=== PATIENT | female | born 1960 | race Caucasian/White ===

== ENCOUNTER → 2020-03-23 15:41 | Outpatient (BNVA) | payer MEDICARE, SELFPAY | PROVIDERS: Visit Provider Internal Medicine | DX: R61 Generalized hyperhidrosis (principal); I10 Essential (primary) hypertension; E11.49 Type 2 diabetes mellitus with other diabetic neurological complication; E89.40 Asymptomatic postprocedural ovarian failure; R63.5 Abnormal weight gain; E55.9 Vitamin D deficiency, unspecified; E78.5 Hyperlipidemia, unspecified | CPT/HCPCS: 99204 ==

== ENCOUNTER 2020-05-14 10:51 | Outpatient (CLI) | payer MEDICARE, SELFPAY ==
[2020-05-14 11:56] LABS: Creatinine Urine, Random 58 mg/dL (28-217); Microalbum Creatinine Ratio Ur 34 mg/dL (0-20); Microalbumin Random Urine 2 ug/dL (0-20)
[2020-05-14 12:06] LABS: Estmated Average Glucose 166; Hemoglobin A1C 7.4 % (4.0-6.0)
[2020-05-14 12:11] LABS: 25 Hydroxy Vitamin D 18 ng/mL (30-100); Alanine Aminotransferase 27 U/L (0-33); Albumin Level 4.6 g/dL (3.5-5.2); Alkaline Phosphatase 109 IU/L (35-105); Anion Gap 14.9 (5-19); Aspartate Amino Transferase 20 U/L (0-32); Blood Urea Nitrogen 12 mg/dL (8-23); Calcium 9.9 mg/dL (8.5-10.5); Carbon Dioxide 28 mmol/L (22-29); Chloride 101 mmol/L (98-107); Chol HDL Ratio 7.42 mg/dL (0.0-4.40); Cholesterol 230 mg/dL (0-200); Globulin 3.4 g/dL (1.3-4.6); Glomerular Filtration Rate 101.3 mL/min (90-130); Glucose 143 mg/dL (65-115); HDL Cholesterol 31 mg/dL (60-100); LDL Cholesterol Calculated 153 mg/dL (50-129); LDL HDL Ratio 4.94 RATIO (0.00-3.22); Osmolality Calculated 292 mOsm/kg (285-295); Potassium 3.9 mmol/L (3.5-5.1); Sodium 140 mmol/L (136-145); Thyroid Stimulating Hormone 0.86 uIU/mL (0.27-4.20); Total Bilirubin 0.3 mg/dL (0.15-1.2); Triglycerides 229 mg/dL (0-150)
[2020-05-14 12:38] LABS: Free T4 Free Thyroxine 1.13 ng/dL (0.82-1.77)
== END 2020-05-14 10:52 | disposition home or self-care (01) ==
LOC: RADWPI 10:52
PROVIDERS: PCP Family Medicine; Visit Provider Internal Medicine
DX: R61 Generalized hyperhidrosis (principal); I10 Essential (primary) hypertension; E11.49 Type 2 diabetes mellitus with other diabetic neurological complication; E89.40 Asymptomatic postprocedural ovarian failure; R63.5 Abnormal weight gain; E55.9 Vitamin D deficiency, unspecified; E78.5 Hyperlipidemia, unspecified
CPT/HCPCS: 80053; 80061; 82044; 82306; 83036; 84439; 84443

== ENCOUNTER 2020-05-24 14:33 | Outpatient (CLI) | payer MEDICARE, SELFPAY ==
--- NOTE | 2020-05-24 13:45 | XR_ITS ---
WS: [id number] KNEE RIGHT TECHNIQUE: 3 views of the right knee CLINICAL INFORMATION: right medial knee pain COMPARISON: None. FINDINGS: Mild degenerative arthritis with medial and lateral joint space narrowing worse the medial joint comp artment. Hypertrophic changes along the joint line. Vascular calcification. Hypertrophic patella. Mod erate narrowing at the patellofemoral articulation. XR/XR knee RT 3V* [id number] IMPRESSION: Mild tricompartmental arthritis
== END 2020-05-24 14:34 | disposition home or self-care (01) ==
PROVIDERS: PCP Family Medicine; Visit Provider Family Medicine
DX: M17.11 Unilateral primary osteoarthritis, right knee (principal)
CPT/HCPCS: 73562

== ENCOUNTER 2020-05-24 14:51 | Outpatient (CLI) | payer MEDICARE, SELFPAY ==
--- NOTE | 2020-05-24 15:01 | XR_ITS ---
WS: [id number] SCREENING DEXA SCAN [place] CLINICAL INFORMATION: POST MENOPAUSAL COMPARISON: None. FINDINGS: The L1-L4 bone mineral density measures 0.948 g/cm2. This corresponds to a T score score of -1.9 and Z score of -1.2. Left femoral neck bone mineral density measures 0.885 g/cm2. This corresponds to a T score of -1.0 an d Z score of -0.4. Right femoral neck bone mineral density measures 0.924 g/cm2. This corresponds to a T score -0.7of an d Z score of -0.1. Mean femoral neck bone mineral density measures 0.904 g/cm2. This corresponds to a T score of -0.8 an d Z score of -0.3. XR/XR DEXA axial skeleton* [id number] IMPRESSION: Osteopenia Patient's FRAX calculated 10 year probability for major osteoporotic fracture i s 28.7 % and osteoporotic hip fracture is 3.7%.
== END 2020-05-24 14:52 | disposition home or self-care (01) ==
LOC: RADWPI 14:56
PROVIDERS: Family Provider Family Medicine; PCP Family Medicine; Visit Provider Internal Medicine
DX: Z78.0 Asymptomatic menopausal state (principal); M85.89 Other specified disorders of bone density and structure, multiple sites
CPT/HCPCS: 77080

== ENCOUNTER 2020-05-27 16:17 | Emergency (ER) | payer MEDICARE, SELFPAY ==
[2020-05-27] VITALS (8 sets, daily range): BP systolic 107–153; BP diastolic 71–97; PULSE 89–112; RESP 18–20; TEMP 37; O2SAT 92–96; BMI 35.1
--- NOTE | 2020-05-27 17:41 | CTR_ITS ---
PROCEDURE INFORMATION: Exam: CT Head Without Contrast Exam date and time: 05/27/2020 6:26 PM Age: 60 years old Clinical indication: Pain; Headache not specified; Patient HX: C/O SCHERER w vision changes nausea and HTN; Additional info: SCHERER, vision changes, nausea TECHNIQUE: Imaging protocol: Computed tomography of the head without contrast. Radiation optimization: All CT scans at this facility use at least one of these dose optimization techniques: automated exposure control; mA and/or kV adjustment per patient size (includes targeted exams where dose is matched to clinical indication); or iterative reconstruction. COMPARISON: No relevant prior studies available. RADIATION DOSE METRICS: Total DLP (mGy-cm): 735.19 FINDINGS: Brain: No evidence of active or acute intracranial pathologic process, hemorrhage, or trauma. Antecedent appearing lacunar infarction anterior limb left internal capsule. No visible cerebral edema. No mass effect. No midline shift. Cerebral ventricles: No ventriculomegaly. Bones/joints: Unremarkable. No acute fracture. Paranasal sinuses: Visualized sinuses are unremarkable. No fluid levels. Mastoid air cells: Visualized mastoid air cells are well aerated. Soft tissues: Unremarkable. CT/CT head wo con* [id number] IMPRESSION: 1. No evidence of active or acute intracranial pathologic process, hemorrhage, or trauma. 2. Antecedent appearing lacunar infarction anterior limb left internal capsule. Radiation Dose CTDIVOL = (mGy): DLP = 735.19 (mGy-cm)
--- NOTE | 2020-05-27 17:42 | ECG_ITS ---
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
--- NOTE | 2020-05-27 17:42 | XRR_ITS ---
PROCEDURE INFORMATION: Exam: XR Chest, 1 View Exam date and time: 05/27/2020 6:00 PM Age: 60 years old Clinical indication: Pain; Other: Head; Additional info: Hypertension TECHNIQUE: Imaging protocol: XR of the chest Views: 1 view. COMPARISON: No relevant prior studies available. FINDINGS: Lungs: Unremarkable. No consolidation. Pleural space: Unremarkable. No pleural effusion. No pneumothorax. Heart/Mediastinum: Cardiac structures and configuration with arteriosclerosis. Bones/joints: Unremarkable. Other findings: Heavy body habitus. XR/XR chest 1V portable [id number] IMPRESSION: Nonacute.
--- NOTE | 2020-05-27 17:51 | W.ED.GENADLT ---
HPI - General Adult General: Chief complaint: General Medical Stated complaint: high bp/pruitt/blurry vision Time Seen by Provider: 05/27/20 17:43 History of Present Illness: HPI narrative: This patient is a 60-year-old female who comes in with complaints of headache, vomiting, body aches. She denies fever or cough. She has had some shortness of breath. She has not been feeling well for 4 days. The headache seems to be her main complaint. She is does not normally get headaches. She saw Dr. Walter today and Dr. Walter sent her to the ER because of high blood pressure the patient says. Patient denies any exposure to Covid that she is aware of. She has not been tested for Covid. She complains of some blurry vision and has a hoarse voice which she says is from crying. She has had a similar hoarse voice when she has had bronchitis in the past. She has not taken her blood pressure medicine today because she normally takes it at night. Onset (ago): day(s) (4) Location: head and lower extremity Severity: severe Quality: constant Pain Consistency: constant Relieving factors: none Exacerbating factors: none Associated symptoms: Reports headache(s), malaise, nausea, short of breath, vomiting and weakness; Deny chest pain, dyspnea or rash Review of Systems General: Reports: 10 or more systems reviewed and unremarkable except in HPI and below Const: Reports: malaise Eyes: Denies: change in vision ENMT: Denies: odynophagia Card: Denies: chest pain or swelling of feet/ankles Resp: Denies: dyspnea, productive cough or non-productive cough GI: Reports: nausea and vomiting : Denies: flank pain or difficulty voiding Musc: Denies: neck pain or back pain Skin/Breast: Denies: rash Neuro: Reports: headache(s) Keith/Lymph: Denies: easy bruising or easy bleeding PFSH ED PFSH: Medical History Depression Surgical History H/O: hysterectomy History of appendectomy History of bladder surgery Hx of cholecystectomy Family History Mother CAD (coronary artery disease) Stroke Grandfather Cancer mouth Sister Cancer skin Brother CAD (coronary artery disease) Sister COPD (chronic obstructive pulmonary disease) Social History Smoking and tobacco status: current every day smoker cigarettes Packs smoked per day: 1.5 Quit status (tobacco): considering quitting Alcohol intake: current Alcohol intake frequency: holidays/special occasions only Physical Exam Const: COMMON NORMALS: no acute distress, patient oriented x3, no limitations and alert GENERAL APPEARANCE: cooperative and comfortable HENMT: HEAD & SCALP: normal to inspection FACE & SINUS: normal facial exam Eye: GENERAL EYE: appearance normal, both eyes and all related structures Neck/C-Spine: COMMON NORMALS: supple, no meningeal signs and no JVD Chest: COMMONS NORMALS: normal inspection of the chest Resp: COMMON NORMALS: normal respiratory effort, No use of accessory muscles and clear to auscultation bilaterally AUSCULTATION: clear to auscultation bilaterally Cardio: COMMON NORMALS: no JVD, regular rate, regular rhythm and No murmurs present (Cardio) RATE: regular rate RHYTHM: regular rhythm GI: COMMON NORMALS: Normal to inspection, nondistended, normoactive bowel sounds present, Soft to palpation and non-tender INSPECTION: Yes normal to inspection AUSCULTATION: Yes normoactive bowel sounds PALPATION: Yes Soft to palpation Back/Pelvis: COMMON NORMALS: thoracic and lumbar spine normal to inspection Extremity: COMMON NORMALS: normal to inspection Neuro: COMMON NORMALS: patient oriented x3, moves all extremities, no focal motor deficits and no sensory deficits noted SENSORIUM/ORIENTATION: Yes alert MENINGEAL SIGNS: Yes no meningeal signs Psych: COMMON NORMALS: mental status grossly normal, cooperative and normal affect Skin: COMMON NORMALS: no rashes or lesions noted and turgor normal GENERAL SKIN EXAM: no rashes or lesions noted and turgor normal Course ED course: Patient with 4 days of not feeling well. She has had a headache, vomiting, sore throat, malaise. She also has some shortness of breath but denies cough. She needs to be ruled out for Covid. She also needs evaluation for her severe and unusual headache. CT of her head, EKG and troponins, chest x-ray, CBC and CMP are ordered. Sed rate is also ordered. Covid test has been ordered. I have ordered morphine and Zofran as well as a liter of fluid. As it is shift change I am going to sign her out to Dr. Dunaway for further care. Vital Signs: Vital signs: Vital Signs Temperature 98.6 F 05/27/20 16:22 Pulse Rate 112 H 05/27/20 16:22 Respiratory Rate 20 H 05/27/20 16:22 Blood Pressure 153/75 05/27/20 16:22 Pulse Oximetry 94 05/27/20 16:22 Discharge Plan Discharge Prescriptions: No Action atorvastatin 20 mg tablet 20 mg PO DAILY RF: 0 Januvia 25 mg tablet 25 mg PO DAILY RF: 0 multivitamin Capsule 1 cap PO DAILY RF: 0 cholecalciferol (vitamin D3) 25 mcg (1,000 unit) capsule 25 mcg PO DAILY RF: 0 cyanocobalamin (vitamin B-12) [Vitamin B-12] 5,000 mcg tablet, sublingual 5,000 mcg SUBLINGUAL DAILY RF: 0 carvedilol 3.125 mg tablet 3.125 mg PO BID RF: 0 Chantix Starting Month Box 0.5 mg (11)- 1 mg (42) tablets,dose pack See Rx Instructions PO PER PKG DIR Qty: 53 RF: 0 losartan 25 mg tablet 25 mg PO DAILY Qty: 30 RF: 0 meloxicam [Mobic] 15 mg tablet 15 mg PO DAILY Qty: 30 RF: 0 duloxetine 60 mg capsule,delayed release(DR/EC) 60 mg PO BID Qty: 4 RF: 0 pregabalin [Lyrica] 200 mg capsule 200 mg PO TID Qty: 6 RF: 0 Coding Level of Care Code ED Neuropsychology Division Chief for [facility]
[2020-05-27] MEDS: sodium chloride 0.9% 1,000 ML 999 ML IV (18:16)
[2020-05-27] MEDS: ondansetron 2 mg/ML SDV 2 mL 4 MG IVP (18:16)
[2020-05-27 18:24] LABS: Basophils # 0.1 10^3/uL (0.0-0.1); Eosinophils # 0.2 10^3/uL (0.0-0.8); Eosinophils % 1.2 %; Hematocrit 52.7 % (37.0-47.0); Hemoglobin 17.2 g/dL (11.5-15.3); Lymphocytes # 3.3 10^3/uL (0.8-4.8); Lymphocytes % 24.7 %; Mean Corpuscular HGB Conc 32.6 g/dL (30.0-36.0); Mean Corpuscular Hemoglobin 30.7 pg (28.0-34.0); Mean Corpuscular Volume 94.1 fL (81-99); Mean Platelet Volume 11.8 fL (7.4-10.4); Monocytes # 0.7 10^3/uL (0.2-0.9); Monocytes % 5.2 %; Neutrophils # 8.87 10^3/uL (1.8-7.7); Neutrophils % 67.4 %; Nucleated Red Blood Cells % 0 %; Platelet Count 232 10^3/cmm (130-400); Red Cell Distribution Width 12.5 % (12.1-15.1); White Blood Count 13.2 10^3/uL (4.0-10.0)
[2020-05-27 18:55] LABS: Alanine Aminotransferase 41 U/L (0-33); Albumin Level 4.3 g/dL (3.5-5.2); Alkaline Phosphatase 107 IU/L (35-105); Aspartate Amino Transferase 29 U/L (0-32); Blood Urea Nitrogen 16 mg/dL (8-23); Calcium 9.8 mg/dL (8.5-10.5); Carbon Dioxide 25 mmol/L (22-29); Chloride 98 mmol/L (98-107); Globulin 3.5 g/dL (1.3-4.6); Glomerular Filtration Rate 84.8 mL/min (90-130); Glucose 307 mg/dL (65-115); Osmolality Calculated 293 mOsm/kg (285-295); Sodium 135 mmol/L (136-145); Total Bilirubin 0.4 mg/dL (0.15-1.2); Total Protein 7.8 g/dL (6.6-8.7)
[2020-05-27 18:57] LABS: Troponin(5th) Baseline 7 ng/L (0-10)
[2020-05-27 18:58] LABS: SARS Covid-2 Antigen Negative (Negative)
--- NOTE | 2020-05-27 19:36 | W.ED.GENADLT ---
HPI - General Adult General: Chief complaint: General Medical Stated complaint: high bp/scherer/blurry vision Time Seen by Provider: 05/27/20 17:43 Source: patient and other (Dr. Akins) Limitations: no limitations History of Present Illness: HPI narrative: Ann-Marie is a 60-year-old female signed over to me at change of shift from Dr. Akins. Please see her note for her history, physical exam and medical decision-making notes. Patient endorsed to me as viral type syndrome with headache being the greatest complaint. Patient had not been exposed to Covid that she knew of but she had viral syndrome/flulike syndrome symptoms and was being tested for Covid here. Upon my questioning to the patient she says her symptoms have been present for the past 3 to 4 days. She said that her headaches came on gradually and got progressively worse. She did not have a sudden onset thunderclap type headache. She does state that her neck hurts but she states all of her muscles ache and hurt. She is able to freely move her neck in all directions. She has not had a fever. She does have a sore throat and occasionally she has a cough and occasionally gets shortness of breath. She has had some nausea and vomiting and loose stools. She states her voice is hoarse but she also has had bronchitis in the past and believes this could be bronchitis. Patient otherwise states she feels okay and improved at this time with the medicines given to her by Dr. Akins. Location: head and lower extremity Quality: constant Relieving factors: none Exacerbating factors: none Associated symptoms: Reports headache(s), malaise, nausea and vomiting; Deny chest pain, confusion, dyspnea, rash, palpitations or syncope Review of Systems Const: Reports: body aches, fatigue and malaise; Denies: fever(s) or chills Eyes: Reports: blurry vision; Denies: change in vision, photophobia, eye discomfort, eye discharge, eye redness or yellow eyes ENMT: Reports: throat pain and hoarseness; Denies: odynophagia, swelling of lips/tongue, ear or mastoid pain, ear discharge, change in hearing or nasal discharge Card: Denies: chest pain, palpitations, irregular heart rhythm, edema, lightheadedness, syncope, pre-syncope, dyspnea on exertion or orthopnea Resp: Reports: non-productive cough; Denies: dyspnea, productive cough, hemoptysis or chest congestion GI: Reports: nausea, vomiting and diarrhea; Denies: abdominal pain, hematemesis, coffee ground emesis, heartburn, constipation, GI cramping, hematochezia or melena : Denies: flank pain, dysuria, urinary frequency, urinary urgency or hematuria Musc: Reports: neck pain, back pain and joint pain; Denies: extremity pain, extremity swelling, joint swelling, joint redness, joint warmth or joint stiffness Skin/Breast: Denies: rash, pruritus, erythema, skin pain or skin tenderness Neuro: Reports: headache(s); Denies: numbness in extremities, weakness in extremities, sensory changes, lack of coordination, difficulty walking, dizziness, vertigo, confusion, Slurred speech present or seizure-like activity Keith/Lymph: Denies: easy bruising, easy bleeding, petechiae, purpura or enlarged lymph nodes All/Imm: Denies: urticaria, throat swelling, tongue swelling, facial swelling or acute wheezing PFSH ED PFSH: Medical History Depression Surgical History H/O: hysterectomy History of appendectomy History of bladder surgery Hx of cholecystectomy Family History Mother CAD (coronary artery disease) Stroke Grandfather Cancer mouth Sister Cancer skin Brother CAD (coronary artery disease) Sister COPD (chronic obstructive pulmonary disease) Social History Smoking and tobacco status: current every day smoker cigarettes Packs smoked per day: 1.5 Quit status (tobacco): considering quitting Alcohol intake: current Alcohol intake frequency: holidays/special occasions only Physical Exam Const: COMMON NORMALS: no acute distress, patient oriented x3, no limitations and alert GENERAL APPEARANCE: cooperative HENMT: COMMON NORMALS: normocephalic, atraumatic, external ears normal, EAC's normal and Normal external nose present HEAD & SCALP: normal to inspection, normocephalic and atraumatic FACE & SINUS: normal facial exam and face symmetric NOSE: Normal external nose present and Normal nares present EXTERNAL EAR: Yes external ears normal EXTERNAL AUDITORY CANAL: EAC's normal MOUTH: Normal oral and palatal mucosa present, lip normal and tongue normal Eye: COMMON NORMALS: Equal, round and reactive pupils present and conjunctivae normal GENERAL EYE: appearance normal, both eyes and all related structures ALIGNMENT: Yes alignment normal PERIORBITAL: periorbital findings normal EYELID: eyelids normal CONJUNCTIVA: Yes conjunctivae normal SCLERA: sclerae normal PUPIL: Yes Equal, round and reactive pupils present Neck/C-Spine: COMMON NORMALS: full ROM, no lymphadenopathy, supple, no meningeal signs and no JVD GENERAL: Yes normal visual inspection and Yes trachea midline Chest: COMMONS NORMALS: normal inspection of the chest and normal palpation of entire chest wall Resp: COMMON NORMALS: normal respiratory effort, No retractions, No use of accessory muscles and clear to auscultation bilaterally EFFORT & INSPECTION: Yes able to speak in complete sentences and Yes symmetric chest movement AUSCULTATION: clear to auscultation bilaterally, no crackles, no rales, rhonchi and wheezes Cardio: COMMON NORMALS: no JVD, regular rate, regular rhythm, S1 normal heart sound present and S2 normal heart sound present RATE: regular rate RHYTHM: regular rhythm HEART SOUNDS: S1 normal heart sound present, S2 normal heart sound present, no click, no gallops, no murmurs and no rubs GI: COMMON NORMALS: Soft to palpation and No hepatosplenomegaly present PALPATION: Yes Soft to palpation, No Tenderness to palpation present (GI), No Guarding due to palpation present (GI), No Rigid due to palpation, Yes No hepatosplenomegaly present, No Hernia present, No Palpable mass present and No Pulsatile mass present : COMMON NORMALS: Yes no CVA tenderness BLADDER/KIDNEY EXAM: Yes no CVA tenderness EXTERNAL FEMALE EXAM: No Hernia present Back/Pelvis: COMMON NORMALS: no CVA tenderness, thoracic and lumbar spine normal to inspection, no thoracic nor lumbar tenderness and thoraco-lumbar ROM normal Extremity: COMMON NORMALS: normal to inspection, full ROM, capillary refill normal, no joint enlargement, no clubbing, cyanosis or edema and no calf tenderness Neuro: COMMON NORMALS: patient oriented x3, CN's II-XII intact bilaterally, moves all extremities, no focal motor deficits and no sensory deficits noted SENSORIUM/ORIENTATION: Yes alert MENINGEAL SIGNS: Yes no meningeal signs SPEECH: speech normal Psych: COMMON NORMALS: mental status grossly normal, Normal thought process present, cooperative, normal affect, speech normal and activity/motor behavior normal SPEECH: Yes normal speech THOUGHT PROCESS: Normal thought process present Skin: COMMON NORMALS: no rashes or lesions noted, turgor normal, no jaundice, no petechiae and no mottling GENERAL SKIN EXAM: no rashes or lesions noted and turgor normal Course Vital Signs: Vital signs: Vital Signs Temperature 98.6 F 05/27/20 16:22 Pulse Rate 98 05/27/20 20:00 Respiratory Rate 18 05/27/20 20:00 Blood Pressure 138/77 05/27/20 20:00 Pulse Oximetry 92 05/27/20 20:00 MDM - General Adult MDM Narrative: Medical decision making narrative: 2023 -patient states she is feeling markedly better at this time. She is declining any further work-up of her headache as I offered a lumbar puncture although I think meningitis is unlikely. I still think it would be best to definitively rule this out but the patient adamantly refuses. She does not want to go through that discomfort. She understands the risks of missed meningitis that could cause her or severe permanent disability but she still refuses. Patient is breathing better her pulse ox is in the mid 90s and she still has wheezing. I want to place her on an inhaler, steroids and antibiotic. She agrees to return should her symptoms change or worsen but at this time her headache is resolved and she is feeling better overall. I think she likely has a viral syndrome. She agrees to return for symptoms change or worsen she understands that her work-up is not complete but at this time she would like to go home. Lab Data: Attestation: I reviewed the patient's lab results. Labs: Lab Results 05/27/20 05/27/20 05/27/20 Range/Units 18:15 18:15 18:15 WBC 13.2 H (4.0-10.0) 10^3/ uL RBC 5.60 H (4.1-5.3) 10^6/u L Hgb 17.2 H (11.5-15.3) g/dL Hct 52.7 H (37.0-47.0) % MCV 94.1 (81-99) fL MCH 30.7 (28.0-34.0) pg MCHC 32.6 (30.0-36.0) g/dL RDW 12.5 (12.1-15.1) % Plt Count 232 (130-400) 10^3/c mm MPV 11.8 H (7.4-10.4) fL Neut % (Auto) 67.4 % Lymph % (Auto) 24.7 % Mes[place] % (Auto) 5.2 % Eos % (Auto) 1.2 % Baso % (Auto) 1.0 % Neut # (Auto) 8.87 H (1.8-7.7) 10^3/u L Lymph # (Auto) 3.3 (0.8-4.8) 10^3/u L Mes[place] # (Auto) 0.7 (0.2-0.9) 10^3/u L Eos # (Auto) 0.2 (0.0-0.8) 10^3/u L Baso # (Auto) 0.1 (0.0-0.1) 10^3/u L Nucleated RBC % (a uto) 0 % Nucleated RBCs # 0.0 /100WBC ESR 20 H (0-15) mm/hr Sodium 135 L (136-145) mmol/L Potassium 4.0 (3.5-5.1) mmol/L Chloride 98 (98-107) mmol/L Carbon Dioxide 25 (22-29) mmol/L Anion Gap 16.0 (5-19) BUN 16 (8-23) mg/dL Creatinine 0.7 (0.5-0.9) mg/dL GFR Calculation 84.8 L (90-130) mL/min Glucose 307 H (65-115) mg/dL Calculated Osmolal ity 293 (285-295) mOsm/k g Calcium 9.8 (8.5-10.5) mg/dL Total Bilirubin 0.4 (0.15-1.2) mg/dL AST 29 (0-32) U/L ALT 41 H (0-33) U/L Alkaline Phosphata se 107 H (35-105) IU/L Troponin T Baselin e (0-10) ng/L Total Protein 7.8 (6.6-8.7) g/dL Albumin 4.3 (3.5-5.2) g/dL Globulin 3.5 (1.3-4.6) g/dL Urine Color (Yellow) Urine Appearance (CLEAR) Urine pH (5-7) Ur Specific Gravit y (1.005-1.030) Urine Protein (Negative) Urine Glucose (UA) (Normal) Urine Ketones (Negative) Urine Blood (Negative) Urine Nitrate (Negative) Urine Bilirubin (Negative) Urine Urobilinogen (Negative) mg/dL Ur Leukocyte Siomara ase (Negative) SARS-CoV-2 Ag (Rap id) (Negative) 05/27/20 05/27/20 05/27/20 Range/Units 18:15 18:15 19:43 WBC (4.0-10.0) 10^3/ uL RBC (4.1-5.3) 10^6/u L Hgb (11.5-15.3) g/dL Hct (37.0-47.0) % MCV (81-99) fL MCH (28.0-34.0) pg MCHC (30.0-36.0) g/dL RDW (12.1-15.1) % Plt Count (130-400) 10^3/c mm MPV (7.4-10.4) fL Neut % (Auto) % Lymph % (Auto) % Mes[place] % (Auto) % Eos % (Auto) % Baso % (Auto) % Neut # (Auto) (1.8-7.7) 10^3/u L Lymph # (Auto) (0.8-4.8) 10^3/u L [place] # (Auto) (0.2-0.9) 10^3/u L Eos # (Auto) (0.0-0.8) 10^3/u L Baso # (Auto) (0.0-0.1) 10^3/u L Nucleated RBC % (a uto) % Nucleated RBCs # /100WBC ESR (0-15) mm/hr Sodium (136-145) mmol/L Potassium (3.5-5.1) mmol/L Chloride (98-107) mmol/L Carbon Dioxide (22-29) mmol/L Anion Gap (5-19) BUN (8-23) mg/dL Creatinine (0.5-0.9) mg/dL GFR Calculation (90-130) mL/min Glucose (65-115) mg/dL Calculated Osmolal ity (285-295) mOsm/k g Calcium (8.5-10.5) mg/dL Total Bilirubin (0.15-1.2) mg/dL AST (0-32) U/L ALT (0-33) U/L Alkaline Phosphata se (35-105) IU/L Troponin T Baselin e 7 (0-10) ng/L Total Protein (6.6-8.7) g/dL Albumin (3.5-5.2) g/dL Globulin (1.3-4.6) g/dL Urine Color Yellow (Yellow) Urine Appearance Clear (CLEAR) Urine pH 5 (5-7) Ur Specific Gravit y 1.015 (1.005-1.030) Urine Protein Neg (Negative) Urine Glucose (UA) 2+ (Normal) Urine Ketones Negative (Negative) Urine Blood Neg (Negative) Urine Nitrate Negative (Negative) Urine Bilirubin Neg (Negative) Urine Urobilinogen Norm (Negative) mg/dL Ur Leukocyte Siomara ase Negative (Negative) SARS-CoV-2 Ag (Rap id) Negative (Negative) Imaging Data^: CT Head: Radiologist's impression: [place] [address] CT Scan Report Signed Patient: Sherly Hernandez #: [id number] : [facility][id number] Age/Sex: 60 / FADM Date: 05/27/20 Loc: ERRoom/Bed: Attending Dr: Ordering Provider/Ordering MD: Yashira Akins MD Date of Service: 05/27/20 Procedure(s): CT head wo con* [id number] Accession Number(s): [id number] Report Number: [id number] PROCEDURE INFORMATION: Exam: CT Head Without Contrast Exam date and time: 05/27/2020 6:26 PM Age: 60 years old Clinical indication: Pain; Headache not specified; Patient HX: C/O SCHERER w vision changes nausea and HTN; Additional info: SCHERER, vision changes, nausea TECHNIQUE: Imaging protocol: Computed tomography of the head without contrast. Radiation optimization: All CT scans at this facility use at least one of these dose optimization techniques: automated exposure control; mA and/or kV adjustment per patient size (includes targeted exams where dose is matched to clinical indication); or iterative reconstruction. COMPARISON: No relevant prior studies available. RADIATION DOSE METRICS: Total DLP (mGy-cm): 735.19 FINDINGS: Brain: No evidence of active or acute intracranial pathologic process, hemorrhage, or trauma. Antecedent appearing lacunar infarction anterior limb left internal capsule. No visible cerebral edema. No mass effect. No midline shift. Cerebral ventricles: No ventriculomegaly. Bones/joints: Unremarkable. No acute fracture. Paranasal sinuses: Visualized sinuses are unremarkable. No fluid levels. Mastoid air cells: Visualized mastoid air cells are well aerated. Soft tissues: Unremarkable. CT/CT head wo con* [id number] IMPRESSION: 1. No evidence of active or acute intracranial pathologic process, hemorrhage, or trauma. 2. Antecedent appearing lacunar infarction anterior limb left internal capsule. Radiation Dose CTDIVOL = (mGy): DLP = 735.19 (mGy-cm) Dictated By:Jamal Latham Signed By:Jamal LathamSicaitlin Date/Time:05/27/201949 DD/ 47 CXR: Attestation: I personally reviewed and interpreted this imaging study as follows: My impression: No acute cardiopulmonary findings. EKG Data^: EKG 1: Attestation: I personally reviewed and interpreted this EKG as follows: EKG interpretation date: 05/27/20 EKG interpretation time: 18:05 Interpretation: Sinus tachycardia at 106 beats a minute, left axis deviation, left anterior fascicular block, no blocks, normal intervals, no acute ST-T wave changes. Computer generated interpretation: Head CT 05/27/20 17:41 IMPRESSION: 1. No evidence of active or acute intracranial pathologic process, hemorrhage, or trauma. 2. Antecedent appearing lacunar infarction anterior limb left internal capsule. Radiation Dose CTDIVOL = (mGy): DLP = 735.19 (mGy-cm) Chest X-Ray 05/27/20 17:42 IMPRESSION: Nonacute. EKG 2: Attestation: I personally reviewed and interpreted this EKG as follows: EKG interpretation date: 05/27/20 EKG interpretation time: 19:52 Interpretation: Normal sinus rhythm at 98 beats a minute, left axis deviation, borderline LVH, no blocks, normal intervals, PACs present, no acute ST-T wave changes. Computer generated interpretation: Head CT 05/27/20 17:41 IMPRESSION: 1. No evidence of active or acute intracranial pathologic process, hemorrhage, or trauma. 2. Antecedent appearing lacunar infarction anterior limb left internal capsule. Radiation Dose CTDIVOL = (mGy): DLP = 735.19 (mGy-cm) Chest X-Ray 05/27/20 17:42 IMPRESSION: Nonacute. Discharge Plan Discharge Patient Disposition: Home Clinical Impression: Bronchitis Condition: Stable Prescriptions: New Decadron 6 mg tablet 6 mg PO DAILY Qty: 10 RF: 0 doxycycline hyclate 100 mg capsule 100 mg PO BID 10 Days Qty: 20 RF: 0 Tessalon Perles 100 mg capsule 200 mg PO TID PRN (Reason: cough) Qty: 60 RF: 0 albuterol sulfate 90 mcg/actuation HFA aerosol inhaler 2 inh INHALATION Q4H PRN (Reason: shortness of breath or wheezing) Qty: 6.7 RF: 0 No Action atorvastatin 20 mg tablet 20 mg PO DAILY RF: 0 Januvia 25 mg tablet 25 mg PO DAILY RF: 0 multivitamin Capsule 1 cap PO DAILY RF: 0 cholecalciferol (vitamin D3) 25 mcg (1,000 unit) capsule 25 mcg PO DAILY RF: 0 cyanocobalamin (vitamin B-12) [Vitamin B-12] 5,000 mcg tablet, sublingual 5,000 mcg SUBLINGUAL DAILY RF: 0 carvedilol 3.125 mg tablet 3.125 mg PO BID RF: 0 Chantix Starting Month Box 0.5 mg (11)- 1 mg (42) tablets,dose pack See Rx Instructions PO PER PKG DIR Qty: 53 RF: 0 losartan 25 mg tablet 25 mg PO DAILY Qty: 30 RF: 0 meloxicam [Mobic] 15 mg tablet 15 mg PO DAILY Qty: 30 RF: 0 duloxetine 60 mg capsule,delayed release(DR/EC) 60 mg PO BID Qty: 4 RF: 0 pregabalin [Lyrica] 200 mg capsule 200 mg PO TID Qty: 6 RF: 0 Discharge Orders: Discharge Order (Routine); Ordered 05/27/20 Ordered By: Raquel Dunaway Referrals: Lambert,Lilliam, DO [Primary Care Provider] - 1-3 days Discharge Diet: Usual diet Discharge Activity: Increase activity as tolerated Patient Instructions: Acute Bronchitis (ED), Viral Syndrome (ED) Activity Restrictions/Additional Instructions: Please return to the ER immediately for any of the signs or symptoms listed on your discharge instruction sheets, worsening/changing of your symptoms, you are not getting better as quickly as expected, or for ANY other cause or concerns. Take the medicines as I have prescribed them. Keep yourself at home and quarantined away from others until the results of your second Covid test is made known. We will call you with the results and instruct you on what to do further at that time. If you change your mind and would like further care here please return to the ER at any time. Sign Out Sign Out Data: Patient Sign Out occurred on 05/27/20 at 18:25. Patient's care was discussed, and care was transferred from to Raquel Dunaway. Coding Level of Care Code ED Stunner Animal for Becky Fwd Exam Comprehensive
--- NOTE | 2020-05-27 19:42 | ECG_ITS ---
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1960 Requested By: Yashira Rubio Order Number: [id number] Reading MD: MASHA MALLOY Measurements Intervals [place] Rate: 98 P: 66 AR: 145 QRS: -26 QRSD: 73 T: 78 QT: 335 QTc: 428 Interpretive Statements SINUS RHYTHM WITH OCCASIONAL SUPRAVENTRICULAR PREMATURE COMPLEXES BORDERLINE LEFT AXIS DEVIATION [QRS AXIS < -20] NONSPECIFIC T-WAVE ABNORMALITY Compared to ECG 05/27/2020 18:05:52 T-wave abnormality now present Sinus tachycardia no longer present Myocardial infarct finding no longer present Electronically Signed On 05-28-2020 18:32:57 CDT by MASHA MALLOY [id number]
[2020-05-27 19:53] LABS: Erythrocyte Sedimentation Rate 20 mm/hr (0-15)
[2020-05-27 19:55] LABS: Add Urine Microscopic? NO
[2020-05-27 19:57] LABS: Bilirubin Urine Neg (Negative); Blood Urine Neg (Negative); Glucose Urine UA 2+ (Normal); Ketones Urine Negative (Negative); Nitrate Urine Negative (Negative); Protein Urine Neg (Negative); Specific Gravity, Urine 1.015 (1.005-1.030); Urine Appearance Clear (CLEAR); Urine Color Yellow (Yellow); pH Urine 5 (5-7)
[2020-05-27 19:58] LABS: Leukocyte Esterase Urine Negative (Negative); Urobilinogen Urine Norm (Negative)
[2020-05-27] MEDS: dexamethasone 10 mg/mL INJ IVP (20:49)
[2020-05-27 21:19] LABS: Troponin 5 2HR 7.06 ng/L (0-10); Troponin 5 2HR Delta 0.06 ABS# (0-10)
[2020-05-27] MEDS: albuterol 8 gm MDI 2 PUFF INHALATION (21:58)
[2020-05-28 18:31] LABS: Coronavirus Lab Test PTC Negative
== END 2020-05-27 22:00 | disposition home or self-care (01) ==
PROVIDERS: Emergency Medicine; Emergency Provider Emergency Medicine; PCP Family Medicine
DX: I10 Essential (primary) hypertension (principal); F17.210 Nicotine dependence, cigarettes, uncomplicated
CPT/HCPCS: 12345; 70450; 71045; 80053; 81003; 84484; 85025; 85651; 87426; 87635; 93005; 94640; 96361; 96374; 96375; 99284; J0131; J1100; J2405; J3535; J7030

== ENCOUNTER 2020-05-29 10:07 | Outpatient (CLI) | payer MEDICARE, SELFPAY | END 2020-05-29 10:08 | disposition home or self-care (01) | LOC: LAB 10:13 | PROVIDERS: PCP Family Medicine; Visit Provider Internal Medicine | DX: E11.49 Type 2 diabetes mellitus with other diabetic neurological complication (principal); E55.9 Vitamin D deficiency, unspecified; E78.5 Hyperlipidemia, unspecified; E89.40 Asymptomatic postprocedural ovarian failure; I10 Essential (primary) hypertension; R61 Generalized hyperhidrosis; R63.5 Abnormal weight gain | CPT/HCPCS: 82530 ==

== ENCOUNTER → 2020-06-22 14:19 | Outpatient (BNVA) | payer MEDICARE, SELFPAY | PROVIDERS: PCP Family Medicine; Visit Provider Internal Medicine | DX: E11.49 Type 2 diabetes mellitus with other diabetic neurological complication (principal); E55.9 Vitamin D deficiency, unspecified; G89.29 Other chronic pain; I10 Essential (primary) hypertension; M79.671 Pain in right foot; M79.672 Pain in left foot; M85.89 Other specified disorders of bone density and structure, multiple sites; R61 Generalized hyperhidrosis; R63.5 Abnormal weight gain | CPT/HCPCS: 99215 ==

== ENCOUNTER 2020-10-02 17:41 | Inpatient (IN) | payer MEDICARE, SELFPAY ==
[2020-10-02] VITALS (10 sets, daily range): BP systolic 111–151; BP diastolic 72–105; PULSE 80–133; RESP 18–28; TEMP 36.4; O2SAT 88–98; BMI 34.0
--- NOTE | 2020-10-02 17:45 | XRR_ITS ---
PROCEDURE INFORMATION: Exam: XR Chest Exam date and time: 10/02/2020 5:59 PM Age: 60 years old Clinical indication: Chest pain; Type not specified; Additional info: SOB TECHNIQUE: Imaging protocol: XR of the chest Views: 1 view. COMPARISON: CR XR chest 1V portable [id number] 05/27/2020 5:47 PM FINDINGS: The lungs are clear of infiltrate. There are no pleural effusions or pneumothorax. The heart size and pulmonary vascularity are normal. XR/XR chest 1V portable [id number] IMPRESSION: No active disease.
--- NOTE | 2020-10-02 17:46 | ECG_ITS ---
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: : 1960 Requested By: Dafne Wooten Order Number: [id number] Reading MD: MASHA MALLOY Measurements Intervals [place] Rate: 114 P: 61 GA: 153 QRS: -33 QRSD: 81 T: 62 QT: 337 QTc: 464 Interpretive Statements SINUS TACHYCARDIA LEFT AXIS DEVIATION [QRS AXIS < -30] LOW QRS VOLTAGE IN PRECORDIAL LEADS [QRS DEFLECTION < 1.0 mV IN CHEST LEADS] SEPTAL MYOCARDIAL INFARCTION , PROBABLY OLD [40+ ms Q WAVE IN V1/V2] Compared to ECG 05/27/2020 19:52:42 Low QRS voltage now present Myocardial infarct finding now present Sinus rhythm no longer present T-wave abnormality no longer present Electronically Signed On 10-03-2020 18:29:48 HEAVY TRUCK TECHNICIAN by MASHA MALLOY [id number]
[2020-10-02 18:09] LABS: ABG PCO2 52.8 mmHg (35-45); ABG PH Result 7.29 (7.35-7.45); Arterial Blood Gas Hematocrit 50.8 % (37-47); Base Excess ABG -2.4 mmol/L (-2.0-2.0); Blood Gas Allen Test Pos; Blood Gas Operator Identificat CAK; Blood Gas Sample Site Radial, left; Blood Gas Sample Type Arterial; Carboxyhemoglobin 5.5 %THgb (0.4-20.1); HCO3 ABG 25.2 mmol/L (22-26); HGB O2 Sat 89.9 % (95-100); Methemoglobin 0.8 % (0.4-1.5); Oxygen Device NC; Total Hemoglobin 16.6 g/dL (12-16)
[2020-10-02] MEDS: LORazepam 2 mg/mL INJ 1 mL 1 MG IVP (18:19)
[2020-10-02 18:23] LABS: Basophils # 0.1 10^3/uL (0.0-0.1); Basophils % 1.1 %; Eosinophils # 0.2 10^3/uL (0.0-0.8); Eosinophils % 1.3 %; Hematocrit 51.4 % (37.0-47.0); Hemoglobin 16.4 g/dL (11.5-15.3); Lymphocytes # 4.4 10^3/uL (0.8-4.8); Lymphocytes % 37.6 %; Mean Corpuscular HGB Conc 31.9 g/dL (30.0-36.0); Mean Corpuscular Hemoglobin 30.4 pg (28.0-34.0); Mean Corpuscular Volume 95.2 fL (81-99); Mean Platelet Volume 12.8 fL (7.4-10.4); Monocytes # 0.8 10^3/uL (0.2-0.9); Monocytes % 6.4 %; Nucleated Red Blood Cells % 0 %; Platelet Count 175 10^3/cmm (130-400); Red Cell Distribution Width 12.4 % (12.1-15.1); White Blood Count 11.7 10^3/uL (4.0-10.0)
[2020-10-02 18:44] LABS: Troponin(5th) Baseline 20 ng/L (0-10)
[2020-10-02 18:59] LABS: Alanine Aminotransferase 34 U/L (0-33); Albumin Level 4.1 g/dL (3.5-5.2); Alkaline Phosphatase 106 IU/L (35-105); Anion Gap 16.9 (5-19); Aspartate Amino Transferase 42 U/L (0-32); Blood Urea Nitrogen 13 mg/dL (8-23); Calcium 8.9 mg/dL (8.5-10.5); Carbon Dioxide 25 mmol/L (22-29); Chloride 105 mmol/L (98-107); Globulin 2.8 g/dL (1.3-4.6); Glomerular Filtration Rate 63.4 mL/min (90-130); Glucose 288 mg/dL (65-115); NT Pro B Type Natriuretic Pept 90 pg/mL (0-125); Osmolality Calculated 307 mOsm/kg (285-295); Potassium 3.9 mmol/L (3.5-5.1); Sodium 143 mmol/L (136-145); Total Bilirubin 0.2 mg/dL (0.15-1.2); Total Protein 6.9 g/dL (6.6-8.7)
[2020-10-02 19:04] LABS: INR 0.96 (0.8-1.2)
--- NOTE | 2020-10-02 20:08 | W.ED.SOB ---
HPI - SOB/Dyspnea General: Chief Complaint: Shortness of Breath/Dyspnea Stated Complaint: Resp Distress Time Seen by Provider: 10/02/20 17:44 History of Present Illness: HPI Narrative: 60-year-old female who denies history of COPD. She does not use oxygen at home. She notes that she became short of breath earlier today. She has been short of breath according to her boyfriend on and off the past few days. Today it was much more significant. His inhaler, which she gave her a dose of helped some, but she was still having significant trouble breathing. She presents here in respiratory distress. MD elicited complaint: shortness of breath, cough and anxiety Timing: constant and progressively worsening Severity: severe Exacerbating factors: exertion Relieving factors: nothing Associated symptoms: Reports chest congestion and cough; Deny chest pain, dizziness, fever(s), nausea or vomiting Treatment prior to arrival: oxygen and bronchodilator Review of Systems Const: Denies: fever(s) Eyes: Denies: change in vision ENMT: Denies: odynophagia, epistaxis or sinus pain Card: Denies: chest pain Resp: Reports: chest congestion GI: Denies: nausea or vomiting : Denies: dysuria or hematuria Musc: Denies: neck pain Skin/Breast: Denies: rash or erythema Neuro: Denies: headache(s), dizziness or vertigo Psych: Denies: anxiety PFSH ED PFSH: Medical History Depression Diabetes mellitus type 2 with neurological manifestations Diabetic neuropathy Essential hypertension Hyperhidrosis Hyperlipidemia Surgical menopause Surgical History H/O: hysterectomy History of appendectomy History of bladder surgery Hx of cholecystectomy Family History Mother CAD (coronary artery disease) Stroke Grandfather Cancer mouth Sister Cancer skin Brother CAD (coronary artery disease) Sister COPD (chronic obstructive pulmonary disease) Social History Smoking and tobacco status: current every day smoker cigarettes Packs smoked per day: 1.5 Quit status (tobacco): considering quitting Alcohol intake: current Alcohol intake frequency: holidays/special occasions only Physical Exam Const: COMMON NORMALS: patient oriented x3 GENERAL APPEARANCE: in distress, anxious and ill appearing HENMT: COMMON NORMALS: normocephalic and Normal external nose present HEAD & SCALP: normocephalic FACE & SINUS: normal facial exam NOSE: Normal external nose present Eye: COMMON NORMALS: Equal, round and reactive pupils present and EOMs intact bilaterally PUPIL: Yes Equal, round and reactive pupils present Chest: COMMONS NORMALS: normal inspection of the chest Resp: EFFORT & INSPECTION: Yes symmetric chest movement, Yes tachypneic, Yes respiratory distress, Yes labored, No stridor, No Actively coughing, Yes uses accessory muscles and Yes audible wheezes Cardio: COMMON NORMALS: regular rhythm RATE: tachycardic RHYTHM: regular rhythm GI: COMMON NORMALS: Normal to inspection, nondistended, normoactive bowel sounds present, Soft to palpation and non-tender PALPATION: Yes Soft to palpation Neuro: COMMON NORMALS: patient oriented x3, moves all extremities and no focal motor deficits Skin: COMMON NORMALS: no rashes or lesions noted GENERAL SKIN EXAM: no rashes or lesions noted Course Consultations: Consultation #1: [email or web address] Vital Signs: Vital signs: Vital Signs Temperature 97.5 F L 10/02/20 17:41 Pulse Rate 90 10/02/20 20:15 Respiratory Rate 20 H 10/02/20 20:15 Blood Pressure 111/72 10/02/20 20:15 Pulse Oximetry 97 10/02/20 20:15 MDM - SOB/Dyspnea MDM Narrative: Medical decision making narrative: 60-year-old female with hypoxic hypercapnic respiratory acidosis and failure. She was placed on BiPAP, and after Ativan, tolerated it well. pH improved from 7.28-7.34. BiPAP was removed currently and she is back on nasal cannula oxygenation white blood cell count is 11.7. Hemoglobin 16. Electrolytes and renal function are normal. Chest x-ray is negative for infiltrate. CTA is pending. Her delta troponin is 122 which raises suspicion for non-STEMI although she never really had significant chest pain. Suppose pulmonary embolism could cause an increased delta troponin as well. She will be admitted to [facility]. Lab Data: Labs: Lab Results 10/02/20 10/02/20 10/02/20 Range/Units 17:58 18:05 18:05 WBC 11.7 H (4.0-10.0) 10^3/ uL RBC 5.40 H (4.1-5.3) 10^6/u L Hgb 16.4 H (11.5-15.3) g/dL Hct 51.4 H (37.0-47.0) % MCV 95.2 (81-99) fL MCH 30.4 (28.0-34.0) pg MCHC 31.9 (30.0-36.0) g/dL RDW 12.4 (12.1-15.1) % Plt Count 175 (130-400) 10^3/c mm MPV 12.8 H (7.4-10.4) fL Neut % (Auto) 53.0 % Lymph % (Auto) 37.6 % Mccormick % (Auto) 6.4 % Eos % (Auto) 1.3 % Baso % (Auto) 1.1 % Neut # (Auto) 6.20 (1.8-7.7) 10^3/u L Lymph # (Auto) 4.4 (0.8-4.8) 10^3/u L Mccormick # (Auto) 0.8 (0.2-0.9) 10^3/u L Eos # (Auto) 0.2 (0.0-0.8) 10^3/u L Baso # (Auto) 0.1 (0.0-0.1) 10^3/u L Nucleated RBC % (a uto) 0 % Nucleated RBCs # 0.0 /100WBC PT 13.00 (12.1-14.9) SECO NDS INR 0.96 (0.8-1.2) Specimen Type Arterial Sample Site Radial, left ABG pH 7.29 L (7.35-7.45) ABG pCO2 52.8 H (35-45) mmHg ABG pO2 84.0 (80.0-100.0) mmH g ABG HCO3 25.2 (22-26) mmol/L ABG Base Excess -2.4 L (-2.0-2.0) mmol/ L Chucky Test Pos Hematocrit 50.8 H (37-47) % Hgb O2 Saturation 89.9 L (95-100) % Carboxyhemoglobin 5.5 (0.4-20.1) %THgb Methemoglobin 0.8 (0.4-1.5) % Total Hemoglobin 16.6 H (12-16) g/dL O2 Delivery Device Nc O2 Liters/Min 5.0 % FiO2 % Hired Hand ID Cak Sodium (136-145) mmol/L Potassium (3.5-5.1) mmol/L Chloride (98-107) mmol/L Carbon Dioxide (22-29) mmol/L Anion Gap (5-19) BUN (8-23) mg/dL Creatinine (0.5-0.9) mg/dL GFR Calculation (90-130) mL/min Glucose (65-115) mg/dL Calculated Osmolal ity (285-295) mOsm/k g Calcium (8.5-10.5) mg/dL Total Bilirubin (0.15-1.2) mg/dL AST (0-32) U/L ALT (0-33) U/L Alkaline Phosphata se (35-105) IU/L Troponin T Baselin e (0-10) ng/L Troponin T 120 Min [place] (0-10) ng/L Delta Troponin T (0-10) ABS# NT-Pro-B Natriuret Pep (0-125) pg/mL Total Protein (6.6-8.7) g/dL Albumin (3.5-5.2) g/dL Globulin (1.3-4.6) g/dL 10/02/20 10/02/20 10/02/20 Range/Units 18:05 18:05 20:25 WBC (4.0-10.0) 10^3/ uL RBC (4.1-5.3) 10^6/u L Hgb (11.5-15.3) g/dL Hct (37.0-47.0) % MCV (81-99) fL MCH (28.0-34.0) pg MCHC (30.0-36.0) g/dL RDW (12.1-15.1) % Plt Count (130-400) 10^3/c mm MPV (7.4-10.4) fL Neut % (Auto) % Lymph % (Auto) % Mccormick % (Auto) % Eos % (Auto) % Baso % (Auto) % Neut # (Auto) (1.8-7.7) 10^3/u L Lymph # (Auto) (0.8-4.8) 10^3/u L M[place]ormick # (Auto) (0.2-0.9) 10^3/u L Eos # (Auto) (0.0-0.8) 10^3/u L Baso # (Auto) (0.0-0.1) 10^3/u L Nucleated RBC % (a uto) % Nucleated RBCs # /100WBC PT (12.1-14.9) SECO NDS INR (0.8-1.2) Specimen Type Sample Site ABG pH (7.35-7.45) ABG pCO2 (35-45) mmHg ABG pO2 (80.0-100.0) mmH g ABG HCO3 (22-26) mmol/L ABG Base Excess (-2.0-2.0) mmol/ L Chucky Test Hematocrit (37-47) % Hgb O2 Saturation (95-100) % Carboxyhemoglobin (0.4-20.1) %THgb Methemoglobin (0.4-1.5) % Total Hemoglobin (12-16) g/dL O2 Delivery Device O2 Liters/Min % FiO2 % Hired Hand ID Sodium 143 (136-145) mmol/L Potassium 3.9 (3.5-5.1) mmol/L Chloride 105 (98-107) mmol/L Carbon Dioxide 25 (22-29) mmol/L Anion Gap 16.9 (5-19) BUN 13 (8-23) mg/dL Creatinine 0.9 (0.5-0.9) mg/dL GFR Calculation 63.4 L (90-130) mL/min Glucose 288 H (65-115) mg/dL Calculated Osmolal ity 307 H (285-295) mOsm/k g Calcium 8.9 (8.5-10.5) mg/dL Total Bilirubin 0.2 (0.15-1.2) mg/dL AST 42 H (0-32) U/L ALT 34 H (0-33) U/L Alkaline Phosphata se 106 H (35-105) IU/L Troponin T Baselin e 20 H (0-10) ng/L Troponin T 120 Min [place] 142.9 H (0-10) ng/L Delta Troponin T 122.9 H* (0-10) ABS# NT-Pro-B Natriuret Pep 90 (0-125) pg/mL Total Protein 6.9 (6.6-8.7) g/dL Albumin 4.1 (3.5-5.2) g/dL Globulin 2.8 (1.3-4.6) g/dL 10/02/20 Range/Units 21:10 WBC (4.0-10.0) 10^3/ uL RBC (4.1-5.3) 10^6/u L Hgb (11.5-15.3) g/dL Hct (37.0-47.0) % MCV (81-99) fL MCH (28.0-34.0) pg MCHC (30.0-36.0) g/dL RDW (12.1-15.1) % Plt Count (130-400) 10^3/c mm MPV (7.4-10.4) fL Neut % (Auto) % Lymph % (Auto) % [place] % (Auto) % Eos % (Auto) % Baso % (Auto) % Neut # (Auto) (1.8-7.7) 10^3/u L Lymph # (Auto) (0.8-4.8) 10^3/u L [place] # (Auto) (0.2-0.9) 10^3/u L Eos # (Auto) (0.0-0.8) 10^3/u L Baso # (Auto) (0.0-0.1) 10^3/u L Nucleated RBC % (a uto) % Nucleated RBCs # /100WBC PT (12.1-14.9) SECO NDS INR (0.8-1.2) Specimen Type Arterial Sample Site Radial, right ABG pH 7.34 L (7.35-7.45) ABG pCO2 52.0 H (35-45) mmHg ABG pO2 120.0 H (80.0-100.0) mmH g ABG HCO3 27.9 H (22-26) mmol/L ABG Base Excess 0.9 (-2.0-2.0) mmol/ L Chucky Test Pos Hematocrit 48.9 H (37-47) % Hgb O2 Saturation (95-100) % Carboxyhemoglobin (0.4-20.1) %THgb Methemoglobin (0.4-1.5) % Total Hemoglobin (12-16) g/dL O2 Delivery Device Bipap O2 Liters/Min % FiO2 35.0 % Hired Hand ID [place] Sodium (136-145) mmol/L Potassium (3.5-5.1) mmol/L Chloride (98-107) mmol/L Carbon Dioxide (22-29) mmol/L Anion Gap (5-19) BUN (8-23) mg/dL Creatinine (0.5-0.9) mg/dL GFR Calculation (90-130) mL/min Glucose (65-115) mg/dL Calculated Osmolal ity (285-295) mOsm/k g Calcium (8.5-10.5) mg/dL Total Bilirubin (0.15-1.2) mg/dL AST (0-32) U/L ALT (0-33) U/L Alkaline Phosphata se (35-105) IU/L Troponin T Baselin e (0-10) ng/L Troponin T 120 Min [place] (0-10) ng/L Delta Troponin T (0-10) ABS# NT-Pro-B Natriuret Pep (0-125) pg/mL Total Protein (6.6-8.7) g/dL Albumin (3.5-5.2) g/dL Globulin (1.3-4.6) g/dL Critical Care Time Critical Care Time: Critical Care Time: Yes Total Critical Care Time: 35 Attestation: This case had a high probability of a clinically significant, sudden, or life threatening deterioration of this patient's condition which required my full and direct attention, intervention and personal management. Discharge Plan Discharge Patient Disposition: Admitted As Inpatient Clinical Impression: Non-ST elevated myocardial infarction (non-STEMI) Respiratory failure Qualifiers: Chronicity: acute Respiratory failure complication: hypoxia and hypercapnia Qualified Code(s): J96.01 - Acute respiratory failure with hypoxia Condition: Fair Coding Level of Care Code ED Weight Training Instructor for Becky Fwd Exam Comprehensive
[2020-10-02 21:03] LABS: Troponin 5 2HR 142.9 ng/L (0-10)
[2020-10-02 21:04] LABS: Troponin 5 2HR Delta 122.9 ABS# (0-10)
--- NOTE | 2020-10-02 21:13 | CTR_ITS ---
PROCEDURE INFORMATION: Exam: CT Angiography Chest With Contrast Exam date and time: 10/02/2020 9:31 PM Age: 60 years old Clinical indication: Chest pain; Type not specified TECHNIQUE: Imaging protocol: Computed tomographic angiography of the chest with contrast. 3D rendering (Not supervised by radiologist): MIP and/or 3D reconstructed images were created by the technologist. Radiation optimization: All CT scans at this facility use at least one of these dose optimization techniques: automated exposure control; mA and/or kV adjustment per patient size (includes targeted exams where dose is matched to clinical indication); or iterative reconstruction. Contrast material: OMNIPAQUE 350; Contrast volume: 95 ml; Contrast route: INTRAVENOUS (IV); COMPARISON: CR XR chest 1V portable [id number] 10/02/2020 6:03 PM RADIATION DOSE METRICS: Total DLP (mGy-cm): 617.12 FINDINGS: Pulmonary arteries: Normal. No pulmonary emboli. Aorta: There is a focal aneurysmal dilatation of the mid descending thoracic aorta measuring approximately 3.3 cm AP dimension by 3.4 cm craniocaudal dimension by 3.4 cm transverse dimension . There is no evidence for dissection or extravasation. Lungs: Hazy and linear opacities are present within the right lung base likely representing atelectasis versus parenchymal and/or pleural scarring. Pleural spaces: Unremarkable. No pneumothorax. No pleural effusion. Heart: Unremarkable. No cardiomegaly. No pericardial effusion. Lymph nodes: Unremarkable. No enlarged lymph nodes. Liver: There is hypoattenuation of the hepatic parenchyma compatible with fatty infiltration. Bones/joints: Unremarkable. No acute fracture. Soft tissues: Unremarkable. CT/CT angio chest PE protcl [id number] IMPRESSION: 1. There is no evidence for pulmonary emboli. 2. 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 There is no evidence for dissection or extravasation. 3. Minimal right basilar atelectasis versus parenchymal pleural scarring. 4. Fatty infiltration the liver Radiation Dose CTDIVOL = (mGy): DLP = 617.12 (mGy-cm)
[2020-10-02 21:19] LABS: ABG PH Result 7.34 (7.35-7.45); Arterial Blood Gas Hematocrit 48.9 % (37-47); Base Excess ABG 0.9 mmol/L (-2.0-2.0); Blood Gas Allen Test Pos; Blood Gas Sample Site Radial, right; Blood Gas Sample Type Arterial; HCO3 ABG 27.9 mmol/L (22-26); Oxygen Device BIPAP
[2020-10-02] MEDS: clopidogrel 300 mg Tablet PO (21:29)
[2020-10-02] MEDS: aspirin 325 mg Tablet PO (21:29)
[2020-10-02] MEDS: enoxaparin 80 mg/0.8 mL Syringe SUBCUT (21:29)
--- NOTE | 2020-10-02 22:34 | PM.HP ---
Providers/Chief Complaint Primary Care Provider: Lilliam Walter DO Chief Complaint: Resp Distress History of Present Illness Kristel Hernandez is a 60 year old female with a history of COPD, tobacco use, diabetes mellitus type 2 presented to the emergency department with a complaint of shortness of breath, nonproductive cough and wheezing since this morning. Patient used her spouse inhaler with partial improvement but became worse again this evening and therefore presented to the emergency department. Patient was hypoxic, blood gas showed CO2 retention and acidosis. She was initially requiring 6 L of oxygen by nasal cannula, this was transitioned to BiPAP. Patient was given neb treatment. She had improved during my assessment in the ED and was tolerated oxygen by nasal cannula. Troponin is elevated. Patient is hospitalized for further management. Review of Systems Narrative: Patient denied any fever, no chest pain, no palpitation. Except as documented, all other systems reviewed and negative. Medications/Allergies Home Medications Medication Instructions Recorded Confirmed Last Taken Type cholecalciferol (vitamin D3) 25 25 mcg PO DAILY 03/23/20 06/22/20 Unknown History mcg (1,000 unit) capsule cyanocobalamin (vitamin B-12) 5,000 mcg SUBLINGUAL DAILY 03/23/20 06/22/20 Unknown History 5,000 mcg sublingual tablet multivitamin 1 cap PO DAILY 03/23/20 06/22/20 Unknown History duloxetine 60 mg capsule,delayed 60 mg PO BID #4 cap 04/06/20 06/22/20 Unknown Rx release pregabalin 200 mg capsule 200 mg PO TID #6 cap 04/06/20 06/22/20 Unknown Rx varenicline 0.5 mg (11)-1 mg (42) See Rx Instructions PO PER PKG DIR 05/10/20 06/22/20 Unknown Rx tablets in a dose pack #53 each albuterol sulfate 2 inh INHALATION Q4H PRN #6.7 gm 05/27/20 06/22/20 Unknown Rx benzonatate [Tessalon Perles] 200 mg PO TID PRN #60 cap 05/27/20 06/22/20 Unknown Rx alendronate 70 mg tablet 70 mg PO .once weekly #12 tab 06/07/20 06/22/20 Unknown Rx atorvastatin 20 mg tablet 20 mg PO DAILY #30 tab 06/20/20 06/22/20 Unknown Rx meloxicam 15 mg tablet 15 mg PO DAILY #30 tab 06/20/20 06/22/20 Unknown Rx liraglutide 0.6 mg/0.1 mL (18 mg/3 See Rx Instructions SUBCUT 07/20/20 Unknown Rx mL) subcutaneous pen injector .COMPLEX #6 ml pen needle, diabetic 32 gauge x #100 ea 08/01/20 Unknown Rx carvedilol 3.125 mg tablet 3.125 mg PO BID #60 tab 08/08/20 Unknown Rx losartan 25 mg tablet 25 mg PO DAILY #30 tab 08/08/20 Unknown Rx Allergies Allergy/AdvReac Type Severity Reaction Status Date / Time adhesive tape Allergy ALGY-Rash Verified 06/22/20 14:27 penicillin G benethamine Allergy ALGY-Swell Verified 06/22/20 14:27 [benethamine penicillin] Lip/Tongue/Throat PFSH Acute PFSH: Medical History Depression Diabetes mellitus type 2 with neurological manifestations Diabetic neuropathy Essential hypertension Hyperhidrosis Hyperlipidemia Surgical menopause Surgical History H/O: hysterectomy History of appendectomy History of bladder surgery Hx of cholecystectomy Family History Mother CAD (coronary artery disease) Stroke Grandfather Cancer mouth Sister Cancer skin Brother CAD (coronary artery disease) Sister COPD (chronic obstructive pulmonary disease) Social History Smoking and tobacco status: current every day smoker cigarettes Packs smoked per day: 1.5 Quit status (tobacco): considering quitting Alcohol intake: current Alcohol intake frequency: holidays/special occasions only Vitals/I&O/Wt Last Vital Signs Temp 97.5 F L 10/02/20 17:41 Pulse 88 10/02/20 22:32 Resp 21 H 10/02/20 22:32 BP 132/90 10/02/20 22:32 Pulse Ox 90 10/02/20 22:32 Weight last 48 hrs Weight 81.647 kg Physical Exam Const: COMMON NORMALS: patient oriented x3 and alert NUTRITIONAL APPEARANCE: obese HENMT: COMMON NORMALS: normocephalic, Normal nasal mucous membranes and turbinates present and moist oral mucous membranes Eye: COMMON NORMALS: EOMs intact bilaterally, conjunctivae normal and no scleral icterus Neck/C-Spine: COMMON NORMALS: no lymphadenopathy and no JVD Lymph: LYMPHATIC: no lymphadenopathy noted Chest: COMMONS NORMALS: normal palpation of entire chest wall CHEST: Yes Symmetrical chest wall rise Resp: COMMON NORMALS: normal respiratory effort and No use of accessory muscles AUSCULTATION: diminished lung sounds diffuse Cardio: COMMON NORMALS: no JVD, regular rate, regular rhythm, S1 normal heart sound present and S2 normal heart sound present GI: COMMON NORMALS: Normal to inspection, nondistended, normoactive bowel sounds present, Soft to palpation, non-tender and no bruits : COMMON NORMALS: Yes no CVA tenderness Back/Pelvis: COMMON NORMALS: no thoracic nor lumbar tenderness and thoraco-lumbar ROM normal Extremity: COMMON NORMALS: full ROM, capillary refill normal, no clubbing, cyanosis or edema, no calf tenderness and no pedal edema Neuro: COMMON NORMALS: patient oriented x3, CN's II-XII intact bilaterally and no focal motor deficits Psych: COMMON NORMALS: mental status grossly normal, Normal thought process present, cooperative and speech normal Skin: COMMON NORMALS: no rashes or lesions noted Data : 10/03/20 02:45 10/03/20 02:45 A&P Assessment and plan (1) Acute respiratory failure with hypoxia and hypercapnia: Status: Acute (2) COPD exacerbation: Status: Acute (3) Non-ST elevated myocardial infarction (non-STEMI): Status: Acute (4) Diabetes mellitus type 2 with neurological manifestations: Status: Acute (5) Tobacco use: Status: Acute Additional A&P Information Admit patient to the medical floor. Titrate oxygen Start scheduled DuoNeb, IV Solu-Medrol. Chest x-ray shows no infiltrate. Patient has no productive cough. No indication for antibiotics at this time. Respiratory therapy to evaluate and follow BiPAP as needed Continue to trend troponin We will treat for NSTEMI with full dose Lovenox, aspirin and Plavix. Obtain echocardiogram. Cardiology consult. Smoking cessation advised. Insulin sliding scale for glucose management. Attestations Medical Necessity Statement*: Patient presenting with acute respiratory failure secondary to COPD exacerbation. She needs to be hospitalized for further management. She is expected to spend more than 2 midnights. Coding Level of Care Code Acute Cutter Barrel Drum for Chg Fwd Exam Comprehensive Diagnoses Acute respiratory failure with hypoxia and hypercapnia J96.01; J96.02 COPD exacerbation J44.1 Non-ST elevated myocardial infarction (non-STEMI) I21.4 Diabetes mellitus type 2 with neurological manifestations E11.49 Tobacco use Z72.0
--- NOTE | 2020-10-02 23:05 | PC.NURSE ---
report received from MARIELA MCARTHUR and care transferred to MARIELA Bentley
[2020-10-02] MEDS: iohexol 350 mg/mL 100 mL Btl IV (23:29)
--- NOTE | 2020-10-02 23:48 | PC.NURSE ---
Patient received to floor via stretcher from ED. MARIELA Bentley at bedside. Assisted patient x2 from stretcher to bed. While attempting to begin assessment and get patient comfortable, patient started yelling and cussing this RN for not listening to her . I asked patient to not yell at me and this caused her to yell even more. Patient also started to yell at MARKETING PERFORMANCE ANALYST. Patient told this RN to get the hell out of her room and do not come back. Informed MARIELA Bradfordmanager transportation planning and Dr Miner. Dr Miner informed me to let her leave AMA if she decided not to stay. Assigned patient to 2nd RN on the floor.
[2020-10-03] VITALS (16 sets, daily range): BP systolic 93–155; BP diastolic 61–87; PULSE 63–114; RESP 16–27; TEMP 36.3–36.6; O2SAT 62–97
[2020-10-03] MEDS: famotidine 20 mg/2 mL INJ IVP ×2 (01:37→11:07)
--- NOTE | 2020-10-03 01:52 | PC.NURSE ---
Patient arrived to the floor at 0000. Patient very loud and biligerent with staff. Patient fired first nurse. This nurse went in to assess and do admission paperwork with patient. Patient got upset at question about visitor and our 1 visitor policy patient yelled, I want to leave this fucking place you all are not doing anything for me anyways. Patient was offered AMA paperwork which she declined and asked if boyfriend could visit from outside of building looking in through window. Patient was advised that yes he could come to window but only one visitor is allowed in building. Patient opted to wait on decision for visitor until she could talk to her daughter. Patient is very aggressive toward staff and demanding. Spoke with daughter on phone about patient current condition and let her know that we were still in observation status and testing patient to determine course of treatment.
--- NOTE | 2020-10-03 01:57 | PC.NURSE ---
Patient demanding to have her dose of Lyrica now. Unable to obtain complete med rec at this time due to patient's uncooperation and behavior. Informed Dr Miner of patient request and received onetime dose of Lyrica 200mg PO now.
--- NOTE | 2020-10-03 01:58 | PC.NURSE ---
0145 Call Light on, patient demands chocolate pudding. States I did not ask for fucking vanilla pudding, I will only eat chocolate Patient requests assistance using phone. When assisting her in dialing the number, it was found that she was attempting a long distance phone call and rooms can not call out long distance. I informed her that I'd be happy to call anyone one she requests and transfer the call to her room. She became very agitated and started yelling This [facility] is a fucking joke. You are treating me like I'm at a [facility] nursery. I asked that she stop swearing at me, and offered to return when she was ready to communicate. She stated Just get me my fucking pain medication. Dr. Miner notified of patient's demand for lyrica. Orders received and noted.
[2020-10-03] MEDS: pregabalin 100 mg Capsule 200 MG PO ×3 (02:13→20:22)
[2020-10-03 03:02] LABS: Basophils # 0.1 10^3/uL (0.0-0.1); Basophils % 0.6 %; Hematocrit 49.3 % (37.0-47.0); Hemoglobin 15.6 g/dL (11.5-15.3); Lymphocytes # 1.2 10^3/uL (0.8-4.8); Lymphocytes % 9.4 %; Mean Corpuscular HGB Conc 31.6 g/dL (30.0-36.0); Mean Corpuscular Volume 94.8 fL (81-99); Mean Platelet Volume 12.7 fL (7.4-10.4); Monocytes % 0.3 %; Neutrophils # 10.98 10^3/uL (1.8-7.7); Neutrophils % 89.3 %; Nucleated Red Blood Cells % 0 %; Platelet Count 166 10^3/cmm (130-400); Red Cell Distribution Width 12.2 % (12.1-15.1); White Blood Count 12.3 10^3/uL (4.0-10.0)
[2020-10-03 03:27] LABS: Anion Gap 14.2 (5-19); Blood Urea Nitrogen 12 mg/dL (8-23); Calcium 8.8 mg/dL (8.5-10.5); Carbon Dioxide 24 mmol/L (22-29); Chloride 103 mmol/L (98-107); Chol HDL Ratio 7.08 mg/dL (0.0-4.40); Cholesterol 184 mg/dL (0-200); Glomerular Filtration Rate 84.8 mL/min (90-130); Glucose 266 mg/dL (65-115); HDL Cholesterol 26 mg/dL (60-100); LDL Cholesterol Calculated 103 mg/dL (50-129); LDL HDL Ratio 3.96 RATIO (0.00-3.22); Magnesium 1.8 mg/dL (1.7-2.3); Osmolality Calculated 293 mOsm/kg (285-295); Potassium 4.2 mmol/L (3.5-5.1); Sodium 137 mmol/L (136-145); Thyroid Stimulating Hormone 0.23 uIU/mL (0.27-4.20); Triglycerides 274 mg/dL (0-150)
[2020-10-03 03:44] LABS: Troponin 5 6HR Delta 152 ng/L (0-12)
--- NOTE | 2020-10-03 03:51 | PC.NURSE ---
0350 Order clarified and physician ordered every 6 hrs.
--- NOTE | 2020-10-03 05:10 | PC.NURSE ---
Patient refused v/s. RN notified.
--- NOTE | 2020-10-03 05:11 | PC.NURSE ---
0500 Patient refused AM vitals. SPO2 90-92 on RA. Frequently takes Oxygen off and reapplies.
[2020-10-03] MEDS: ipratropium-albuterol 3 mL Neb INHALATION ×4 (07:54→20:25)
[2020-10-03] MEDS: aspirin 81 mg EC Tablet PO (08:23)
[2020-10-03] MEDS: acetaminophen 325 mg Tablet 650 MG PO (08:23)
[2020-10-03] MEDS: duloxetine 60 mg Capsule PO ×2 (08:23→17:26)
[2020-10-03] MEDS: clopidogrel 75 mg Tablet PO (08:23)
[2020-10-03 08:34] LABS: Glucose Point of Care 281 mg/dL (70-110)
--- NOTE | 2020-10-03 09:37 | PC.CHAP ---
Pastoral Care Encounter/Spiritual Assessment Type of Contact [] Declined dipper fish visit [] Patient/Family/Request visit [] Outpatient visit [] Follow-up visit [] Physician referral [] Code/Alert [x] Routine visit [] Staff referral [] Actively dying [] Patient sleeping [] Family support [] [] Out of room [] Palliative care [] [] Receiving care in room [] Pre-surgical visit [] Trauma [] Long length of stay [] ICU visit [] Other: Relational/Emotional Strength [] Patient feels connected with others/family/visitors/staff [] Distress [] Loneliness/isolation [] Abandonment Spirituality of Patient [] Person of Shira [] Attends Evangelical of their Shira [] Believes in Prayer [] Reads Bible or Pentecostal materials [] There are Spiritual issues to be addressed Ceramic Engineer Interventions [x] Prayer [] Active listening [] Non-anxious presence [] Spiritual/emotional support [] Crisis/trauma care [] Spiritual counseling [] Bereavement support [] Provided bereavement packet [] Provided Bible/devotional materials [] Provided toy/stuffed animal, coloring book to patient or family member [] Provided Communion [] Anointing/[place] [] Salvation [x] Completed spiritual assessment [] Other: Impact on Illness or Injury [] Angry [] Fearful [] Anxious [] Often cries [] Exhaustion [] Unable to work [] Unable to attend amish [] Unable to walk/stand [] Unable to read [] Unable to drive [] Unable to eat/drink [] Unable to sleep [] Unable to be with family [] Patient intubated [] Other: Summary Time spent with patient
[2020-10-03] MEDS: enoxaparin 80 mg/0.8 mL Syringe SUBCUT ×2 (11:07→23:05)
[2020-10-03 11:27] LABS: Glucose Point of Care 303 mg/dL (70-110)
--- NOTE | 2020-10-03 12:08 | PC.NURSE ---
Patient hollering out door way for some one to help her this nurse entered room patient asked what i could do for her; patient yelled you can get me my damn lyaltona now my feet are hurting really bad explained to patient the doctor has been notified about her needing her medications we are awaiting the doctor to place the order for her to have the medications. Patient continued yelling at this nurse get the tuyet doctor in here now or I am walking out of here I came here for help I can go home and take my pain medications and lay not in pain at my home. This nurse attempted to calmly explain to patient that her nurse was working with the doctor. Patient yelled at this nurse I need to talk to my daughter now you are not helping me I need help patient yelled to this nurse tell that bitch to get in here now or I am walking out of here This nurse let patient know I would contact her daughter Phone placed in reach. Daughter Faby contacted and transferred to patient room
--- NOTE | 2020-10-03 12:25 | PC.NURSE ---
called doctor Called Doctor via phone and regarding pt's complains of pain on her legs. Discuss to doctor regarding pt has received a one time order for Lyrica and per med reconciliation pt has been taking Lyrica at home. Dr. Ferrer will come down and see patient in an hour. Informed pt.
--- NOTE | 2020-10-03 12:45 | PC.NURSE ---
Physician at bedside 1245pm- Doctor came in at beside at this time. Pt is on her phone talking to her daughter Faby when we rounded on her. Doctor has an extensive discussion regarding the pt's course of hospitalization, goals and treatment to the pt as well as to her dgtr via bedside telephone. Dgtr Faby and patient verbalizes understanding on pt's cardiology consultation today.
--- NOTE | 2020-10-03 12:50 | PC.NURSE ---
Pt refused morphine sulfate.
[2020-10-03] MEDS: carvedilol 3.125 mg Tablet PO (12:59)
--- NOTE | 2020-10-03 13:06 | USCV_ITS ---
Kristel Hernandez Age: 60 Gender: F : 1960 Exam Date: 10/03/2020 14:23 Ordering Phys: Saba Ferrer MD Technologist: Suhas Zavala Exam Location: [facility] [place] Indication: SYNCOPE BP: 155 / HR: 94 Rhythm: Sinus Technical Quality: ADEQUATE MEASUREMENTS (Male / Female) Normal Values 2D ECHO LV Diastolic Diameter PLAX 4.0 cm 4.2 - 5.9 / 3.9 - 5.3 cm LV Systolic Diameter PLAX 2.4 cm IVS Diastolic Thickness 0.9 cm 0.6 - 1.0 / 0.6 - 0.9 cm IVS Systolic Thickness 1.3 cm LVPW Diastolic Thickness 1.0 cm 0.6 - 1.0 / 0.6 - 0.9 cm LVPW Systolic Thickness 1.1 cm LVOT Diameter 2.1 cm LV Ejection Fraction 2D Teich 69.5 % LV Ejection Fraction MOD 2C 71.7 % LV Ejection Fraction 2C AL 72.2 % LA Diameter 2.9 cm LA Width 3.3 cm LA Height 4.7 cm RA Width 4.4 cm RA Height 3.3 cm M-MODE LV Diastolic Diameter MM 3.8 cm 4.2 - 5.9 / 3.9 - 5.3 cm LV Systolic Diameter MM 2.4 cm LV Ejection Fraction MM Teich 66.8 % IVS Diastolic Thickness MM 1.0 cm 0.6 - 1.0 / 0.6 - 0.9 cm IVS Systolic Thickness MM 1.3 cm LVPW Diastolic Thickness MM 1.0 cm 0.6 - 1.0 / 0.6 - 0.9 cm LVPW Systolic Thickness MM 1.4 cm RV Diastolic Diameter MM 1.5 cm Aortic Annulus Diameter 3.1 cm LA Ao Ratio MM 1.0 MV E Point Septal Separation 0.8 cm DOPPLER AV Peak Velocity 163.0 cm/s LVOT Peak Velocity 122.0 cm/s AV Area Cont Eq vti 2.8 cm squared AV Area Cont Eq pk 2.5 cm squared MV Area PHT 5.0 cm squared Mitral E to A Ratio 0.8 MV E' Velocity 50.0 cm/s Mitral E to MV E' Ratio 10.6 Mitral E to LV E' Lateral Ratio 11.1 Mitral E to LV E' Septal Ratio 10.2 TR Peak Velocity 267.0 cm/s TR Peak Gradient 28.5 mmHg TV Peak E Velocity 88.0 cm/s Right Atrial Pressure 3.0 mmHg Pulmonary Artery Systolic Pressu 31.5 mmHg PV Peak Velocity 121.0 cm/s FINDINGS Left Ventricle Mild diffuse hypokinesia of the LV apex. Ejection fraction around 55%. Right Ventricle The right ventricle is normal in size and function. Right Atrium The right atrium is normal in size. Left Atrium The left atrium is normal in size. Mitral Valve Thickened mitral valve. Aortic Valve Thickened aortic valve. Tricuspid Valve No gross abnormalities noted Pulmonic Valve Pulmonic valve not well visualized. Pericardium Normal pericardium without effusion. Aorta Normal ascending aorta dimension. CONCLUSIONS Mild diffuse hypokinesia of the LV apex. Ejection fraction around 55%. Thickened aortic and mitral valves. There is no pericardial effusion. There are no intracardiac masses. Comparison with the previous study is difficult because of the difference in the technical quality. No previous study is available for comparison. Dr Jayce Waters MD FACC (Electronically Signed) Final Date: 03 October 2020 16:39 S
--- NOTE | 2020-10-03 13:30 | PM.PN ---
Subjective Subjective: Interval history: Complains of neuropathic pain in bilateral lower extremities after which her Lyrica has been resumed, also complains of both left and right-sided chest discomfort now. And specifically asked reports that over the past week she has had central chest pain not particularly associated with any activity, lasting few minutes at a time. Troponin delta significant with 122 1 150s high at 2 and 6-hour. Medications: Reviewed: Yes Vitals/I&O/Wt Last Vital Signs Temp 97.8 F 10/03/20 10:57 Pulse 108 H 10/03/20 11:19 Resp 20 H 10/03/20 11:15 BP 155/82 10/03/20 10:57 Pulse Ox 95 10/03/20 11:15 10/02/20 10/03/20 10/03/20 22:59 06:59 14:59 Intake Total 120 / 120 240 / 240 Balance 120 / 120 240 / 240 Weight last 48 hrs Weight 81.647 kg Physical Exam Narrative: EXAM NARRATIVE: GEN: Awake, alert and oriented, no acute distress CVS: S1S2 N RS: CTA B/L Abd: Soft, nt/nd , bs+ [employer]: no focal neuro deficits Data : 10/03/20 02:45 10/03/20 02:45 A&P Assessment and plan (1) Non-ST elevated myocardial infarction (non-STEMI): Currently patient is on aspirin 81 mg p.o. daily, overnight was also given Plavix 300 mg and has been started on Plavix 75 mg daily overnight. Currently also on full dose Lovenox twice daily for NSTEMI. Significant troponin delta's of 122 and 155 respectively. Complains of both left and right-sided chest pain at this present time. Hemodynamically she is currently stable. Cardiology consult to assess for angiogram. Echocardiogram has been ordered this afternoon. No current signs of decompensated heart failure. BNP is negative, chest x-ray does not show signs of pulmonary edema, no noted edema or JVD. Resume home dose of carvedilol 3.125 mg p.o. twice daily. Status: Acute (2) Acute respiratory failure with hypoxia and hypercapnia: Patient reports a history of recurrent bronchitis every 3 to 4 months, she has had PFTs in the past but does not with the results. I suspect she may have underlying COPD. Also possible that the shortness of breath she is describing over the past year may be cardiac in nature. PFTs to be recommended as outpatient. ABG overnight with 7.34, 52, 120, 27.9. Was on methylprednisolone 60 mg IV every 6 hours, changed to prednisone 40 mg p.o. daily. No wheezing on exam currently Continue DuoNeb scheduled every 6 hours, add budesonide. Check Covid rapid antigen. Status: Acute (3) COPD exacerbation: Management as above Status: Acute (4) Diabetes mellitus type 2 with neurological manifestations: Unknown last A1c. Currently on insulin sliding scale Status: Acute (5) Tobacco use: Start nicotine patch Status: Acute (6) Peripheral neuropathy: Resume home dose of Lyrica and duloxetine Status: Acute Qualifiers: Peripheral neuropathy type: polyneuropathy, unspecified Qualified Code(s): G62.9 - Polyneuropathy, unspecified Attestations Medical Necessity Statement*: NSTEMI, cardiology consult, ongoing need for anticoagulation and antiplatelets, optimization of respiratory status for COPD exacerbation. Coding Level of Care Code Acute [employer] [facility] Fwd Diagnoses Non-ST elevated myocardial infarction (non-STEMI) I21.4 Acute respiratory failure with hypoxia and hypercapnia J96.01; J96.02 COPD exacerbation J44.1 Diabetes mellitus type 2 with neurological manifestations E11.49 Tobacco use Z72.0 Peripheral neuropathy G62.9 Peripheral neuropathy type: polyneuropathy, unspecified
[2020-10-03] MEDS: nicotine 21 mg Patch 1 PATCH TRANSDERMA (13:45)
[2020-10-03] MEDS: atorvastatin 40 mg Tablet PO (13:45)
[2020-10-03] MEDS: ALPRAZolam 0.25 mg Tablet PO (13:45)
--- NOTE | 2020-10-03 14:00 | PC.NURSE ---
Pt refused to put a Epperson catheter in her Informed pt regarding order for epperson catheter. Pt refused and stated, I don't want that. Discuss to pt if she wants us to give her Xanax to help with her nervousness since she told doctor she is anxious. She is okay for me to give it to her.
[2020-10-03 15:31] LABS: Glucose Point of Care 309 mg/dL (70-110)
--- NOTE | 2020-10-03 15:32 | PC.NURSE ---
Pt is resting and sleeping at this time Visitor nilda at bedside.
[2020-10-03 16:48] LABS: Glucose Point of Care 267 mg/dL (70-110)
--- NOTE | 2020-10-03 17:02 | PC.NURSE ---
asked pt if she needs to go to bathroom she said no shes fine
--- NOTE | 2020-10-03 17:03 | PC.NURSE ---
asked pt if she needed to go to bathroom she says not yet asked if she was wet she stated no
--- NOTE | 2020-10-03 17:04 | PC.NURSE ---
asked pt if she needed to go to bathroom she stated no not yet asked if she needed changed she stated not omar that she was dry
--- NOTE | 2020-10-03 17:07 | PC.NURSE ---
asked pt if she whated to use the bathroom she said not at this time and that she was dry
--- NOTE | 2020-10-03 17:33 | PC.NURSE ---
sked pt if she needed to go to bathroom she said nope not yet and asked if she was wet she said no
--- NOTE | 2020-10-03 17:51 | P.CONIM_ITS ---
Providers/Reason For Consult Consulting Physican/Specialty*: RICARDO Waters MD/cardiology Reason for Consult*: Patient with atypical chest pain/negative troponin T/Hartness of breath Attending Physician: Saba Ferrer MD Primary Care Provider: Lilliam Walter DO History of Present Illness History of Present Illness Kristel Hernandze is a 60 year old female with a history of hypertension, type 2 diabetes, dyslipidemia, strong family history for premature atherosclerotic heart disease, presenting with a cough and shortness of breath for the last 2 days. This morning, her shortness of breath has gotten worse and she was finding it difficult to talk. For this reason, she was brought to the emergency room by ambulance. After the breathing treatment, her shortness of breath started improving. She still has significant hoarseness of voice and some amount of tachypnea. But she is able to give a history. She also has been experiencing some tight feeling in the chest intermittently for the last several months. This may last for anywhere from few seconds to few minutes. It s ubsided spontaneously. Usually associated with shortness of breath. These episodes seems to be getting more often lately. This patient has a strong family history for premature atherosclerotic heart disease. She has 11 siblings and most of them of heart attack. Most of them had a heart attacks in the 40s and 50s. Her mother, grandmother, maternal uncles and aunts all had heart problems. She also has a history of heavy smoking abuse, smoked 2 to 3 pack a day for the last 45 years or so. She is now using Chantix, trying to quit. She has been having episodes of chest tightness/shortness of breath for the last several months. According to her, the tight feeling in the chest usually last for few seconds but this morning it may last for several hours. After the breathing treatment, she got somewhat better. Currently she is complaining of soreness in the chest wall. She did not have any fever or chills. She has no abdominal pain or dysuria. She has no previous history for coronary artery disease, myocardial infarction or congestive heart failure. No history for severe peripheral artery disease. She is known to have diabetic neuropathy bilaterally. No other specific complaints. Review of Systems Narrative: CONSTITUTIONAL: No fever or chills. EYES: No blurring of vision or other visual disturbances lately. ENT: No hoarseness of voice, auditory disturbances or sore throat. CARDIOVASCULAR: As mentioned above. RESPIRATORY: Shortness of breath and chest tightness as mentioned above GASTROINTESTINAL: No hematemesis or melena. GENITOURINARY: No dysuria or hematuria. INTEGUMENTARY: No skin rashes or history of skin cancer. NEURO: History of diabetic neuropathy PSYCHIATRIC: No history of psychosis or major depression. HEMATOLOGIC: No bleeding disorders or significant anemia. ENDOCRINE: Type 2 diabetes as mentioned above MUSCULOSKELETAL: No recent joint pain or swelling. ALLERGY/IMMUNOLOGY: As mentioned above. Meds/Allergies Home Medications and Allergies Home Medications Medication Instructions Recorded Confirmed Last Taken Type cholecalciferol (vitamin D3) 25 25 mcg PO DAILY 03/23/20 10/03/20 Unknown History mcg (1,000 unit) capsule cyanocobalamin (vitamin B-12) 5,000 mcg SUBLINGUAL DAILY 03/23/20 10/03/20 Unknown History 5,000 mcg sublingual tablet multivitamin 1 cap PO DAILY 03/23/20 10/03/20 Unknown History duloxetine 60 mg capsule,delayed 60 mg PO BID #4 cap 04/06/20 10/03/20 1 Day Ago Rx release ~10/02/20 60 mg pregabalin 200 mg capsule 200 mg PO TID #6 cap 04/06/20 10/03/20 1 Day Ago Rx ~10/02/20 200 mg varenicline 0.5 mg (11)-1 mg (42) See Rx Instructions PO PER PKG DIR 05/10/20 10/03/20 Unknown Rx tablets in a dose pack #53 each albuterol sulfate 2 inh INHALATION Q4H PRN #6.7 gm 05/27/20 10/03/20 Unknown Rx alendronate 70 mg tablet 70 mg PO .once weekly #12 tab 06/07/20 10/03/20 Unknown Rx atorvastatin 20 mg tablet 20 mg PO DAILY #30 tab 06/20/20 10/03/20 Unknown Rx meloxicam 15 mg tablet 15 mg PO DAILY #30 tab 06/20/20 10/03/20 Unknown Rx liraglutide 0.6 mg/0.1 mL (18 mg/3 See Rx Instructions SUBCUT 07/20/20 10/03/20 2 Days Ago Rx mL) subcutaneous pen injector .COMPLEX #6 ml ~10/01/20 0.6mg/0.1ml carvedilol 3.125 mg tablet 3.125 mg PO BID #60 tab 08/08/20 10/03/20 1 Day Ago Rx ~10/02/20 3.125mg losartan 25 mg tablet 25 mg PO DAILY #30 tab 10/03/20 Unknown Rx Allergies Allergy/AdvReac Type Severity Reaction Status Date / Time adhesive tape Allergy ALGY-Rash Verified 06/22/20 14:27 penicillin G benethamine Allergy ALGY-Swell Verified 06/22/20 14:27 [benethamine penicillin] Lip/Tongue/Throat Current Medications Current Medications Generic Name Dose Route Start Last Admin Trade Name Freq PRN Reason Stop Dose Admin Acetaminophen 650 mg 10/02/20 23:18 10/03/20 08:23 Acetaminophen 325 Mg Tablet PO 650 mg Q6H PRN Administration Mild/Mod Pain Or Temp >/= 101 Albuterol/Ipratropium 3 ml 10/03/20 08:00 10/03/20 15:44 Ipratropium-Albuterol 3 Ml Neb INHALATION 3 ml QID.RESPIRATORY MARY Administration Alprazolam 0.25 mg 10/03/20 13:19 10/03/20 13:45 Alprazolam 0.25 Mg Tablet PO 0.25 mg TID PRN Administration ANXIETY Aspirin 81 mg 10/03/20 09:00 10/03/20 08:23 Aspirin 81 Mg Ec Tablet PO 81 mg DAILY MARY Administration Atorvastatin Calcium 40 mg 10/03/20 14:00 10/03/20 13:45 Atorvastatin 40 Mg Tablet PO 40 mg DAILY MARY Administration Carvedilol 3.125 mg 10/03/20 13:00 10/03/20 12:59 Carvedilol 3.125 Mg Tablet PO 3.125 mg 0900,2100 MARY Administration Clopidogrel Bisulfate 75 mg 10/03/20 09:00 10/03/20 08:23 Clopidogrel 75 Mg Tablet PO 75 mg DAILY MARY Administration Duloxetine HCl 60 mg 10/03/20 09:00 10/03/20 17:26 Duloxetine 60 Mg Capsule PO 60 mg BID MARY Administration Enoxaparin Sodium 80 mg 10/02/20 23:18 10/03/20 11:07 Enoxaparin 80 Mg/0.8 Ml Syringe SUBCUT 80 mg Q12H MARY Administration Insulin Aspart 0 unit 10/03/20 08:00 10/03/20 17:26 Insulin Aspart 100 Unit/1 Ml SUBCUT 10 unit WM&BEDTIME MARY Administration Protocol Nicotine 1 patch 10/03/20 13:30 10/03/20 13:45 Nicotine 21 Mg Patch TRANSDERMA 1 patch DAILY MARY Administration Pregabalin 200 mg 10/03/20 13:00 10/03/20 13:00 Pregabalin 100 Mg Capsule PO 200 mg TID MARY Administration PFSH Acute PFSH: Medical History Depression Diabetes mellitus type 2 with neurological manifestations Diabetic neuropathy Essential hypertension Hyperhidrosis Hyperlipidemia Surgical menopause Surgical History H/O: hysterectomy History of appendectomy History of bladder surgery Hx of cholecystectomy Family History (Updated 10/03/20 @ 18:11 by Jayce Waters MD) Mother CAD (coronary artery disease) Stroke Grandfather Cancer mouth Sister Cancer skin Brother CAD (coronary artery disease) She has 11 siblings. 2 of her brothers had myocardial infarction in their late 40s. Sister COPD (chronic obstructive pulmonary disease) Social History Smoking and tobacco status: current every day smoker cigarettes Packs smoked per day: 1.5 Quit status (tobacco): considering quitting Alcohol intake: current Alcohol intake frequency: holidays/special occasions only Vitals/I&O/Wt Last Vital Signs Temp 97.8 F 10/03/20 10:57 Pulse 83 10/03/20 15:45 Resp 18 10/03/20 15:45 BP 93/61 10/03/20 15:27 Pulse Ox 93 10/03/20 15:45 10/03/20 10/03/20 10/03/20 06:59 14:59 22:59 Intake Total 120 / 120 240 / 240 360 / 600 Balance 120 / 120 240 / 240 360 / 600 Weight last 48 hrs Weight 180 lb Physical Exam Narrative: EXAM NARRATIVE: GENERAL: The patient is alert and oriented times three. Not in any acute distress. Morbidly obese. Short stature. HEENT: No significant pallor, icterus or lymphadenopathy. The pupils are reactant to light. Oral cavity: There are no mucous membrane lesions. Funduscopic examination: Fundus is not visualized NECK: Trachea appears to be central. No masses noted. No JVD or thyromegaly appreciated. No carotid bruit. [] RESPIRATORY: Chest is symmetrical. No intercostals muscle retraction or any accessory muscle activation. There is no chest wall tenderness. Breath sounds are heard bilaterally. No rales or rhonchi heard. No evidence of any consolidation. [] BREASTS: Deferred. [] HEART: The PMI could not be palpated. First and second heart sounds are normal. No S3. S4 present. No significant murmurs. ABDOMEN: Abdomen is obese nontender no organomegaly. Bowel sounds are normally heard. : Deferred. [] RECTAL: Deferred. [] LYMPHATIC: No lymphadenopathy noted in the neck or groin. [] EXTREMITIES: No edema or cyanosis. No clubbing. The pulses are symmetrical bilaterally. The radial, femoral, dorsalis pedis and the posterior tibial pulses are palpated and found to be in good volume and amplitude. [] MUSCULOSKELETAL: No acute joint deformities or swelling SKIN: There are no significant scars or skin rash noted. [] NEUROPSYCHIATRIC: The patient is alert and oriented x3. Appears to be in a good mood. The higher functions are grossly within normal limits. No tremors or rigidity noted. [] Data Labs: Other Labs: Laboratory Last Values WBC 12.3 10^3/uL (4.0 -10.0) H 10/03/20 02:45 RBC 5.20 10^6/uL (4.1 -5.3) 10/03/20 02:45 Hgb 15.6 g/dL (11.5-1 5.3) H 10/03/20 02:45 Hct 49.3 % (37.0-47.0 ) H 10/03/20 02:45 MCV 94.8 fL (81-99) 10/03/20 02:45 MCH 30.0 pg (28.0-34. 0) 10/03/20 02:45 MCHC 31.6 g/dL (30.0-3 6.0) 10/03/20 02:45 RDW 12.2 % (12.1-15.1 ) 10/03/20 02:45 Plt Count 166 10^3/cmm (130 -400) 10/03/20 02:45 MPV 12.7 fL (7.4-10.4 ) H 10/03/20 02:45 Neut % (Auto) 89.3 % 10/03/20 02:45 Lymph % (Auto) 9.4 % 10/03/20 02:45 [place] % (Auto) 0.3 % 10/03/20 02:45 Eos % (Auto) 0.0 % 10/03/20 02:45 Baso % (Auto) 0.6 % 10/03/20 02:45 Neut # (Auto) 10.98 10^3/uL (1. 8-7.7) H 10/03/20 02:45 Lymph # (Auto) 1.2 10^3/uL (0.8- 4.8) 10/03/20 02:45 [place] # (Auto) 0.0 10^3/uL (0.2- 0.9) L 10/03/20 02:45 Eos # (Auto) 0.0 10^3/uL (0.0- 0.8) 10/03/20 02:45 Baso # (Auto) 0.1 10^3/uL (0.0- 0.1) 10/03/20 02:45 Nucleated RBC % (a uto) 0 % 10/03/20 02:45 Nucleated RBCs # 0.0 /100WBC 10/03/20 02:45 PT 13.00 SECONDS (12 .1-14.9) 10/02/20 18:05 INR 0.96 (0.8-1.2) 10/02/20 18:05 Specimen Type Arterial 10/02/20 21:10 Sample Site Radial, right 10/02/20 21:10 ABG pH 7.34 (7.35-7.45) L 10/02/20 21:10 ABG pCO2 52.0 mmHg (35-45) H 10/02/20 21:10 ABG pO2 120.0 mmHg (80.0- 100.0) H 10/02/20 21:10 ABG HCO3 27.9 mmol/L (22-2 6) H 10/02/20 21:10 ABG Base Excess 0.9 mmol/L (-2.0- 2.0) 10/02/20 21:10 Chucky Test Pos 10/02/20 21:10 Hematocrit 48.9 % (37-47) H 10/02/20 21:10 Hgb O2 Saturation 89.9 % (95-100) L 10/02/20 17:58 Carboxyhemoglobin 5.5 %THgb (0.4-20 .1) 10/02/20 17:58 Methemoglobin 0.8 % (0.4-1.5) 10/02/20 17:58 Total Hemoglobin 16.6 g/dL (12-16) H 10/02/20 17:58 O2 Delivery Device Bipap 10/02/20 21:10 O2 Liters/Min 5.0 % 10/02/20 17:58 FiO2 35.0 % 10/02/20 21:10 Temper Mill Operator ID [email or web address] 10/02/20 21:10 Sodium 137 mmol/L (136-1 45) 10/03/20 02:45 Potassium 4.2 mmol/L (3.5-5 .1) 10/03/20 02:45 Chloride 103 mmol/L (98-10 7) 10/03/20 02:45 Carbon Dioxide 24 mmol/L (22-29) 10/03/20 02:45 Anion Gap 14.2 (5-19) 10/03/20 02:45 BUN 12 mg/dL (8-23) 10/03/20 02:45 Creatinine 0.7 mg/dL (0.5-0. 9) 10/03/20 02:45 GFR Calculation 84.8 mL/min (90-1 30) L 10/03/20 02:45 Glucose 266 mg/dL (65-115 ) H 10/03/20 02:45 POC Glucose 267 mg/dL (70-110 ) H 10/03/20 16:38 Calculated Osmolal ity 293 mOsm/kg (285- 295) 10/03/20 02:45 Calcium 8.8 mg/dL (8.5-10 .5) 10/03/20 02:45 Magnesium 1.8 mg/dL (1.7-2. 3) 10/03/20 02:45 Total Bilirubin 0.2 mg/dL (0.15-1 .2) 10/02/20 18:05 AST 42 U/L (0-32) H 10/02/20 18:05 ALT 34 U/L (0-33) H 10/02/20 18:05 Alkaline Phosphata se 106 IU/L (35-105) H 10/02/20 18:05 Troponin T Baselin e 20 ng/L (0-10) H 10/02/20 18:05 Troponin T 120 Min pradeep 142.9 ng/L (0-10) H 10/02/20 20:25 Delta Troponin T 122.9 ABS# (0-10) H* 10/02/20 20:25 Troponin T Hi Sens 6Hr 172.0 ng/L (0-10) H 10/03/20 02:45 Troponin T Hi Sens 6Hr Delta 152 ng/L (0-12) H* 10/03/20 02:45 NT-Pro-B Natriuret Pep 90 pg/mL (0-125) 10/02/20 18:05 Total Protein 6.9 g/dL (6.6-8.7 ) 10/02/20 18:05 Albumin 4.1 g/dL (3.5-5.2 ) 10/02/20 18:05 Globulin 2.8 g/dL (1.3-4.6 ) 10/02/20 18:05 Triglycerides 274 mg/dL (0-150) H 10/03/20 02:45 Cholesterol 184 mg/dL (0-200) 10/03/20 02:45 LDL Cholesterol, C alc 103 mg/dL (50-129 ) 10/03/20 02:45 HDL Cholesterol 26 mg/dL (60-100) L 10/03/20 02:45 LDL/HDL Ratio 3.96 RATIO (0.00- 3.22) H 10/03/20 02:45 Cholesterol/HDL Ra domitila 7.08 mg/dL (0.0-4 .40) H 10/03/20 02:45 TSH 0.23 uIU/mL (0.27 -4.20) L 10/03/20 02:45 Imaging^: Echo: My impression: Mild diffuse hypokinesia of the LV apex. Ejection fraction around 55%. Thickened aortic and mitral valves. There is no pericardial effusion. There are no intracardiac masses. Comparison with the previous study is difficult because of the difference in the technical quality. No previous study is available for comparison. CTA Chest: My impression: 1. There is no evidence for pulmonary emboli. 2. 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 There is no evidence for dissection or extravasation. 3. Minimal right basilar atelectasis versus parenchymal pleural scarring. 4. Fatty infiltration the liver EKG^: EKG 1: My Interpretation: Sinus tachycardia with a rate of 114 bpm. Left axis deviation. Nonspecific ST-T changes. Poor R wave progression. Possible old septal CA. Possible left atrial enlargement. A&P Assessment and plan (1) Non-ST elevated myocardial infarction (non-STEMI): Patient is a clinical features are consistent with non-ST relation myocardial infarction. She may be treated with subcu Lovenox, aspirin, beta- valery, Plavix and statin. Echocardiogram was reviewed. She has mild hypokinesia of the LV apex. She may resume cardiac catheterization, to further evaluate the coronary status and decide on further management. This may be performed once the respiratory status is stable. Because of the COPD exacerbation, I may discontinue the carvedilol and start her on metoprolol 25 mg p.o. twice daily Status: Acute (2) COPD exacerbation: Management as per the primary. Status: Acute (3) Hyperlipidemia: Status: Acute Qualifiers: Hyperlipidemia type: mixed hyperlipidemia Qualified Code(s): E78.2 - Mixed hyperlipidemia (4) Essential hypertension: May continue on the Lipitor. We will try to optimize the antihypertensive medications. Status: Acute (5) Diabetes mellitus type 2 with neurological manifestations: Her blood sugar needs to be aggressively managed. Status: Acute Additional A&P Information Based on the patient's clinical progress and the results of the above, further recommendations will be made. Thank you for the opportunity to evaluate this patient and make this recommendation Consult Attestations Medical Necessity Statement: Patient requires continued hospital stay for close monitoring and further management Coding Level of Care Code Acute Central Sterile Supply Technician for g Fwd History Detailed Exam Detailed Medical Decision Making High Complexity Diagnoses Non-ST elevated myocardial infarction (non-STEMI) I21.4 COPD exacerbation J44.1 Hyperlipidemia E78.2 Hyperlipidemia type: mixed hyperlipidemia Essential hypertension I10 Diabetes mellitus type 2 with neurological manifestations E11.49 Time Spent (min) 60
[2020-10-03 18:08] LABS: SARS Covid-2 Antigen Negative (Negative)
--- NOTE | 2020-10-03 19:38 | PC.RESP ---
Smoking Cessation and Pulmonary Rehab information sent to patient.
[2020-10-03] MEDS: metoprolol tartrate 25 mg Tablet PO (20:22)
[2020-10-03] MEDS: budesonide 0.5 mg/2 mL Neb INHALATION (20:25)
[2020-10-03 20:39] LABS: Glucose Point of Care 274 mg/dL (70-110)
--- NOTE | 2020-10-03 23:20 | PC.NURSE ---
PT IS RESTING IN BED. PT C/O RIGHT LEG/FOOT PAIN THEN BILATERAL LEG/FOOT PAIN. SCHEDULED LYRICA WAS GIVEN. PT DENIES PAIN AT THIS TIME. WILL CONTINUE TO MONITOR.
[2020-10-04] VITALS (17 sets, daily range): BP systolic 96–152; BP diastolic 52–83; PULSE 62–78; RESP 16–24; TEMP 36.6–36.9; O2SAT 17–97
[2020-10-04] MEDS: morphine 4 mg/mL SDV 1 mL 2 MG IVP ×2 (01:52→14:41)
[2020-10-04 05:01] LABS: Basophils % 0.2 %; Hematocrit 44.7 % (37.0-47.0); Hemoglobin 14.2 g/dL (11.5-15.3); Lymphocytes % 11.7 %; Mean Corpuscular HGB Conc 31.8 g/dL (30.0-36.0); Mean Corpuscular Hemoglobin 30.3 pg (28.0-34.0); Mean Corpuscular Volume 95.3 fL (81-99); Mean Platelet Volume 13.3 fL (7.4-10.4); Neutrophils # 13.62 10^3/uL (1.8-7.7); Neutrophils % 81.5 %; Nucleated Red Blood Cells % 0 %; Platelet Count 174 10^3/cmm (130-400); Red Blood Count 4.69 10^6/uL (4.1-5.3); Red Cell Distribution Width 12.2 % (12.1-15.1); White Blood Count 16.7 10^3/uL (4.0-10.0)
[2020-10-04 05:26] LABS: Alanine Aminotransferase 34 U/L (0-33); Albumin Level 3.8 g/dL (3.5-5.2); Alkaline Phosphatase 69 IU/L (35-105); Anion Gap 11.9 (5-19); Aspartate Amino Transferase 35 U/L (0-32); Blood Urea Nitrogen 17 mg/dL (8-23); Calcium 8.9 mg/dL (8.5-10.5); Carbon Dioxide 27 mmol/L (22-29); Chloride 104 mmol/L (98-107); Globulin 2.8 g/dL (1.3-4.6); Glomerular Filtration Rate 84.8 mL/min (90-130); Glucose 165 mg/dL (65-115); Osmolality Calculated 293 mOsm/kg (285-295); Potassium 3.9 mmol/L (3.5-5.1); Sodium 139 mmol/L (136-145); Total Bilirubin 0.3 mg/dL (0.15-1.2); Total Protein 6.6 g/dL (6.6-8.7)
--- NOTE | 2020-10-04 06:21 | PC.NURSE ---
PT HAD C/O FOOT PAIN DURING THE NIGHT. RN GAVE MORPHINE IVP. PT STATED THAT HELPED. WILL CONTINUE TO MONITOR.
[2020-10-04 06:51] LABS: Glucose Point of Care 174 mg/dL (70-110)
[2020-10-04 07:09] LABS: Estmated Average Glucose 209; Hemoglobin A1C 8.9 % (4.0-6.0)
[2020-10-04 07:16] LABS: Free T4 Free Thyroxine 0.99 ng/dL (0.82-1.77); T3 Free 2.5 PG/ML (2.0-4.4)
--- NOTE | 2020-10-04 07:22 | PC.NURSE ---
asked pt if she needed to use bathroom she said no and shes not wet
[2020-10-04] MEDS: aspirin 81 mg EC Tablet PO (08:13)
[2020-10-04] MEDS: metoprolol tartrate 25 mg Tablet PO ×2 (08:13→21:45)
[2020-10-04] MEDS: pregabalin 100 mg Capsule 200 MG PO ×3 (08:13→21:45)
[2020-10-04] MEDS: atorvastatin 40 mg Tablet PO (08:13)
[2020-10-04] MEDS: predniSONE 20 mg Tablet 40 MG PO (08:14)
[2020-10-04] MEDS: nicotine 21 mg Patch 1 PATCH TRANSDERMA (08:15)
[2020-10-04] MEDS: pantoprazole DR 40 mg Tablet PO (08:15)
[2020-10-04] MEDS: duloxetine 60 mg Capsule PO ×2 (08:15→17:20)
[2020-10-04] MEDS: budesonide 0.5 mg/2 mL Neb INHALATION ×2 (08:24→20:54)
[2020-10-04] MEDS: ipratropium-albuterol 3 mL Neb INHALATION ×4 (08:24→20:54)
--- NOTE | 2020-10-04 08:35 | PC.NURSE ---
asked pt if she needed to use bathroom she said no and she isnt wet
--- NOTE | 2020-10-04 09:28 | PC.NURSE ---
walked pt to bathroom
--- NOTE | 2020-10-04 09:50 | PC.NURSE ---
During Heart to heart rounding instructions to start PT eval and treat
--- NOTE | 2020-10-04 10:19 | PM.PN ---
Subjective Subjective: Interval history: No new complaints today, oxygen requirement slightly improved at 3 L/min via nasal cannula today. States breathing is better compared to yesterday. Leukocytosis noted to be at 16.7, afebrile, hemodynamically stable, procalcitonin negative. Medications: Reviewed: Yes Vitals/I&O/Wt Last Vital Signs Temp 98.4 F 10/04/20 07:21 Pulse 78 10/04/20 08:31 Resp 18 10/04/20 08:26 BP 122/61 10/04/20 07:21 Pulse Ox 97 10/04/20 08:26 10/03/20 10/04/20 10/04/20 22:59 06:59 14:59 Intake Total 420 / 660 150 / 810 360 / 360 Output Total 250 / 250 Balance 420 / 660 -100 / 560 360 / 360 Weight last 48 hrs Weight 81.647 kg Physical Exam Narrative: EXAM NARRATIVE: GEN: Awake, alert and oriented, no acute distress CVS: S1S2 N RS: CTA B/L Abd: Soft, nt/nd , bs+ MANAGER OF ENTERPRISE: no focal neuro deficits Extremities no lower extremity edema or cyanosis Data : 10/04/20 04:06 10/04/20 04:06 A&P Assessment and plan (1) Non-ST elevated myocardial infarction (non-STEMI): Continue aspirin 81 mg p.o. daily, Plavix 75 mg daily Currently also on full dose Lovenox twice daily for NSTEMI. Significant troponin delta's of 122 and 155 respectively. Denies current chest pain, hemodynamically stable Appreciate cardiology consult, plan for Seed Corn Production Manager once optimized from a respiratory standpoint Echocardiogram shows mild diffuse hypokinesia of the LV apex, EF is around 55%, thickened aortic and mitral valves. No current signs of decompensated heart failure. BNP is negative, chest x-ray does not show signs of pulmonary edema, no noted edema or JVD. Carvedilol changed to metoprolol 25 mg p.o. twice daily yesterday Holding losartan in anticipation of upcoming angiogram and contrast administration, blood pressure currently well controlled off of it Status: Acute (2) Acute respiratory failure with hypoxia and hypercapnia: Patient reports a history of recurrent bronchitis every 3 to 4 months, she has had PFTs in the past but does not with the results. I suspect she may have underlying COPD. Also possible that the shortness of breath she is describing over the past year may be cardiac in nature. PFTs to be recommended as outpatient. Continue DuoNeb scheduled every 6 hours, budesonide twice daily. Prednisone 40 mg p.o. daily for COPD exacerbation Add levofloxacin for COPD exacerbation. Leukocytosis noted, no gross pneumonia or consolidation noted on CT of the chest. UA is unremarkable. Procalcitonin is negative. Suspect that this is margination related to high-dose steroids, less indicative of untreated infection. Check blood culture to complete infectious work-up Rapid Covid antigen negative. Status: Acute (3) COPD exacerbation: Management as above Status: Acute (4) Diabetes mellitus type 2 with neurological manifestations: Uncontrolled diabetes mellitus, A1c at 8.9. Fingersticks currently controlled with medium dose sliding scale Status: Acute (5) Tobacco use: nicotine patch Status: Acute (6) Peripheral neuropathy: Resume home dose of Lyrica and duloxetine Status: Acute Qualifiers: Peripheral neuropathy type: polyneuropathy, unspecified Qualified Code(s): G62.9 - Polyneuropathy, unspecified Attestations Medical Necessity Statement*: NSTEMI, awaiting angiogram pending respiratory optimization Coding Level of Care Code Acute Enamel Pulverizer for [facility] Diagnoses Non-ST elevated myocardial infarction (non-STEMI) I21.4 Acute respiratory failure with hypoxia and hypercapnia J96.01; J96.02 COPD exacerbation J44.1 Diabetes mellitus type 2 with neurological manifestations E11.49 Tobacco use Z72.0 Peripheral neuropathy G62.9 Peripheral neuropathy type: polyneuropathy, unspecified
[2020-10-04] MEDS: diphenhydrAMINE 50 mg Capsule PO (10:22)
[2020-10-04] MEDS: clopidogrel 75 mg Tablet PO (10:22)
[2020-10-04] MEDS: enoxaparin 80 mg/0.8 mL Syringe SUBCUT ×3 (10:22→22:41)
[2020-10-04] MEDS: sodium chloride 0.9% 1,000 ML 50 ML IV (10:22)
[2020-10-04] MEDS: levoFLOXacin 750 mg Tablet PO (10:55)
[2020-10-04 11:11] LABS: Glucose Point of Care 173 mg/dL (70-110)
--- NOTE | 2020-10-04 12:47 | PC.NURSE ---
asked pt to see if she needed to use bathroom she said no and shes not wet
--- NOTE | 2020-10-04 14:15 | PC.NURSE ---
computer lab para professional Note This nurse was notified by Dr. Waters via telephone that the patients [facility] scheduled for today at 1630 would be moved to tomorrow 10/05/20 at 1630. [facility] [place], on CSU had already been notified and the patient was moved on the schedule.
[2020-10-04 16:30] LABS: Influenza A by IFA Negative (Negative); Influenza B by IFA Negative (Negative)
[2020-10-04 16:30] LABS: Glucose Point of Care 183 mg/dL (70-110)
[2020-10-04 20:09] LABS: Glucose Point of Care 189 mg/dL (70-110)
--- NOTE | 2020-10-04 22:55 | PC.NURSE ---
2318 dose of lovenox erroneously documented on dayshift at 1024, documented 2318 dose as unscheduled at 2241
--- NOTE | 2020-10-04 23:41 | P.PN_ITS ---
Subjective Subjective: Interval history: Patient shortness of breath is improving. She still has some wheezing. Denies any chest pain. She has some amount of easy fatigability and significant dyspnea on exertion. No fever or chills. Has occasional cough. No other specific complaints. Medications: Reviewed: Yes Medication Review Details: Current Medications Acetaminophen (Acetaminophen 325 Mg Tablet) 650 mg PO Q6H PRN PRN Reason: Mild/Mod Pain Or Temp >/= 101 Last Admin: 10/03/20 08:23 Dose: 650 mg Documented by: Albuterol Sulfate (Albuterol 2.5 Mg/0.5 Ml Neb) 2.5 mg INHALATION Q4H.RESPIRATORY PRN PRN Reason: SHORTNESS OF BREATH Albuterol/Ipratropium (Ipratropium-Albuterol 3 Ml Neb) 3 ml INHALATION QID.RESPIRATORY [facility] Last Admin: 10/04/20 20:54 Dose: 3 ml Documented by: Alprazolam (Alprazolam 0.25 Mg Tablet) 0.25 mg PO TID PRN PRN Reason: ANXIETY Last Admin: 10/03/20 13:45 Dose: 0.25 mg Documented by: Aspirin (Aspirin 81 Mg Ec Tablet) 81 mg PO DAILY [facility] Last Admin: 10/04/20 08:13 Dose: 81 mg Documented by: Atorvastatin Calcium (Atorvastatin 40 Mg Tablet) 40 mg PO DAILY [facility] Last Admin: 10/04/20 08:13 Dose: 40 mg Documented by: Budesonide (Budesonide 0.5 Mg/2 Ml Neb) 0.5 mg INHALATION BID.RESPIRATORY [facility] Last Admin: 10/04/20 20:54 Dose: 0.5 mg Documented by: Clopidogrel Bisulfate (Clopidogrel 75 Mg Tablet) 75 mg PO DAILY [facility] Last Admin: 10/03/20 08:23 Dose: 75 mg Documented by: Clopidogrel Bisulfate (Clopidogrel 75 Mg Tablet) 75 mg PO DAILY [facility] Last Admin: 10/04/20 10:22 Dose: 75 mg Documented by: Dextrose (Dextrose 50% Syringe 50 Ml) 25 ml IVP ONCE PRN; Protocol PRN Reason: hypoglycemia protocol Dextrose (Dextrose 50% Syringe 50 Ml) 50 ml IVP PRN PRN; Protocol PRN Reason: hypoglycemia protocol Duloxetine HCl (Duloxetine 60 Mg Capsule) 60 mg PO BID [facility] Last Admin: 10/04/20 17:20 Dose: 60 mg Documented by: Enoxaparin Sodium (Enoxaparin 80 Mg/0.8 Ml Syringe) 80 mg SUBCUT Q12H [facility] Last Admin: 10/04/20 22:41 Dose: 80 mg Documented by: Glucagon (Glucagon 1 Mg/Ml Inj 1 Ml) 1 mg IM ONCE PRN; Protocol PRN Reason: Adult Acute Hypoglycemia Prot. Dextrose (D5w) 500 mls @ 100 mls/hr IV ONCE PRN; Protocol PRN Reason: Adult Acute Hypoglycemia Prot Sodium Chloride (Sodium Chloride 0.9%) 1,000 mls @ 50 mls/hr IV .Q20H ONE Stop: 10/05/20 04:28 Last Admin: 10/04/20 10:22 Dose: 50 mls/hr Documented by: Insulin Aspart (Insulin Aspart 100 Unit/1 Ml) 0 unit SUBCUT WM&BEDTIME [facility]; Protocol Last Admin: 10/04/20 21:44 Dose: 6 unit Documented by: Levofloxacin (Levofloxacin 750 Mg Tablet) 750 mg PO DAILY@0600 [facility]; Protocol Stop: 10/09/20 10:29 Last Admin: 10/04/20 10:55 Dose: 750 mg Documented by: Metoprolol Tartrate (Metoprolol Tartrate 25 Mg Tablet) 25 mg PO BID@0900,2100 [facility] Last Admin: 10/04/20 21:45 Dose: 25 mg Documented by: Morphine Sulfate (Morphine 4 Mg/Ml Sdv 1 Ml) 2 mg IVP Q4H PRN PRN Reason: SEVERE PAIN Last Admin: 10/04/20 14:41 Dose: 2 mg Documented by: Nicotine (Nicotine 21 Mg Patch) 1 patch TRANSDERMA DAILY [facility] Last Admin: 10/04/20 08:15 Dose: 1 patch Documented by: Nitroglycerin (Nitroglycerin 1 Gm/Inch Oint Pkt) 0.5 inch TOPICAL Q6H PRN PRN Reason: chest pain Ondansetron HCl (Ondansetron 2 Mg/Ml Sdv 2 Ml) 4 mg IVP Q6H PRN PRN Reason: NAUSEA AND VOMITING Pantoprazole Sodium (Pantoprazole Dr 40 Mg Tablet) 40 mg PO DAILY [facility] Last Admin: 10/04/20 08:15 Dose: 40 mg Documented by: Prednisone (Prednisone 20 Mg Tablet) 40 mg PO DAILY [facility] Last Admin: 10/04/20 08:14 Dose: 40 mg Documented by: Pregabalin (Pregabalin 100 Mg Capsule) 200 mg PO TID [facility] Last Admin: 10/04/20 21:45 Dose: 200 mg Documented by: Vitals/I&O/Wt Last Vital Signs Temp 98 F 10/04/20 19:40 Pulse 73 10/04/20 21:02 Resp 17 10/04/20 20:54 BP 152/77 10/04/20 19:40 Pulse Ox 94 10/04/20 20:54 10/04/20 10/04/20 10/05/20 14:59 22:59 06:59 Intake Total 720 / 720 240 / 960 Balance 720 / 720 240 / 960 Physical Exam Narrative: EXAM NARRATIVE: GENERAL: The patient is alert and oriented times three. Not in any acute distress. Morbidly obese. Short stature. HEENT: No significant pallor, icterus or lymphadenopathy. The pupils are reactant to light. Oral cavity: There are no mucous membrane lesions. NECK: Trachea appears to be central. No masses noted. No JVD or thyromegaly appreciated. No carotid bruit. RESPIRATORY: Chest is symmetrical. No intercostals muscle retraction or any accessory muscle activation. There is no chest wall tenderness. Breath sounds are heard bilaterally. No rales or rhonchi heard. No evidence of any consolidation. BREASTS: Deferred. HEART: The PMI could not be palpated. First and second heart sounds are normal. No S3. S4 present. No significant murmurs. ABDOMEN: Abdomen is obese nontender no organomegaly. Bowel sounds are normally heard. : Deferred. RECTAL: Deferred. LYMPHATIC: No lymphadenopathy noted in the neck or groin. EXTREMITIES: Trace edema with no cyanosis. Peripheral pulses are felt in fairly good volume and amplitude MUSCULOSKELETAL: No acute joint deformities or swelling SKIN: There are no significant scars or skin rash noted. NEUROPSYCHIATRIC: The patient is alert and oriented x3. Appears to be in a good mood. The higher functions are grossly within normal limits. No tremors or rigidity noted. Data : 10/04/20 04:06 10/04/20 04:06 Micro: Microbiology Laboratory Last Values WBC 16.7 10^3/uL (4.0-10.0) H 10/04/20 04:06 RBC 4.69 10^6/uL (4.1-5.3) 10/04/20 04:06 Hgb 14.2 g/dL (11.5-15.3) 10/04/20 04:06 Hct 44.7 % (37.0-47.0) 10/04/20 04:06 MCV 95.3 fL (81-99) 10/04/20 04:06 MCH 30.3 pg (28.0-34.0) 10/04/20 04:06 MCHC 31.8 g/dL (30.0-36.0) 10/04/20 04:06 RDW 12.2 % (12.1-15.1) 10/04/20 04:06 Plt Count 174 10^3/cmm (130-400) 10/04/20 04:06 MPV 13.3 fL (7.4-10.4) H 10/04/20 04:06 Neut % (Auto) 81.5 % 10/04/20 04:06 Lymph % (Auto) 11.7 % 10/04/20 04:06 Crockett % (Auto) 6.0 % 10/04/20 04:06 Eos % (Auto) 0.0 % 10/04/20 04:06 Baso % (Auto) 0.2 % 10/04/20 04:06 Neut # (Auto) 13.62 10^3/uL (1.8-7.7) H 10/04/20 04:06 Lymph # (Auto) 2.0 10^3/uL (0.8-4.8) 10/04/20 04:06 Crockett # (Auto) 1.0 10^3/uL (0.2-0.9) H 10/04/20 04:06 Eos # (Auto) 0.0 10^3/uL (0.0-0.8) 10/04/20 04:06 Baso # (Auto) 0.0 10^3/uL (0.0-0.1) 10/04/20 04:06 Nucleated RBC % (auto) 0 % 10/04/20 04:06 Nucleated RBCs # 0.0 /100WBC 10/04/20 04:06 PT 13.00 SECONDS (12.1-14.9) 10/02/20 18:05 INR 0.96 (0.8-1.2) 10/02/20 18:05 Specimen Type Arterial 10/02/20 21:10 Sample Site Radial, right 10/02/20 21:10 ABG pH 7.34 (7.35-7.45) L 10/02/20 21:10 ABG pCO2 52.0 mmHg (35-45) H 10/02/20 21:10 ABG pO2 120.0 mmHg (80.0-100.0) H 10/02/20 21:10 ABG HCO3 27.9 mmol/L (22-26) H 10/02/20 21:10 ABG Base Excess 0.9 mmol/L (-2.0-2.0) 10/02/20 21:10 Chucky Test Pos 10/02/20 21:10 Hematocrit 48.9 % (37-47) H 10/02/20 21:10 Hgb O2 Saturation 89.9 % (95-100) L 10/02/20 17:58 Carboxyhemoglobin 5.5 %THgb (0.4-20.1) 10/02/20 17:58 Methemoglobin 0.8 % (0.4-1.5) 10/02/20 17:58 Total Hemoglobin 16.6 g/dL (12-16) H 10/02/20 17:58 O2 Delivery Device Bipap 10/02/20 21:10 O2 Liters/Min 5.0 % 10/02/20 17:58 FiO2 35.0 % 10/02/20 21:10 Validation Technician ID chey 10/02/20 21:10 Sodium 139 mmol/L (136-145) 10/04/20 04:06 Potassium 3.9 mmol/L (3.5-5.1) 10/04/20 04:06 Chloride 104 mmol/L (98-107) 10/04/20 04:06 Carbon Dioxide 27 mmol/L (22-29) 10/04/20 04:06 Anion Gap 11.9 (5-19) 10/04/20 04:06 BUN 17 mg/dL (8-23) 10/04/20 04:06 Creatinine 0.7 mg/dL (0.5-0.9) 10/04/20 04:06 GFR Calculation 84.8 mL/min (90-130) L 10/04/20 04:06 Glucose 165 mg/dL (65-115) H 10/04/20 04:06 POC Glucose 189 mg/dL (70-110) H 10/04/20 19:52 Estimat Average Glucose 209 10/04/20 04:06 Hemoglobin A1c 8.9 % (4.0-6.0) H 10/04/20 04:06 Calculated Osmolality 293 mOsm/kg (285-295) 10/04/20 04:06 Calcium 8.9 mg/dL (8.5-10.5) 10/04/20 04:06 Magnesium 1.8 mg/dL (1.7-2.3) 10/03/20 02:45 Total Bilirubin 0.3 mg/dL (0.15-1.2) 10/04/20 04:06 AST 35 U/L (0-32) H 10/04/20 04:06 ALT 34 U/L (0-33) H 10/04/20 04:06 Alkaline Phosphatase 69 IU/L (35-105) 10/04/20 04:06 Troponin T Baseline 20 ng/L (0-10) H 10/02/20 18:05 Troponin T 120 Minute 142.9 ng/L (0-10) H 10/02/20 20:25 Delta Troponin T 122.9 ABS# (0-10) H* 10/02/20 20:25 Troponin T Hi Sens 6Hr 172.0 ng/L (0-10) H 10/03/20 02:45 Troponin T Hi Sens 6Hr Delta 152 ng/L (0-12) H* 10/03/20 02:45 NT-Pro-B Natriuret Pep 90 pg/mL (0-125) 10/02/20 18:05 Total Protein 6.6 g/dL (6.6-8.7) 10/04/20 04:06 Albumin 3.8 g/dL (3.5-5.2) 10/04/20 04:06 Globulin 2.8 g/dL (1.3-4.6) 10/04/20 04:06 Triglycerides 274 mg/dL (0-150) H 10/03/20 02:45 Cholesterol 184 mg/dL (0-200) 10/03/20 02:45 LDL Cholesterol, Calc 103 mg/dL (50-129) 10/03/20 02:45 HDL Cholesterol 26 mg/dL (60-100) L 10/03/20 02:45 LDL/HDL Ratio 3.96 RATIO (0.00-3.22) H 10/03/20 02:45 Cholesterol/HDL Ratio 7.08 mg/dL (0.0-4.40) H 10/03/20 02:45 Procalcitonin 0.10 ng/mL (0-0.5) 10/04/20 04:06 TSH 0.23 uIU/mL (0.27-4.20) L 10/03/20 02:45 Free T4 0.99 ng/dL (0.82-1.77) 10/04/20 04:06 Free T3 2.5 PG/ML (2.0-4.4) 10/04/20 04:06 Influenza Type A Ag Negative (Negative) 10/04/20 15:50 Influenza Type B Ag Negative (Negative) 10/04/20 15:50 SARS-CoV-2 Ag (Rapid) Negative (Negative) 10/03/20 17:30 10/04/20 10:44 Blood Culture - Preliminary Blood SPECIMEN COLLECTED 10/04/20 10:36 Blood Culture - Preliminary Blood SPECIMEN COLLECTED A&P Assessment and plan (1) Non-ST elevated myocardial infarction (non-STEMI): Patient is a clinical features are consistent with non-ST relation myocardial infarction. May continue on the current medications. For further evaluation of her coronary status, she requires a cardiac catheterization. The risk of bleeding, hematoma, vascular injury, myocardial infarction, CVA, renal failure and other concomitant complications were explained in detail. Patient understood this well and consented to proceed. We may go ahead and schedule for the procedure tomorrow. Status: Acute (2) COPD exacerbation: Management as per the primary. According the patient, the breathing has significantly improved. Status: Acute (3) Hyperlipidemia: Patient is on Lipitor. This may be continued. Status: Acute Qualifiers: Hyperlipidemia type: mixed hyperlipidemia Qualified Code(s): E78.2 - Mixed hyperlipidemia (4) Essential hypertension: Currently the blood pressure is a stage II. We will try to optimize the antihypertensive medications. 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 Aggressive treatment as per the primary Status: Acute Additional A&P Information Based on the patient's clinical progress and the results of the above, further recommendations will be made. 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
[2020-10-05] VITALS (38 sets, daily range): BP systolic 116–155; BP diastolic 68–99; PULSE 60–78; RESP 14–27; TEMP 36.3–36.6; O2SAT 88–95
[2020-10-05] MEDS: levoFLOXacin 750 mg Tablet PO (05:22)
[2020-10-05] MEDS: sodium chloride 0.9% 1,000 ML 50 ML IV (06:03)
[2020-10-05 06:45] LABS: Glucose Point of Care 138 mg/dL (70-110)
[2020-10-05] MEDS: ipratropium-albuterol 3 mL Neb INHALATION ×4 (07:27→23:03)
[2020-10-05] MEDS: budesonide 0.5 mg/2 mL Neb INHALATION ×2 (07:27→23:03)
[2020-10-05] MEDS: morphine 4 mg/mL SDV 1 mL 2 MG IVP (07:53)
[2020-10-05] MEDS: pantoprazole DR 40 mg Tablet PO (08:06)
[2020-10-05] MEDS: clopidogrel 75 mg Tablet PO (08:06)
[2020-10-05] MEDS: aspirin 81 mg EC Tablet PO (08:06)
[2020-10-05] MEDS: predniSONE 20 mg Tablet 40 MG PO (08:06)
[2020-10-05] MEDS: pregabalin 100 mg Capsule 200 MG PO ×3 (08:06→20:35)
[2020-10-05] MEDS: amlodipine 5 mg Tablet 2.5 MG PO (08:07)
[2020-10-05] MEDS: metoprolol tartrate 25 mg Tablet PO ×2 (08:07→20:35)
[2020-10-05] MEDS: duloxetine 60 mg Capsule PO (08:07)
[2020-10-05] MEDS: atorvastatin 40 mg Tablet PO (08:07)
[2020-10-05] MEDS: nicotine 21 mg Patch 1 PATCH TRANSDERMA (08:08)
[2020-10-05 10:45] LABS: Glucose Point of Care 191 mg/dL (70-110)
--- NOTE | 2020-10-05 10:59 | DCPLANNER ---
IMM completed with pt 10/05/20 @ 0942. Copy of rights given to pt.
[2020-10-05] MEDS: enoxaparin 80 mg/0.8 mL Syringe SUBCUT (12:23)
--- NOTE | 2020-10-05 13:00 | PM.PN ---
Subjective Subjective: Interval history: Continues to have intermittent chest discomfort, oxygen requirement improved to 3 L/min today, subjectively feels less wheezing. Less anxious as daughter at bedside today, plan for cardiac cath later this afternoon. 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 daily, Plavix 75 mg daily Currently also on full dose Lovenox twice daily for NSTEMI. Significant troponin delta's of 122 and 155 respectively. Echocardiogram shows mild diffuse hypokinesia of the LV apex, EF is around 55%, thickened aortic and mitral valves. No current signs of decompensated heart failure. BNP is negative, chest x-ray does not show signs of pulmonary edema, no noted edema or JVD. Continue metoprolol 25 mg p.o. twice daily yesterday Losartan discontinued, amlodipine 2.5 mg added in case contributing to chronic cough and with patient's described as recurrent bronchitis. Left heart cath this afternoon Status: Acute (2) COPD exacerbation: Management as above Status: Acute (3) Hyperlipidemia: Status: Acute Qualifiers: Hyperlipidemia type: mixed hyperlipidemia Qualified Code(s): E78.2 - Mixed hyperlipidemia (4) Essential hypertension: Status: Acute (5) Diabetes mellitus type 2 with neurological manifestations: Uncontrolled diabetes mellitus, A1c at 8.9. Fingersticks currently controlled with medium dose sliding scale Status: Acute Attestations Medical Necessity Statement*: Left heart cath planned for NSTEMI Coding Level of Care Code Acute Weight Caller for Becky Fwtierney Diagnoses Non-ST elevated myocardial infarction (non-STEMI) I21.4 COPD exacerbation J44.1 Hyperlipidemia E78.2 Hyperlipidemia type: mixed hyperlipidemia Essential hypertension I10 Diabetes mellitus type 2 with neurological manifestations E11.49
--- NOTE | 2020-10-05 14:08 | P.PN_ITS ---
Subjective Subjective: Interval history: Patient is feeling okay. She had some sweating spells this morning which is resolving now. No chest pain. No unusual shortness of breath. No significant arrhythmias on the monitor. Vital signs seems to be stable. Medications: Reviewed: Yes Medication Review Details: Current Medications Acetaminophen (Acetaminophen 325 Mg Tablet) 650 mg PO Q6H PRN PRN Reason: Mild/Mod Pain Or Temp >/= 101 Last Admin: 10/03/20 08:23 Dose: 650 mg Documented by: Albuterol Sulfate (Albuterol 2.5 Mg/0.5 Ml Neb) 2.5 mg INHALATION Q4H.RESPIRATORY PRN PRN Reason: SHORTNESS OF BREATH Albuterol/Ipratropium (Ipratropium-Albuterol 3 Ml Neb) 3 ml INHALATION Q ID.RESPIRATORY [facility] Last Admin: 10/05/20 12:33 Dose: 3 ml Documented by: Alprazolam (Alprazolam 0.25 Mg Tablet) 0.25 mg PO TID PRN PRN Reason: ANXIETY Last Admin: 10/03/20 13:45 Dose: 0.25 mg Documented by: Amlodipine Besylate (Amlodipine 5 Mg Tablet) 2.5 mg PO DAILY [facility] Last Admin: 10/05/20 08:07 Dose: 2.5 mg Documented by: Aspirin (Aspirin 81 Mg Ec Tablet) 81 mg PO DAILY [facility] Last Admin: 10/05/20 08:06 Dose: 81 mg Documented by: Atorvastatin Calcium (Atorvastatin 40 Mg Tablet) 40 mg PO DAILY [facility] Last Admin: 10/05/20 08:07 Dose: 40 mg Documented by: Budesonide (Budesonide 0.5 Mg/2 Ml Neb) 0.5 mg INHALATION BID.RESPIRATORY [facility] Last Admin: 10/05/20 07:27 Dose: 0.5 mg Documented by: Clopidogrel Bisulfate (Clopidogrel 75 Mg Tablet) 75 mg PO DAILY [facility] Last Admin: 10/03/20 08:23 Dose: 75 mg Documented by: Clopidogrel Bisulfate (Clopidogrel 75 Mg Tablet) 75 mg PO DAILY [facility] Last Admin: 10/05/20 08:06 Dose: 75 mg Documented by: Dextrose (Dextrose 50% Syringe 50 Ml) 25 ml IVP ONCE PRN; Protocol PRN Reason: hypoglycemia protocol Dextrose (Dextrose 50% Syringe 50 Ml) 50 ml IVP PRN PRN; Protocol PRN Reason: hypoglycemia protocol Diphenhydramine HCl (Diphenhydramine 50 Mg Capsule) 50 mg PO ONCE ONE Stop: 10/05/20 15:31 Duloxetine HCl (Duloxetine 60 Mg Capsule) 60 mg PO BID [facility] Last Admin: 10/05/20 08:07 Dose: 60 mg Documented by: Enoxaparin Sodium (Enoxaparin 80 Mg/0.8 Ml Syringe) 80 mg SUBCUT Q12H [facility] Last Admin: 10/05/20 12:23 Dose: 80 mg Documented by: Glucagon (Glucagon 1 Mg/Ml Inj 1 Ml) 1 mg IM ONCE PRN; Protocol PRN Reason: Adult Acute Hypoglycemia Prot. Dextrose (D5w) 500 mls @ 100 mls/hr IV ONCE PRN; Protocol PRN Reason: Adult Acute Hypoglycemia Prot Sodium Chloride (Sodium Chloride 0.9%) 1,000 mls @ 50 mls/hr IV .Q20H ONE Stop: 10/06/20 02:59 Last Admin: 10/05/20 06:03 Dose: 50 mls/hr Documented by: Insulin Aspart (Insulin Aspart 100 Unit/1 Ml) 0 unit SUBCUT WM&BEDTIME [facility]; Protocol Last Admin: 10/05/20 12:25 Dose: 6 unit Documented by: Levofloxacin (Levofloxacin 750 Mg Tablet) 750 mg PO DAILY@0600 [facility]; Protocol Stop: 10/09/20 10:29 Last Admin: 10/05/20 05:22 Dose: 750 mg Documented by: Metoprolol Tartrate (Metoprolol Tartrate 25 Mg Tablet) 25 mg PO BID@0900,2100 [facility] Last Admin: 10/05/20 08:07 Dose: 25 mg Documented by: Morphine Sulfate (Morphine 4 Mg/Ml Sdv 1 Ml) 2 mg IVP Q4H PRN PRN Reason: SEVERE PAIN Last Admin: 10/05/20 07:53 Dose: 2 mg Documented by: Nicotine (Nicotine 21 Mg Patch) 1 patch TRANSDERMA DAILY [facility] Last Admin: 10/05/20 08:08 Dose: 1 patch Documented by: Nitroglycerin (Nitroglycerin 1 Gm/Inch Oint Pkt) 0.5 inch TOPICAL Q6H PRN PRN Reason: chest pain Ondansetron HCl (Ondansetron 2 Mg/Ml Sdv 2 Ml) 4 mg IVP Q6H PRN PRN Reason: NAUSEA AND VOMITING Pantoprazole Sodium (Pantoprazole Dr 40 Mg Tablet) 40 mg PO DAILY [facility] Last Admin: 10/05/20 08:06 Dose: 40 mg Documented by: Prednisone (Prednisone 20 Mg Tablet) 40 mg PO DAILY [facility] Last Admin: 10/05/20 08:06 Dose: 40 mg Documented by: Pregabalin (Pregabalin 100 Mg Capsule) 200 mg PO TID [facility] Last Admin: 10/05/20 08:06 Dose: 200 mg Documented by: Vitals/I&O/Wt Last Vital Signs Temp 97.7 F 10/05/20 12:00 Pulse 76 10/05/20 14:00 Resp 17 10/05/20 12:33 BP 134/83 10/05/20 12:00 Pulse Ox 91 10/05/20 12:33 10/04/20 10/05/20 10/05/20 22:59 06:59 14:59 Intake Total 1239 1150 / 3110 480 / 480 Balance 1241959 1150 / 3110 480 / 480 Physical Exam Narrative: EXAM NARRATIVE: GENERAL: The patient is alert and oriented times three. Not in any acute distress. Morbidly obese. Short stature. HEENT: No significant pallor, icterus or lymphadenopathy. Morbidly obese. Oral cavity: There are no mucous membrane lesions. NECK: Trachea appears to be central. No masses noted. No JVD or thyromegaly appreciated. No carotid bruit. RESPIRATORY: Chest is symmetrical. No intercostals muscle retraction or any accessory muscle activation. There is no chest wall tenderness. Breath sounds are heard bilaterally. No rales or rhonchi heard. No evidence of any consolidation. BREASTS: Deferred. HEART: The PMI could not be palpated. First and second heart sounds are normal. No S3. S4 present. No significant murmurs. ABDOMEN: Abdomen is obese nontender no organomegaly. Bowel sounds are normally heard. : Deferred. RECTAL: Deferred. LYMPHATIC: No lymphadenopathy noted in the neck or groin. EXTREMITIES: Trace edema with no cyanosis. Peripheral pulses are felt in fairly good volume and amplitude MUSCULOSKELETAL: No acute joint deformities or swelling SKIN: There are no significant scars or skin rash noted. NEUROPSYCHIATRIC: The patient is alert and oriented x3. Appears to be in a good mood. The higher functions are grossly within normal limits. No tremors or rigidity noted. Data : 10/04/20 04:06 10/04/20 04:06 Other Labs: Laboratory Last Values WBC 16.7 10^3/uL (4.0-10.0) H 10/04/20 04:06 RBC 4.69 10^6/uL (4.1-5.3) 10/04/20 04:06 Hgb 14.2 g/dL (11.5-15.3) 10/04/20 04:06 Hct 44.7 % (37.0-47.0) 10/04/20 04:06 MCV 95.3 fL (81-99) 10/04/20 04:06 MCH 30.3 pg (28.0-34.0) 10/04/20 04:06 MCHC 31.8 g/dL (30.0-36.0) 10/04/20 04:06 RDW 12.2 % (12.1-15.1) 10/04/20 04:06 Plt Count 174 10^3/cmm (130-400) 10/04/20 04:06 MPV 13.3 fL (7.4-10.4) H 10/04/20 04:06 Neut % (Auto) 81.5 % 10/04/20 04:06 Lymph % (Auto) 11.7 % 10/04/20 04:06 Peach % (Auto) 6.0 % 10/04/20 04:06 Eos % (Auto) 0.0 % 10/04/20 04:06 Baso % (Auto) 0.2 % 10/04/20 04:06 Neut # (Auto) 13.62 10^3/uL (1.8-7.7) H 10/04/20 04:06 Lymph # (Auto) 2.0 10^3/uL (0.8-4.8) 10/04/20 04:06 Peach # (Auto) 1.0 10^3/uL (0.2-0.9) H 10/04/20 04:06 Eos # (Auto) 0.0 10^3/uL (0.0-0.8) 10/04/20 04:06 Baso # (Auto) 0.0 10^3/uL (0.0-0.1) 10/04/20 04:06 Nucleated RBC % (auto) 0 % 10/04/20 04:06 Nucleated RBCs # 0.0 /100WBC 10/04/20 04:06 PT 13.00 SECONDS (12.1-14.9) 10/02/20 18:05 INR 0.96 (0.8-1.2) 10/02/20 18:05 Specimen Type Arterial 10/02/20 21:10 Sample Site Radial, right 10/02/20 21:10 ABG pH 7.34 (7.35-7.45) L 10/02/20 21:10 ABG pCO2 52.0 mmHg (35-45) H 10/02/20 21:10 ABG pO2 120.0 mmHg (80.0-100.0) H 10/02/20 21:10 ABG HCO3 27.9 mmol/L (22-26) H 10/02/20 21:10 ABG Base Excess 0.9 mmol/L (-2.0-2.0) 10/02/20 21:10 Chucky Test Pos 10/02/20 21:10 Hematocrit 48.9 % (37-47) H 10/02/20 21:10 Hgb O2 Saturation 89.9 % (95-100) L 10/02/20 17:58 Carboxyhemoglobin 5.5 %THgb (0.4-20.1) 10/02/20 17:58 Methemoglobin 0.8 % (0.4-1.5) 10/02/20 17:58 Total Hemoglobin 16.6 g/dL (12-16) H 10/02/20 17:58 O2 Delivery Device Bipap 10/02/20 21:10 O2 Liters/Min 5.0 % 10/02/20 17:58 FiO2 35.0 % 10/02/20 21:10 Dry House Attendant ID [email or web address] 10/02/20 21:10 Sodium 139 mmol/L (136-145) 10/04/20 04:06 Potassium 3.9 mmol/L (3.5-5.1) 10/04/20 04:06 Chloride 104 mmol/L (98-107) 10/04/20 04:06 Carbon Dioxide 27 mmol/L (22-29) 10/04/20 04:06 Anion Gap 11.9 (5-19) 10/04/20 04:06 BUN 17 mg/dL (8-23) 10/04/20 04:06 Creatinine 0.7 mg/dL (0.5-0.9) 10/04/20 04:06 GFR Calculation 84.8 mL/min (90-130) L 10/04/20 04:06 Glucose 165 mg/dL (65-115) H 10/04/20 04:06 POC Glucose 191 mg/dL (70-110) H 10/05/20 10:38 Estimat Average Glucose 209 10/04/20 04:06 Hemoglobin A1c 8.9 % (4.0-6.0) H 10/04/20 04:06 Calculated Osmolality 293 mOsm/kg (285-295) 10/04/20 04:06 Calcium 8.9 mg/dL (8.5-10.5) 10/04/20 04:06 Magnesium 1.8 mg/dL (1.7-2.3) 10/03/20 02:45 Total Bilirubin 0.3 mg/dL (0.15-1.2) 10/04/20 04:06 AST 35 U/L (0-32) H 10/04/20 04:06 ALT 34 U/L (0-33) H 10/04/20 04:06 Alkaline Phosphatase 69 IU/L (35-105) 10/04/20 04:06 Troponin T Baseline 20 ng/L (0-10) H 10/02/20 18:05 Troponin T 120 Minute 142.9 ng/L (0-10) H 10/02/20 20:25 Delta Troponin T 122.9 ABS# (0-10) H* 10/02/20 20:25 Troponin T Hi Sens 6Hr 172.0 ng/L (0-10) H 10/03/20 02:45 Troponin T Hi Sens 6Hr Delta 152 ng/L (0-12) H* 10/03/20 02:45 NT-Pro-B Natriuret Pep 90 pg/mL (0-125) 10/02/20 18:05 Total Protein 6.6 g/dL (6.6-8.7) 10/04/20 04:06 Albumin 3.8 g/dL (3.5-5.2) 10/04/20 04:06 Globulin 2.8 g/dL (1.3-4.6) 10/04/20 04:06 Triglycerides 274 mg/dL (0-150) H 10/03/20 02:45 Cholesterol 184 mg/dL (0-200) 10/03/20 02:45 LDL Cholesterol, Calc 103 mg/dL (50-129) 10/03/20 02:45 HDL Cholesterol 26 mg/dL (60-100) L 10/03/20 02:45 LDL/HDL Ratio 3.96 RATIO (0.00-3.22) H 10/03/20 02:45 Cholesterol/HDL Ratio 7.08 mg/dL (0.0-4.40) H 10/03/20 02:45 Procalcitonin 0.10 ng/mL (0-0.5) 10/04/20 04:06 TSH 0.23 uIU/mL (0.27-4.20) L 10/03/20 02:45 Free T4 0.99 ng/dL (0.82-1.77) 10/04/20 04:06 Free T3 2.5 PG/ML (2.0-4.4) 10/04/20 04:06 Influenza Type A Ag Negative (Negative) 10/04/20 15:50 Influenza Type B Ag Negative (Negative) 10/04/20 15:50 SARS-CoV-2 Ag (Rapid) Negative (Negative) 10/03/20 17:30 Micro: Microbiology 10/04/20 10:44 Blood Culture - Preliminary Blood NEGATIVE TO DATE 10/04/20 10:36 Blood Culture - Preliminary Blood NEGATIVE TO DATE A&P Assessment and plan (1) Non-ST elevated myocardial infarction (non-STEMI): Patient is a clinical features are consistent with non-ST relation myocardial infarction. May continue on the current medications. For further evaluation of her coronary status, she requires a cardiac catheterization. The risk of bleeding, hematoma, vascular injury, myocardial infarction, CVA, renal failure and other concomitant complications were explained in detail. Patient understood this well and consented to proceed. She is scheduled for the cardiac radiation this afternoon. Based on the results, further management decisions will be made. Status: Acute (2) COPD exacerbation: Management as per the primary. According the patient, the breathing has significantly improved. Status: Acute (3) Hyperlipidemia: Patient is on Lipitor. This may be continued. Status: Acute Qualifiers: Hyperlipidemia type: mixed hyperlipidemia Qualified Code(s): E78.2 - Mixed hyperlipidemia (4) Essential hypertension: Currently the blood pressure is a stage II. We will try to optimize the antihypertensive medications. 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 Aggressive treatment as per the primary Status: Acute Additional A&P Information Based on the patient's clinical progress and the results of the above, further recommendations will be made. Attestations Medical Necessity Statement*: Patient requires continued hospital stay for close monitoring and further management Coding Level of Care Code Acute Maintenance Assistant for [facility] Fwd Diagnoses Non-ST elevated myocardial infarction (non-STEMI) I21.4 COPD exacerbation J44.1 Hyperlipidemia E78.2 Hyperlipidemia type: mixed hyperlipidemia Essential hypertension I10 Diabetes mellitus type 2 with neurological manifestations E11.49
--- NOTE | 2020-10-05 14:11 | W.PM.OPSUD ---
Surgery/Procedure H&P Update DATE OF PROCEDURE: October 05, 2020 DATE H&P PERFORMED: 10/03/20 H&P UPDATE INFORMATION: I have reviewed H&P completed within last 30 days, I have examined patient prior to procedure and No changes to prior documentation PREOP DIAGNOSIS: Non-ST relation myocardial infarction/CHF PLANNED PROCEDURE: Operation Date: 10/04/20 18:00 Proposed Procedures p Left Cardiac Catheterization(Left) - Jayce Waters MD Operation Date: 10/05/20 16:30 Proposed Procedures p left Cardiac Catheterization 12755 I21.4(Left) - Jayce Waters MD PATIENT REASSESSED PRIOR TO SEDATION, WITH NO CHANGE NOTED: Yes PHYSICAL EXAM: alert and clear to auscultation bilaterally (Scattered expiratory wheezing) AIRWAY EVAL/ANESTHESIA PLAN: normal airway, ASA III, Monitored Anesthesia, Local Anesthesia, Risks, benefits & alternatives of sedation and/or procedure discussed and Patient agrees to continue as planned
[2020-10-05] MEDS: diphenhydrAMINE 50 mg Capsule PO (14:41)
--- NOTE | 2020-10-05 16:30 | XACV_ITS ---
Exam Room: [facility] Ht: 155 cm Wt: 82 kg BSA: 1.91 m2 Gender: Female : 1960 Any Known Allergies: Other Exam Priority: Routine Procedure(s): Procedure Description: Diagnostic procedure Procedure Description: PCI procedure Procedure Description: Drug Eluting Coronary Stent Procedure Description: PTCA Procedure Description: Coronary Angiography Diagnostic Cath Status: Urgent Diagnostic Findings * Left main is a medium caliber vessel with moderate eccentric plaque in the mid segment. * The left anterior descending artery is a medium caliber vessel which appears to have a segmental narrowing of around 60 to 70% just before the takeoff of the first diagonal branch. A large septal pillowcase folder also appeared to be originating at this point. The mid LAD was found to have mild to moderate diffuse disease. Just before the second diagonal branch, there is a tubular narrowing of around 80%. The distal LAD was found to have minimal intimal irregularities. The artery appears to wrap around the LV apex minimally. * The left circumflex artery is a medium to large caliber, dominant vessel which was found to have mild diffuse intimal irregularities proximally. The first obtuse marginal artery was found to have around 20 to 30% diffuse narrowing in the proximal segment. The artery gives of PLV branches which were found to have mild diffuse intimal irregularities. * Right coronary artery is a small caliber nondominant vessel which was found to have moderate diffuse disease proximally. Then the artery appears to trifurcate. Just before the trifurcation there was a 50 to 60% stenosis. No other significant stenotic lesions. PCI Status: Urgent PCI Indication: NSTE - ACS Interventional Findings * Procedure detail: We engaged left main artery using XB 3.5 guide catheter. IV heparin was used to maintain an ACT above 250 seconds. A 0.014 run-through guidewire was used to cross the LAD stenosis. We predilated the total LAD stenosis with 2.5 x 12 mm semicompliant balloon. We used the same balloon to predilate the proximal LAD stenosis. We first placed the proximal LAD 3.5 x 12 mm drug-eluting stent. This was followed by placement of 3.0 x 18 mm resolute [place] drug-eluting stent in mid to distal LAD. At this time we noted some haziness at the distal edge of the first stent. We placed a 3.0 x 8 mm resolute [place] drug-eluting stent overlapping with the proximal LAD stent. We then then postdilated the proximal LAD stent with a 3.25 x 6 mm NC balloon. We used second guidewire to protect large diagonal artery during placement of proximal LAD stent. At the end of procedure, both guidewires were removed and final angiogram was performed that showed excellent stent expansion, SHARRON-3 flow and no residual stenosis. Guide catheter was removed and Angio-Seal was deployed to achieve hemostasis.. * Proximal Left Anterior Descending Coronary Artery: treated with AB TREK 2.50X12 RX BALLOON, MDT R ANYA 3.5X12 ABILIO, MDT R ANYA 3.0X8 ABILIO, and MDT NC EUPHORA RX [id number] BALLOON. * Mid Left Anterior Descending Coronary Artery: treated with AB TREK 2.50X12 RX BALLOON and MDT R ANYA 3.0X18 ABILIO. Conclusions 1. No significant disease noted in the Left Main, LAD, Circumflex, or RCA coronary arteries. 2. 60-year-old white female with multiple risk factors for coronary disease, presenting with increasing shortness of breath and chest pain. She had clinical features of a non-ST elevation myocardial infarction, complicated with mild congestive heart failure. For further evaluation of her coronary status, a cardiac catheterization was recommended. Patient underwent left and right coronary angiogram today. The findings are as follows. 3. Moderate calcification of the left main. 4. Around 60 to 70% segmental stenosis in the proximal LAD and another 80% tubular narrowing in the mid to distal LAD. Mild diffuse disease in the other vessels.Left dominant coronary circulation. Based on the angiogram findings, it was thought to be appropriate to consider PCI of the LAD lesions. I discussed and reviewed the cardiac catheterization data with Dr. Qursehi. Dr. Qureshi concurred with this plan and took over further management of this patient at this point. 5. Successful PCI of proximal LAD stenosis with ABILIO x 2 and of mid to distal LAD with ABILIO x 1. 6. Proximal Left Anterior Descending Coronary Artery was treated with two Balloon and two Drug Eluting Stent. 7. Mid Left Anterior Descending Coronary Artery was treated with Balloon and Drug Eluting Stent. Recommendations * Transfer back to [facility]. * Apsirin and Plavix for atleast 1 year. * High intensity statin therapy. * Beta valery as tolerated. * Aggressive risk factor modification. * Follow up with cardiology office in 7-10 days. Interventional RX Recommendation: PCI w/o planned CABG Diagnostic RX Recommendation: PCI w/o planned CABG Left Ventriculography Findings: * Ventriculography was not performed because of the difficulty in crossing the aortic valve. The subclavian artery and the ascending aorta were found to be very tortuous. Pressures Phase:Rest AO : 101 / 63 ( 79 ) @ 12:04:00 PM 119 / 67 ( 90 ) @ 12:29:00 PM 114 / 65 ( 87 ) @ 12:50:00 PM 109 / 64 ( 83 ) @ 1:13:00 PM 102 / 60 ( 77 ) @ 1:26:00 PM Clinical Evaluation EBL: 5mL-10mL Procedural Details Procedure Consent Obtained. Pre-Procedure Time Out. Identified patient by full name and date of as verbalized by the patient/guarantor. Does the consent match the physician's order: Yes. Accurate & Complete Informed Consent: Yes. Inpatient/Outpatient History & Physical on Chart: Yes. If H&P is completed, is and addenduem needed: No; If yes, is the addendum complete: N/A. Visualize and Verify Site with Patient/Guarantor: N/A. Relevant Radiology Images available: N/A. Pre-op teaching completed and patient verbalized understanding. The risks, benefits, and alternatives of sedation and/or procedure were discussed by physician. The patient agrees to continue. Procedure started. [facility] Clinical Fraility Score: 4: Vulnerable. Holistic Specialist Indications: ACS > 24 hours. Chest Pain Symptom Assessment: Typical Angina Symptoms. Cardiovascular Instability: No. Correct patient, site and procedure confirmed by cath team. PERRLA. Strong, equal hand vice president and portfolio manager bilaterally. Lungs clear x 5 lobes. IV Site on Arrival: 20 gauge in the right anticubital. IV Fluids: 0.9% NaCl at KVO. 0 mL infused prior to labor trainer. Pre Procedural Pulses: bilateral dorsalis pedis was Doppled. Pre Procedural Pulses: bilateral posterior tibial was Doppled. Pre Procedural Pulses: bilateral radial was 3+. Oxygen started at 2liters/min via nasal canula. bilateral groins was prepped with chloroprep then draped in the usual sterile fashion. right radial was prepped with chloroprep then draped in the usual sterile fashion. Physician notified. Baseline sample Acquired. HR: 81 BPM. Physician arrived. Equipment: 6F - Radial. Cardiac Cath Pack. ACIST Manifold Kit Model BT 2000. Heparinized Saline (2 units/mL), 1000 mL bag. Physician scrubbed in. Immediate Pre-Procedure Time Out. Correct Patient: Yes; Correct Procedure: Yes; Correct Site: Yes; Correct Patient Position: Yes; Correct Supplies: Yes; Dried Flammable Prep: Yes; Blood Products Available: N/A;. Lidocaine 1% infiltrated to the right radial. Arterial access obtained. A Terumo 5 Fr [place] Radial Catheter, 110cm was advanced over the wire and used for Left coronary angiography. Catheter removed over the exchange wire. A 5 spanish TIG catheter in over wire. Dr Qureshi arrived to look at pictures. Catheter redirected to the RCA. Catheter removed over the exchange wire. A CRD 6F 145 degree Pigtail 110cm Diagnostic Catheter was advanced over the wire and used for Ventriculography. Side port of sheath attached to Normal Saline flush at KVO to maintain patency. Dr. Qureshi scrubbed in to perform intervention. Inventory is CRD 6 FR XB 3.5 GUIDE. 6 spanish XB 3.5 guide catheter was inserted over the wire. Guide catheter out. 6 spanish XB 3.5 guide catheter was inserted over the wire. Guide catheter out. Unable to advance Guide catheter using radial approach. Physician moving to femoral approach. A TR Band was successful obtaining hemostatsis at the Right Radial artery insertion site. Arterial access obtained with micropuncture set. Lidocaine 1% infiltrated to the right groin. 6 spanish XB 3.5 guide catheter was inserted over the wire. Dr Waters and Dr Qureshi updated family. Runthrough guidewire was advanced through the guide catheter to lesion in the mid LAD. Unable to advance wire. Runthrough wire out. Guide catheter out. Inventory is CRD 6FR XB 3 GUIDE. 6 spanish XB 3 guide catheter was inserted over the wire. Runthrough guidewire was advanced through the guide catheter to lesion in the mid LAD. Inflation number : 1 A AB TREK 2.50X12 RX BALLOON was prepped and advanced across the Mid LAD , then inflated to 12 ERON for 0:14 seconds. Inflation number: 2 The AB TREK 2.50X12 RX BALLOON was reinflated across the Mid LAD, to 8 ERON for 0:17 seconds. Balloon out. Inventory is TR 180cm Runthrough NS extra floppy 0.014 wire. Runthrough guidewire was advanced through the guide catheter to lesion in the diaganol. Inflation number: 1 The AB TREK 2.50X12 RX BALLOON was reinflated across the Prox LAD, to 12 ERON for 0:15 seconds. Inflation number: 2 The AB TREK 2.50X12 RX BALLOON was reinflated across the Prox LAD, to 12 ERON for 0:13 seconds. Balloon out. Results checked. Inflation Number : 3 A MDT R ANYA 3.5X12 ABILIO -Lot Number# [id number] exp date 04/25/2022 was prepped and advanced across the Prox LAD. The stent was deployed at 14 ERON for 0:22 seconds. Stent balloon out over wire. Results checked. Wire out of diag. Inflation Number : 3 A MDT R ANYA 3.0X18 ABILIO -Lot Number#[id number] exp date 04/28/2022 was prepped and advanced across the Mid LAD. The stent was deployed at 12 ERON for 0:24 seconds. Inflation Number : 4 A MDT R ANYA 3.0X8 ABILIO -Lot Number# [id number] exp date 01/17/2022 was prepped and advanced across the Prox LAD. The stent was deployed at 12 ERON for 0:22 seconds. Inflation number: 5 The stent balloon was then re-inflated across the Prox LAD to 12 ERON for 0:05 seconds. Attempt to call family for update, no answer at this time. Inflation number : 6 A MDT NC EUPHORA RX [id number] BALLOON was prepped and advanced across the Prox LAD , then inflated to 16 ERON for 0:21 seconds. Stent balloon out over wire. Inflation number: 7 The MDT CALEB EUPHORA RX [id number] BALLOON was reinflated across the Prox LAD, to 16 ERON for 0:12 seconds. Balloon out. Wire out. Guide catheter out. Groin picture taken to check for placement of closure device. Groin picture taken to check for placement of closure device. A Angio-Seal VIP was successful obtaining hemostatsis at the Right Femoral artery insertion site. Sheath(s) removed and manual pressure held until hemostasis was achieved. Sterile 4x4 and Op-site applied to the puncture site. No oozing or hematoma noted. Post sheath removal instructions were given and the patient verbalized understanding. Post Procedure: Pulses reassessed and unchanged. PERRLA. Strong, equal hand vice president and portfolio manager bilaterally. No VTE prophylaxis required. Medication's Wasted: Lidocaine 1% = 2 mL. Medication's Wasted: Heparin = 2500 units. Medication's Wasted: Nitro = 49.4 mg. Medication's Wasted: Other = fentanyl 50 mcg. Total IV fluids: 350 mL. Contrast type used: Omnipaque 300 mgI/mL, 500 mL bottle. PCI Indication: NSTE. Post-op diagnosis: severe LAD disease. Complications: none. Estimated blood loss: 5mL-10mL. Procedure completed. Patient transferred by bed to 1st floor. Vital chart was stopped. Access Site Site: Right Radial artery Sheath Size: 6 Fr Hemostasis Method: TR Band Hemostasis Success: Successful Site: Right Femoral artery Sheath Size: 6 Fr Hemostasis Method: Angio-Seal VIP ([place]) Hemostasis Success: Successful Procedure Medications Start: 4:51 PM Stop: 4:51 PM Medication: Versed Amount: 1 mg Route: I.V. Start: 4:49 PM Stop: 4:49 PM Medication: Versed Amount: 1 mg Route: I.V. Start: 4:49 PM Stop: 4:49 PM Medication: Fentanyl Amount: 50 mcg Route: I.V. Start: 5:00 PM Stop: 5:00 PM Medication: Verapamil Amount: 5 mg Route: I.A. Start: 5:00 PM Stop: 5:00 PM Medication: Nitrogylcerin Amount: 200 mcg Route: I.A. Start: 5:01 PM Stop: 5:01 PM Medication: 0.9% Saline Amount: 250 ml Route: I.V. bolus Start: 5:04 PM Stop: 5:04 PM Medication: Heparin Amount: 1500 units Route: I.V. Start: 5:17 PM Stop: 5:17 PM Medication: Fentanyl Amount: 25 mcg Route: I.V. Start: 5:32 PM Stop: 5:32 PM Medication: Versed Amount: 0.5 mg Route: I.V. Start: 5:32 PM Stop: 5:32 PM Medication: Nitrogylcerin Amount: 200 mcg Route: I.A. Start: 5:46 PM Stop: 5:46 PM Medication: Versed Amount: 0.5 mg Route: I.V. Start: 6:19 PM Stop: 6:19 PM Medication: Versed Amount: 0.5 mg Route: I.V. Start: 6:24 PM Stop: 6:24 PM Medication: Versed Amount: 0.5 mg Route: I.V. Start: 6:25 PM Stop: 6:25 PM Medication: Nitrogylcerin Amount: 200 mcg Route: I.A. Start: 6:29 PM Stop: 6:29 PM Medication: Fentanyl Amount: 25 mcg Route: I.V. Start: 6:37 PM Stop: 6:37 PM Medication: Nitrogylcerin Amount: 200 mcg Route: I.C. Start: 6:44 PM Stop: 6:44 PM Medication: Fentanyl Amount: 25 mcg Route: I.V. Start: 6:19 PM Stop: 6:19 PM Medication: Fentanyl Amount: 25 mcg Route: I.V. Start: 6:51 PM Stop: 6:51 PM Medication: Plavix Amount: 300 mg Route: P.O. I, the attending physician, have reviewed and verified all procedure medications. Yes, all medications given per verbal order History/Risk Factors Hypertension: Yes Dyslipidemia: Yes Peripheral Arterial Disease (PAD): No Myocardial Infarction (NV): Yes Obesity: No Renal Disease: No Tobacco Use: Current/Recent(w/in 1 year) Prior Interventions PCI: No CABG: No Valve Surgery: No Report Signatures Interventional Workflow Finalized by Franklin Qureshi MD on 10/14/2020 06:10 PM Diagnostic Workflow Finalized by Dr Jayce Waters MD [facility] on 10/05/2020 10:46 PM
[2020-10-05 19:57] LABS: Glucose Point of Care 190 mg/dL (70-110)
[2020-10-05] MEDS: sodium chloride 0.9% 1,000 ML 100 ML IV (20:12)
[2020-10-06] VITALS (17 sets, daily range): BP systolic 102–133; BP diastolic 64–86; PULSE 60–83; RESP 14–26; TEMP 36.4–36.6; O2SAT 87–95
[2020-10-06] MEDS: levoFLOXacin 750 mg Tablet PO (05:50)
[2020-10-06] MEDS: morphine 4 mg/mL SDV 1 mL 2 MG IVP (05:56)
[2020-10-06 06:48] LABS: Glucose Point of Care 124 mg/dL (70-110)
[2020-10-06] MEDS: ipratropium-albuterol 3 mL Neb INHALATION ×2 (07:54→11:22)
[2020-10-06] MEDS: budesonide 0.5 mg/2 mL Neb INHALATION (07:54)
--- NOTE | 2020-10-06 08:31 | P.PN_ITS ---
Subjective Subjective: Interval history: The patient is feeling okay. She had the cardiac catheterization followed by PCI yesterday. For the details, refer to the cardiac catheterization report Medications: Reviewed: Yes Medication Review Details: Current Medications Acetaminophen (Acetaminophen 325 Mg Tablet) 650 mg PO Q6H PRN PRN Reason: Mild/Mod Pain Or Temp >/= 101 Last Admin: 10/03/20 08:23 Dose: 650 mg Documented by: Acetaminophen (Acetaminophen 325 Mg Tablet) 650 mg PO Q6H PRN PRN Reason: MILD PAIN Al Hydrox/Mg Hydrox/Simethicone (Sqps-Czq-Cfplcsvrr-Tangela 30 Ml Udc) 30 ml PO Q15M PRN PRN Reason: INDIGESTION Albuterol Sulfate (Albuterol 2.5 Mg/0.5 Ml Neb) 2.5 mg INHALATION Q4H.RESPIRATORY PRN PRN Reason: SHORTNESS OF BREATH Albuterol/Ipratropium (Ipratropium-Albuterol 3 Ml Neb) 3 ml INHALATION QID.RESPIRATORY MARY Last Admin: 10/06/20 07:54 Dose: 3 ml Documented by: Alprazolam (Alprazolam 0.25 Mg Tablet) 0.25 mg PO TID PRN PRN Reason: ANXIETY Last Admin: 10/03/20 13:45 Dose: 0.25 mg Documented by: Alprazolam (Alprazolam 0.25 Mg Tablet) 0.25 mg PO TID PRN PRN Reason: ANXIETY Amlodipine Besylate (Amlodipine 5 Mg Tablet) 2.5 mg PO DAILY MARY Last Admin: 10/05/20 08:07 Dose: 2.5 mg Documented by: Aspirin (Aspirin 81 Mg Ec Tablet) 81 mg PO DAILY MARY Last Admin: 10/05/20 08:06 Dose: 81 mg Documented by: Atorvastatin Calcium (Atorvastatin 40 Mg Tablet) 40 mg PO DAILY MARY Last Admin: 10/05/20 08:07 Dose: 40 mg Documented by: Atropine Sulfate (Atropine 1 Mg/Ml Sdv 1 Ml) 0.5 mg IVP PRN PRN PRN Reason: Symptomatic bradycardia Budesonide (Budesonide 0.5 Mg/2 Ml Neb) 0.5 mg INHALATION BID.RESPIRATORY MARY Last Admin: 10/06/20 07:54 Dose: 0.5 mg Documented by: Clopidogrel Bisulfate (Clopidogrel 75 Mg Tablet) 75 mg PO DAILY MARY Last Admin: 10/03/20 08:23 Dose: 75 mg Documented by: Clopidogrel Bisulfate (Clopidogrel 75 Mg Tablet) 75 mg PO DAILY [facility] Last Admin: 10/05/20 08:06 Dose: 75 mg Documented by: Dextrose (Dextrose 50% Syringe 50 Ml) 25 ml IVP ONCE PRN; Protocol PRN Reason: hypoglycemia protocol Dextrose (Dextrose 50% Syringe 50 Ml) 50 ml IVP PRN PRN; Protocol PRN Reason: hypoglycemia protocol Duloxetine HCl (Duloxetine 60 Mg Capsule) 60 mg PO BID [facility] Last Admin: 10/05/20 08:07 Dose: 60 mg Documented by: Glucagon (Glucagon 1 Mg/Ml Inj 1 Ml) 1 mg IM ONCE PRN; Protocol PRN Reason: Adult Acute Hypoglycemia Prot. Dextrose (D5w) 500 mls @ 100 mls/hr IV ONCE PRN; Protocol PRN Reason: Adult Acute Hypoglycemia Prot Sodium Chloride (Sodium Chloride 0.9%) 1,000 mls @ 100 mls/hr IV .Q10H [facility] Last Admin: 10/05/20 20:12 Dose: 100 mls/hr Documented by: Insulin Aspart (Insulin Aspart 100 Unit/1 Ml) 0 unit SUBCUT WM&BEDTIME [facility]; Protocol Last Admin: 10/06/20 07:02 Dose: Not Given Documented by: Levofloxacin (Levofloxacin 750 Mg Tablet) 750 mg PO DAILY@0600 [facility]; Protocol Stop: 10/09/20 10:29 Last Admin: 10/06/20 05:50 Dose: 750 mg Documented by: Magnesium Hydroxide (Magnesium Hydroxide 30 Ml Udc) 30 ml PO DAILY PRN PRN Reason: CONSTIPATION Metoprolol Tartrate (Metoprolol Tartrate 25 Mg Tablet) 25 mg PO BID@0900,2100 [facility] Last Admin: 10/05/20 20:35 Dose: 25 mg Documented by: Morphine Sulfate (Morphine 4 Mg/Ml Sdv 1 Ml) 2 mg IVP Q4H PRN PRN Reason: SEVERE PAIN Last Admin: 10/06/20 05:56 Dose: 2 mg Documented by: Naloxone HCl (Naloxone 0.4 Mg/Ml Sdv) 0.1 mg IVP Q2M PRN PRN Reason: RESPIRATORY RATE < 8/MIN Nicotine (Nicotine 21 Mg Patch) 1 patch TRANSDERMA DAILY [facility] Last Admin: 10/05/20 08:08 Dose: 1 patch Documented by: Nitroglycerin (Nitroglycerin 1 Gm/Inch Oint Pkt) 0.5 inch TOPICAL Q6H PRN PRN Reason: chest pain Nitroglycerin (Nitroglycerin 0.4 Mg Sublingual Tablet) 0.4 mg SUBLINGUAL Q5M PRN PRN Reason: CHEST PAIN Ondansetron HCl (Ondansetron 2 Mg/Ml Sdv 2 Ml) 4 mg IVP Q6H PRN PRN Reason: NAUSEA AND VOMITING Pantoprazole Sodium (Pantoprazole Dr 40 Mg Tablet) 40 mg PO DAILY [facility] Last Admin: 10/05/20 08:06 Dose: 40 mg Documented by: Prednisone (Prednisone 20 Mg Tablet) 40 mg PO DAILY [facility] Last Admin: 10/05/20 08:06 Dose: 40 mg Documented by: Pregabalin (Pregabalin 100 Mg Capsule) 200 mg PO TID [facility] Last Admin: 10/05/20 20:35 Dose: 200 mg Documented by: Temazepam (Temazepam 15 Mg Capsule) 15 mg PO BEDTIME PRN PRN Reason: INSOMNIA Vitals/I&O/Wt Last Vital Signs Temp 97.5 F L 10/06/20 07:12 Pulse 81 10/06/20 08:27 Resp 18 10/06/20 08:20 BP 115/81 10/06/20 07:12 Pulse Ox 95 10/06/20 08:20 10/05/20 10/06/20 10/06/20 22:59 06:59 14:59 Intake Total 1000 / 1480 150 / 1630 Balance 1000 / 1480 150 / 1630 Physical Exam Narrative: EXAM NARRATIVE: GENERAL: The patient is alert and oriented times three. Not in any acute distress. Morbidly obese. Short stature. HEENT: No significant pallor, icterus or lymphadenopathy. Morbidly obese. Oral cavity: There are no mucous membrane lesions. NECK: Trachea appears to be central. No masses noted. No JVD or thyromegaly appreciated. No carotid bruit. RESPIRATORY: Chest is symmetrical. No intercostals muscle retraction or any accessory muscle activation. There is no chest wall tenderness. Breath sounds are heard bilaterally. No rales or rhonchi heard. No evidence of any consolidation. BREASTS: Deferred. HEART: The PMI could not be palpated. First and second heart sounds are normal. No S3. S4 present. No significant murmurs. ABDOMEN: Abdomen is obese nontender no organomegaly. Bowel sounds are normally heard. : Deferred. RECTAL: Deferred. LYMPHATIC: No lymphadenopathy noted in the neck or groin. EXTREMITIES: Trace edema with no cyanosis. Peripheral pulses are felt in fairly good volume and amplitude MUSCULOSKELETAL: No acute joint deformities or swelling SKIN: There are no significant scars or skin rash noted. NEUROPSYCHIATRIC: The patient is alert and oriented x3. Appears to be in a good mood. The higher functions are grossly within normal limits. No tremors or rigidity noted. Const: COMMON NORMALS: alert Resp: COMMON NORMALS: clear to auscultation bilaterally (Scattered expiratory wheezing) AUSCULTATION: clear to auscultation bilaterally (Scattered expiratory wheezing) Neuro: SENSORIUM/ORIENTATION: Yes alert Data : 10/06/20 10:20 10/06/20 10:20 Other Labs: Laboratory Last Values WBC 16.7 10^3/uL (4.0-10.0) H 10/04/20 04:06 RBC 4.69 10^6/uL (4.1-5.3) 10/04/20 04:06 Hgb 14.2 g/dL (11.5-15.3) 10/04/20 04:06 Hct 44.7 % (37.0-47.0) 10/04/20 04:06 MCV 95.3 fL (81-99) 10/04/20 04:06 MCH 30.3 pg (28.0-34.0) 10/04/20 04:06 MCHC 31.8 g/dL (30.0-36.0) 10/04/20 04:06 RDW 12.2 % (12.1-15.1) 10/04/20 04:06 Plt Count 174 10^3/cmm (130-400) 10/04/20 04:06 MPV 13.3 fL (7.4-10.4) H 10/04/20 04:06 Neut % (Auto) 81.5 % 10/04/20 04:06 Lymph % (Auto) 11.7 % 10/04/20 04:06 [place] % (Auto) 6.0 % 10/04/20 04:06 Eos % (Auto) 0.0 % 10/04/20 04:06 Baso % (Auto) 0.2 % 10/04/20 04:06 Neut # (Auto) 13.62 10^3/uL (1.8-7.7) H 10/04/20 04:06 Lymph # (Auto) 2.0 10^3/uL (0.8-4.8) 10/04/20 04:06 [place] # (Auto) 1.0 10^3/uL (0.2-0.9) H 10/04/20 04:06 Eos # (Auto) 0.0 10^3/uL (0.0-0.8) 10/04/20 04:06 Baso # (Auto) 0.0 10^3/uL (0.0-0.1) 10/04/20 04:06 Nucleated RBC % (auto) 0 % 10/04/20 04:06 Nucleated RBCs # 0.0 /100WBC 10/04/20 04:06 PT 13.00 SECONDS (12.1-14.9) 10/02/20 18:05 INR 0.96 (0.8-1.2) 10/02/20 18:05 Specimen Type Arterial 10/02/20 21:10 Sample Site Radial, right 10/02/20 21:10 ABG pH 7.34 (7.35-7.45) L 10/02/20 21:10 ABG pCO2 52.0 mmHg (35-45) H 10/02/20 21:10 ABG pO2 120.0 mmHg (80.0-100.0) H 10/02/20 21:10 ABG HCO3 27.9 mmol/L (22-26) H 10/02/20 21:10 ABG Base Excess 0.9 mmol/L (-2.0-2.0) 10/02/20 21:10 Chucky Test Pos 10/02/20 21:10 Hematocrit 48.9 % (37-47) H 10/02/20 21:10 Hgb O2 Saturation 89.9 % (95-100) L 10/02/20 17:58 Carboxyhemoglobin 5.5 %THgb (0.4-20.1) 10/02/20 17:58 Methemoglobin 0.8 % (0.4-1.5) 10/02/20 17:58 Total Hemoglobin 16.6 g/dL (12-16) H 10/02/20 17:58 O2 Delivery Device Bipap 10/02/20 21:10 O2 Liters/Min 5.0 % 10/02/20 17:58 FiO2 35.0 % 10/02/20 21:10 Watch Electrician ID chey 10/02/20 21:10 Sodium 139 mmol/L (136-145) 10/04/20 04:06 Potassium 3.9 mmol/L (3.5-5.1) 10/04/20 04:06 Chloride 104 mmol/L (98-107) 10/04/20 04:06 Carbon Dioxide 27 mmol/L (22-29) 10/04/20 04:06 Anion Gap 11.9 (5-19) 10/04/20 04:06 BUN 17 mg/dL (8-23) 10/04/20 04:06 Creatinine 0.7 mg/dL (0.5-0.9) 10/04/20 04:06 GFR Calculation 84.8 mL/min (90-130) L 10/04/20 04:06 Glucose 165 mg/dL (65-115) H 10/04/20 04:06 POC Glucose 124 mg/dL (70-110) H 10/06/20 06:41 Estimat Average Glucose 209 10/04/20 04:06 Hemoglobin A1c 8.9 % (4.0-6.0) H 10/04/20 04:06 Calculated Osmolality 293 mOsm/kg (285-295) 10/04/20 04:06 Calcium 8.9 mg/dL (8.5-10.5) 10/04/20 04:06 Magnesium 1.8 mg/dL (1.7-2.3) 10/03/20 02:45 Total Bilirubin 0.3 mg/dL (0.15-1.2) 10/04/20 04:06 AST 35 U/L (0-32) H 10/04/20 04:06 ALT 34 U/L (0-33) H 10/04/20 04:06 Alkaline Phosphatase 69 IU/L (35-105) 10/04/20 04:06 Troponin T Baseline 20 ng/L (0-10) H 10/02/20 18:05 Troponin T 120 Minute 142.9 ng/L (0-10) H 10/02/20 20:25 Delta Troponin T 122.9 ABS# (0-10) H* 10/02/20 20:25 Troponin T Hi Sens 6Hr 172.0 ng/L (0-10) H 10/03/20 02:45 Troponin T Hi Sens 6Hr Delta 152 ng/L (0-12) H* 10/03/20 02:45 NT-Pro-B Natriuret Pep 90 pg/mL (0-125) 10/02/20 18:05 Total Protein 6.6 g/dL (6.6-8.7) 10/04/20 04:06 Albumin 3.8 g/dL (3.5-5.2) 10/04/20 04:06 Globulin 2.8 g/dL (1.3-4.6) 10/04/20 04:06 Triglycerides 274 mg/dL (0-150) H 10/03/20 02:45 Cholesterol 184 mg/dL (0-200) 10/03/20 02:45 LDL Cholesterol, Calc 103 mg/dL (50-129) 10/03/20 02:45 HDL Cholesterol 26 mg/dL (60-100) L 10/03/20 02:45 LDL/HDL Ratio 3.96 RATIO (0.00-3.22) H 10/03/20 02:45 Cholesterol/HDL Ratio 7.08 mg/dL (0.0-4.40) H 10/03/20 02:45 Procalcitonin 0.10 ng/mL (0-0.5) 10/04/20 04:06 TSH 0.23 uIU/mL (0.27-4.20) L 10/03/20 02:45 Free T4 0.99 ng/dL (0.82-1.77) 10/04/20 04:06 Free T3 2.5 PG/ML (2.0-4.4) 10/04/20 04:06 Influenza Type A Ag Negative (Negative) 10/04/20 15:50 Influenza Type B Ag Negative (Negative) 10/04/20 15:50 SARS-CoV-2 Ag (Rapid) Negative (Negative) 10/03/20 17:30 Micro: Microbiology 10/04/20 10:44 Blood Culture - Preliminary Blood NEGATIVE TO DATE 10/04/20 10:36 Blood Culture - Preliminary Blood NEGATIVE TO DATE A&P Assessment and plan (1) Non-ST elevated myocardial infarction (non-STEMI): Patient status post cardiac catheterization, status post PCI, currently seems to be stable if she continues to remain stable, may be discharged home from a cardiac standpoint. Will be [facility] next week by the nurse practitioner. I may see her in the office in 1 month. The repeat CBC and a BMP this morning is unremarkable Status: Acute (2) COPD exacerbation: Management as per the primary. According the patient, the breathing has significantly improved. Status: Resolved (3) Hyperlipidemia: Patient is on Lipitor. This may be continued. Status: Acute Qualifiers: Hyperlipidemia type: mixed hyperlipidemia Qualified Code(s): E78.2 - Mixed hyperlipidemia (4) Essential hypertension: Currently patient is normotensive. May continue on the current medi cation. 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 Aggressive treatment as per the primary Status: Acute Additional A&P Information Other medical problems are as outlined before. Attestations Medical Necessity Statement*: Possible discharge home today. Coding Level of Care Code Acute Crankshaft Grinder for Becky Townsend Diagnoses Non-ST elevated myocardial infarction (non-STEMI) I21.4 COPD exacerbation J44.1 Hyperlipidemia E78.2 Hyperlipidemia type: mixed hyperlipidemia Essential hypertension I10 Diabetes mellitus type 2 with neurological manifestations E11.49
[2020-10-06] MEDS: metoprolol tartrate 25 mg Tablet PO (08:36)
[2020-10-06] MEDS: nicotine 21 mg Patch 1 PATCH TRANSDERMA (08:36)
[2020-10-06] MEDS: pantoprazole DR 40 mg Tablet PO (08:37)
[2020-10-06] MEDS: aspirin 81 mg EC Tablet PO (08:37)
[2020-10-06] MEDS: atorvastatin 40 mg Tablet PO (08:37)
[2020-10-06] MEDS: pregabalin 100 mg Capsule 200 MG PO (08:37)
[2020-10-06] MEDS: clopidogrel 75 mg Tablet PO (08:38)
[2020-10-06] MEDS: amlodipine 5 mg Tablet 2.5 MG PO (08:38)
[2020-10-06] MEDS: predniSONE 20 mg Tablet 40 MG PO (08:39)
[2020-10-06] MEDS: duloxetine 60 mg Capsule PO (08:40)
--- NOTE | 2020-10-06 10:18 | P.DS_ITS ---
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 Initially her O2 requirements were up to 5 L/min, during course of admission this improved to 2 L/min. She was diagnosed initially with COPD exacerbation(does not appear to have been formally diagnosed in the past) and started on treatment with inhaled bronchodilators, inhaled steroids and systemic steroids. Subsequently she was also noted to have increasing troponin delta's, significant at 122 and 155 respectively at 2 and 6 hours. Diagnosed with an NSTEMI. No signs of CHF. Echocardiogram shows mild diffuse hypokinesia of the LV apex, EF is around 55%, thickened aortic and mitral valves. Underwent left heart catheterization on October 05, 2020 and had placement of 3 stents. For details please see cardiology note. She feels significantly improved after stent placement. Her chest pain is resolved. States her dyspnea is much improved. She is being discharged today in stable condition. Prescriptions provided for aspirin, Plavix, carvedilol changed to metoprolol, losartan discontinued and started on amlodipine 2.5 mg p.o. daily. Overall per clinical presentation suspect patient has underlying COPD which could explain her new oxygen requirement, pulmonary function test arranged as outpatient, CC results to her PCP Dr. Walter. Advair and as needed albuterol prescriptions have additionally been provided. Physical Exam Narrative: EXAM NARRATIVE: GEN: Awake, alert and oriented, no acute distress CVS: S1S2 N RS: CTA B/L Abd: Soft, nt/nd , bs+ CAN SORTER: no focal neuro deficits Discharge Data Data Completed and Pending: Completed Studies During Hospitalization Category Date Time Status CT angio chest PE protcl [id number] Urge nt Cat Scan 10/02/20 21:13 Completed XR chest 1V winter ble [id number] Urgent Exams 10/02/20 17:45 Completed CV echo complete* [id number] Routine Ultrasound 10/03/20 13:06 Completed Pending at discharge Category Date Time Status AIRCRAFT LOG CLERK request for service Routin e Exams 10/05/20 16:30 Taken Blood Culture Sta t Lab 10/04/20 10:44 Results Complete Blood Co unt w/Auto Stat Lab 10/06/20 10:01 Ordered Comprehensive Met abolic Panel Stat Lab 10/06/20 10:00 Ordered Labs from last 24 hours 10/06/20 10/05/20 10/05/20 06:41 19:19 10:38 POC Glucose 124 H 190 H 191 H Imaging^: CTA Chest: Radiologist's impression: Laboratory Results WBC 11.5 10^3/uL (4.0 -10.0) H 10/06/20 10:20 RBC 4.69 10^6/uL (4.1 -5.3) 10/06/20 10:20 Hgb 14.2 g/dL (11.5-1 5.3) 10/06/20 10:20 Hct 45.0 % (37.0-47.0 ) 10/06/20 10:20 MCV 95.9 fL (81-99) 10/06/20 10:20 MCH 30.3 pg (28.0-34. 0) 10/06/20 10:20 MCHC 31.6 g/dL (30.0-3 6.0) 10/06/20 10:20 RDW 12.3 % (12.1-15.1 ) 10/06/20 10:20 Plt Count 142 10^3/cmm (130 -400) 10/06/20 10:20 MPV 13.3 fL (7.4-10.4 ) H 10/06/20 10:20 Neut % (Auto) 64.1 % 10/06/20 10:20 Lymph % (Auto) 27.0 % 10/06/20 10:20 [place] % (Auto) 7.7 % 10/06/20 10:20 Eos % (Auto) 0.5 % 10/06/20 10:20 Baso % (Auto) 0.3 % 10/06/20 10:20 Neut # (Auto) 7.36 10^3/uL (1.8 -7.7) 10/06/20 10:20 Lymph # (Auto) 3.1 10^3/uL (0.8- 4.8) 10/06/20 10:20 [place] # (Auto) 0.9 10^3/uL (0.2- 0.9) 10/06/20 10:20 Eos # (Auto) 0.1 10^3/uL (0.0- 0.8) 10/06/20 10:20 Baso # (Auto) 0.0 10^3/uL (0.0- 0.1) 10/06/20 10:20 Nucleated RBC % (a uto) 0 % 10/06/20 10:20 Nucleated RBCs # 0.0 /100WBC 10/06/20 10:20 PT 13.00 SECONDS (12 .1-14.9) 10/02/20 18:05 INR 0.96 (0.8-1.2) 10/02/20 18:05 Specimen Type Arterial 10/02/20 21:10 Sample Site Radial, right 10/02/20 21:10 ABG pH 7.34 (7.35-7.45) L 10/02/20 21:10 ABG pCO2 52.0 mmHg (35-45) H 10/02/20 21:10 ABG pO2 120.0 mmHg (80.0- 100.0) H 10/02/20 21:10 ABG HCO3 27.9 mmol/L (22-2 6) H 10/02/20 21:10 ABG Base Excess 0.9 mmol/L (-2.0- 2.0) 10/02/20 21:10 Chucky Test Pos 10/02/20 21:10 Hematocrit 48.9 % (37-47) H 10/02/20 21:10 Hgb O2 Saturation 89.9 % (95-100) L 10/02/20 17:58 Carboxyhemoglobin 5.5 %THgb (0.4-20 .1) 10/02/20 17:58 Methemoglobin 0.8 % (0.4-1.5) 10/02/20 17:58 Total Hemoglobin 16.6 g/dL (12-16) H 10/02/20 17:58 O2 Delivery Device Bipap 10/02/20 21:10 O2 Liters/Min 5.0 % 10/02/20 17:58 FiO2 35.0 % 10/02/20 21:10 Child Care Teacher ID chey 10/02/20 21:10 Sodium 139 mmol/L (136-1 45) 10/06/20 10:20 Potassium 3.6 mmol/L (3.5-5 .1) 10/06/20 10:20 Chloride 103 mmol/L (98-10 7) 10/06/20 10:20 Carbon Dioxide 29 mmol/L (22-29) 10/06/20 10:20 Anion Gap 10.6 (5-19) 10/06/20 10:20 BUN 14 mg/dL (8-23) 10/06/20 10:20 Creatinine 0.8 mg/dL (0.5-0. 9) 10/06/20 10:20 GFR Calculation 72.7 mL/min (90-1 30) L 10/06/20 10:20 Glucose 176 mg/dL (65-115 ) H 10/06/20 10:20 POC Glucose 190 mg/dL (70-110 ) H 10/06/20 11:35 Estimat Average Gl ucose 209 10/04/20 04:06 Hemoglobin A1c 8.9 % (4.0-6.0) H 10/04/20 04:06 Calculated Osmolal ity 293 mOsm/kg (285- 295) 10/06/20 10:20 Calcium 8.7 mg/dL (8.5-10 .5) 10/06/20 10:20 Magnesium 1.8 mg/dL (1.7-2. 3) 10/03/20 02:45 Total Bilirubin 0.2 mg/dL (0.15-1 .2) 10/06/20 10:20 AST 29 U/L (0-32) 10/06/20 10:20 ALT 60 U/L (0-33) H 10/06/20 10:20 Alkaline Phosphata se 68 IU/L (35-105) 10/06/20 10:20 Troponin T Baselin e 20 ng/L (0-10) H 10/02/20 18:05 Troponin T 120 Min pradeep 142.9 ng/L (0-10) H 10/02/20 20:25 Delta Troponin T 122.9 ABS# (0-10) H* 10/02/20 20:25 Troponin T Hi Sens 6Hr 172.0 ng/L (0-10) H 10/03/20 02:45 Troponin T Hi Sens 6Hr Delta 152 ng/L (0-12) H* 10/03/20 02:45 NT-Pro-B Natriuret Pep 90 pg/mL (0-125) 10/02/20 18:05 Total Protein 6.2 g/dL (6.6-8.7 ) L 10/06/20 10:20 Albumin 3.6 g/dL (3.5-5.2 ) 10/06/20 10:20 Globulin 2.6 g/dL (1.3-4.6 ) 10/06/20 10:20 Triglycerides 274 mg/dL (0-150) H 10/03/20 02:45 Cholesterol 184 mg/dL (0-200) 10/03/20 02:45 LDL Cholesterol, C alc 103 mg/dL (50-129 ) 10/03/20 02:45 HDL Cholesterol 26 mg/dL (60-100) L 10/03/20 02:45 LDL/HDL Ratio 3.96 RATIO (0.00- 3.22) H 10/03/20 02:45 Cholesterol/HDL Ra domitila 7.08 mg/dL (0.0-4 .40) H 10/03/20 02:45 Procalcitonin 0.10 ng/mL (0-0.5 ) 10/04/20 04:06 TSH 0.23 uIU/mL (0.27 -4.20) L 10/03/20 02:45 Free T4 0.99 ng/dL (0.82- 1.77) 10/04/20 04:06 Free T3 2.5 PG/ML (2.0-4. 4) 10/04/20 04:06 Influenza Type A A g Negative (Negati ve) 10/04/20 15:50 Influenza Type B A g Negative (Negati ve) 10/04/20 15:50 SARS-CoV-2 Ag (Rap id) Negative (Negati ve) 10/03/20 17:30 Impressions Chest X-Ray 10/02/20 17:45 IMPRESSION: No active disease. Chest CTA 10/02/20 21:13 IMPRESSION: 1. There is no evidence for pulmonary emboli. 2. 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 There is no evidence for dissection or extravasation. 3. Minimal right basilar atelectasis versus parenchymal pleural scarring. 4. Fatty infiltration the liver Radiation Dose CTDIVOL = (mGy): DLP = 617.12 (mGy-cm) ADDENDUM: 10/03/20 0005 CRITICAL RESULT: THIS REPORT CONTAINS FINDINGS THAT MAY BE CRITICAL TO PATIENT CARE. The findings were verbally communicated via telephone conference with CARLEY Ross at 12:03 AM TOOL POLISHING MACHINE OPERATOR on 10/03/2020. The findings were acknowledged and understood. Radiation Dose CTDIVOL = (mGy): DLP = 617.12 (mGy-cm) Vitals: Last Vital Signs Temp 97.5 F L 10/06/20 07:12 Pulse 81 10/06/20 08:27 Resp 18 10/06/20 08:20 BP 115/81 10/06/20 07:12 Pulse Ox 95 10/06/20 08:20 Discharge Plan Discharge Patient Disposition: Home Condition: Stable Prescriptions: New clopidogrel 75 mg Tablet 75 mg PO DAILY 30 Days Qty: 30 RF: 0 amlodipine 5 mg Tablet 2.5 mg PO DAILY 30 Days Qty: 30 RF: 0 aspirin 81 mg Tablet,Delayed Release (Dr/Ec) 81 mg PO DAILY 30 Days Qty: 30 RF: 0 pantoprazole 40 mg Tablet,Delayed Release (Dr/Ec) 40 mg PO DAILY 30 Days Qty: 30 RF: 0 metoprolol tartrate 25 mg Tablet 25 mg PO BID@0900,2100 30 Days Qty: 60 RF: 0 Advair Diskus 250-50 mcg/dose blister with device 1 inh inhalation BID Qty: 60 RF: 0 Continued multivitamin Capsule 1 cap PO DAILY RF: 0 cholecalciferol (vitamin D3) 25 mcg (1,000 unit) capsule 25 mcg PO DAILY RF: 0 cyanocobalamin (vitamin B-12) [Vitamin B-12] 5,000 mcg tablet, sublingual 5,000 mcg SUBLINGUAL DAILY RF: 0 Chantix Starting Month Box 0.5 mg (11)- 1 mg (42) tablets,dose pack See Rx Instructions PO PER PKG DIR Qty: 53 RF: 0 duloxetine 60 mg capsule,delayed release(DR/EC) 60 mg PO BID Qty: 4 RF: 0 pregabalin [Lyrica] 200 mg capsule 200 mg PO TID Qty: 6 RF: 0 alendronate [Fosamax] 70 mg tablet 70 mg PO .once weekly Qty: 12 RF: 0 Victoza 2-Jack 0.6 mg/0.1 mL (18 mg/3 mL) pen injector See Rx Instructions SUBCUT .COMPLEX Qty: 6 RF: 3 albuterol sulfate 90 mcg/actuation HFA aerosol inhaler 2 inh INHALATION Q4H PRN (Reason: shortness of breath or wheezing) Qty: 6.7 RF: 0 Changed atorvastatin 20 mg tablet 40 mg PO DAILY Qty: 30 RF: 1 Discontinued meloxicam [Mobic] 15 mg tablet 15 mg PO DAILY Qty: 30 RF: 0 carvedilol 3.125 mg tablet 3.125 mg PO BID Qty: 60 RF: 0 losartan 25 mg tablet 25 mg PO DAILY Qty: 30 RF: 0 Discharge Orders: Discharge Order (Routine); Ordered 10/06/20 Ordered By: Saba Ferrer Other Ambulatory Orders: DME: Oxygen (Order) Location: None Selected Ordered By: Saba Ferrer Pulmonary Function Screen with Bronchodilator (Routine) Timeframe: 1 Week Facility: [facility] - Location: Respiratory Therapy Ordered By: Saba Ferrer Referrals: Jayce Waters MD [Physician] - 11/14/20 2:00 pm (You have a cardiology follow up with Dr. Waters at [facility] on November 14 at 2:00pm ) Lilliam Walter DO [Primary Care Provider] - 10/17/20 1:00 pm (You have a hospital followup with Dr. Walter at [facility] on October 17 at 1:00pm) Traci Mcdonald FNP [Nurse Practitioner] - 10/13/20 10:30 am (You have a post cardiac cath follow up with JOLENE Zapien at [facility] on October 13 at 10:30am) Discharge Diet: Cardiac, Diabetic, Low Salt, Low Cholesterol and Low Fat Discharge Activity: Increase activity as tolerated Patient Instructions: Metoprolol (By mouth), Aspirin (By mouth), Amlodipine (By mouth), Clopidogrel (By mouth), Pantoprazole (By mouth), Fluticasone/Salmeterol (By breathing), Left Heart Catheterization (DC) Discharge Attestations Time Spent in Discharge Care*: greater than 30 min Specific Discharge Activities: educating patient, educating and/or supporting family/caregiver, discussing with case therapist/social workers/dc planners and documenting/other paperwork Quality Metrics Clinical Quality Measures During this hospital stay, did patient experience: AMI Clinical Trial Participant: No Contraindication to aspirin (AMI): Aspirin given Contraindication to statin: Statin prescribed Contraindication to PCI: PCI performed
[2020-10-06 10:59] LABS: Basophils % 0.3 %; Eosinophils # 0.1 10^3/uL (0.0-0.8); Eosinophils % 0.5 %; Hemoglobin 14.2 g/dL (11.5-15.3); Lymphocytes # 3.1 10^3/uL (0.8-4.8); Mean Corpuscular HGB Conc 31.6 g/dL (30.0-36.0); Mean Corpuscular Hemoglobin 30.3 pg (28.0-34.0); Mean Corpuscular Volume 95.9 fL (81-99); Mean Platelet Volume 13.3 fL (7.4-10.4); Monocytes # 0.9 10^3/uL (0.2-0.9); Monocytes % 7.7 %; Neutrophils # 7.36 10^3/uL (1.8-7.7); Neutrophils % 64.1 %; Nucleated Red Blood Cells % 0 %; Platelet Count 142 10^3/cmm (130-400); Red Blood Count 4.69 10^6/uL (4.1-5.3); Red Cell Distribution Width 12.3 % (12.1-15.1); White Blood Count 11.5 10^3/uL (4.0-10.0)
[2020-10-06 11:22] LABS: Alanine Aminotransferase 60 U/L (0-33); Albumin Level 3.6 g/dL (3.5-5.2); Alkaline Phosphatase 68 IU/L (35-105); Anion Gap 10.6 (5-19); Aspartate Amino Transferase 29 U/L (0-32); Blood Urea Nitrogen 14 mg/dL (8-23); Calcium 8.7 mg/dL (8.5-10.5); Carbon Dioxide 29 mmol/L (22-29); Chloride 103 mmol/L (98-107); Globulin 2.6 g/dL (1.3-4.6); Glomerular Filtration Rate 72.7 mL/min (90-130); Glucose 176 mg/dL (65-115); Osmolality Calculated 293 mOsm/kg (285-295); Potassium 3.6 mmol/L (3.5-5.1); Sodium 139 mmol/L (136-145); Total Bilirubin 0.2 mg/dL (0.15-1.2); Total Protein 6.2 g/dL (6.6-8.7)
[2020-10-06 11:24] LABS: Slide Review Slide Review Perform
[2020-10-06 11:41] LABS: Glucose Point of Care 190 mg/dL (70-110)
--- NOTE | 2020-10-06 12:12 | PC.PT ---
Contacted nursing RE physical therapy evaluation on patient, nursing states patient being discharged home today by physician, and is safely independent with all transfers and ambulation and has been walking in the halls, and has no needs regarding physical therapy evaluation at this time.
== END 2020-10-06 12:45 | disposition home or self-care (01) | DRG 246 ==
LOC: ER 22:19 → CSU 23:10
PROVIDERS: Emergency Medicine; Internal Medicine; Internal Medicine Cardiovascular Disease; Admitting Provider Internal Medicine; Emergency Provider Emergency Medicine; PCP Family Medicine; Visit Provider Student in an Organized Health Care Education/Training Program
PROC: 027036Z Dilation of Coronary Artery, One Artery with Three Drug-eluting Intraluminal Devices, Percutaneous Approach (ICD-10-PCS; principal; 2020-10-05 16:30)
DX: I21.4 Non-ST elevation (NSTEMI) myocardial infarction (principal); J96.02 Acute respiratory failure with hypercapnia; J96.01 Acute respiratory failure with hypoxia; J44.1 Chronic obstructive pulmonary disease with (acute) exacerbation; F17.210 Nicotine dependence, cigarettes, uncomplicated; E11.42 Type 2 diabetes mellitus with diabetic polyneuropathy; E11.49 Type 2 diabetes mellitus with other diabetic neurological complication; F32.9 Major depressive disorder, single episode, unspecified; I10 Essential (primary) hypertension; E78.2 Mixed hyperlipidemia; Z78.0 Asymptomatic menopausal state; Z82.49 Family history of ischemic heart disease and other diseases of the circulatory system; Z79.51 Long term (current) use of inhaled steroids; Z79.4 Long term (current) use of insulin
CPT/HCPCS: 36415; 36416; 36600; 51702; 71045; 71275; 80048; 80053; 80061; 82803; 82805; 82962; 83036; 83735; 83880; 84145; 84439; 84443; 84481; 84484; 85025; 85610; 87040; 87426; 87804; 93005; 93306; 93454; 94640; 94660; 94664; 96372; 96374; 96375; 99291; C1725; C1760; C1769; C1874; C1887; C1894; C9600; J1644; J1650; J1815; J2060; J2250; J2270; J2930; J3010; J3490; J7030; J7512; J7626; Q0163; Q9967

== ENCOUNTER 2020-10-12 13:33 | Outpatient (CLI) | payer MEDICARE, SELFPAY ==
--- NOTE | 2020-10-12 14:20 | PFTS_ITS ---
Date of Study:10/12/20 Date of Dictation: 10/14/2020 MECHANICS: Postbronchodilator forced vital capacity (FVC) is reduced 63%. Postbronchodilator forced expiratory volume in one second (FEV1) is moderately reduced 58%. FEV1/FVC is reduced corrected after bronchodilation. There is significant response to bronchodilators. FLOW VOLUME LOOP: Sloping of expiratory limb suggestive of airway obstruction.. LUNG VOLUMES: Not measured DIFFUSING CAPACITY FOR CARBON MONOXIDE: Not measured . INTERPRETATION: The spirometry consistent with moderate obstructive ventilatory defect. There is significant response to bronchodilators. Lung volumes and gas transfer were not measured. Please correlate clinically. MTDD
== END 2020-10-12 13:34 | disposition home or self-care (01) ==
LOC: RT 13:35
PROVIDERS: PCP Family Medicine; Visit Provider Student in an Organized Health Care Education/Training Program
DX: J44.1 Chronic obstructive pulmonary disease with (acute) exacerbation (principal); J96.01 Acute respiratory failure with hypoxia; J96.02 Acute respiratory failure with hypercapnia
CPT/HCPCS: 94060; J7611

== ENCOUNTER → 2020-10-13 16:12 | Outpatient (BNVA) | payer MEDICARE, SELFPAY | PROVIDERS: PCP Family Medicine; Visit Provider Nurse Practitioner Family | DX: I21.4 Non-ST elevation (NSTEMI) myocardial infarction (principal) | CPT/HCPCS: 84484 ==

== ENCOUNTER → 2020-10-26 14:49 | Outpatient (BNVA) | payer MEDICARE, SELFPAY | PROVIDERS: PCP Family Medicine; Visit Provider Internal Medicine | DX: E11.49 Type 2 diabetes mellitus with other diabetic neurological complication (principal); E55.9 Vitamin D deficiency, unspecified; J44.9 Chronic obstructive pulmonary disease, unspecified; M85.89 Other specified disorders of bone density and structure, multiple sites; R61 Generalized hyperhidrosis; R63.5 Abnormal weight gain; Z72.0 Tobacco use | CPT/HCPCS: 99215 ==

== ENCOUNTER → 2021-01-23 00:01 | Outpatient (BNVA) | payer MEDICARE, SELFPAY | PROVIDERS: PCP Family Medicine; Visit Provider Family Medicine | DX: Z01.89 Encounter for other specified special examinations (principal) | CPT/HCPCS: 80053; 80061; 82043; 83036 ==

== ENCOUNTER → 2021-01-23 10:46 | Outpatient (BNVA) | payer MEDICARE, SELFPAY | PROVIDERS: PCP Family Medicine; Visit Provider Family Medicine | DX: E11.42 Type 2 diabetes mellitus with diabetic polyneuropathy (principal); E11.49 Type 2 diabetes mellitus with other diabetic neurological complication | CPT/HCPCS: 80053; 80061; 82043; 83036 ==

== ENCOUNTER → 2021-02-16 12:00 | Outpatient (BNVA) | payer MEDICARE, SELFPAY | PROVIDERS: PCP Family Medicine; Visit Provider Internal Medicine Cardiovascular Disease | DX: Z01.818 Encounter for other preprocedural examination (principal); Z20.822 Contact with and (suspected) exposure to COVID-19; J44.9 Chronic obstructive pulmonary disease, unspecified; J96.12 Chronic respiratory failure with hypercapnia | CPT/HCPCS: 87635 ==

== ENCOUNTER → 2021-07-03 13:59 | Outpatient (BNVA) | payer MEDICARE, SELFPAY | PROVIDERS: PCP Family Medicine; Visit Provider Family Medicine | DX: J44.9 Chronic obstructive pulmonary disease, unspecified (principal); Z76.89 Persons encountering health services in other specified circumstances; E11.42 Type 2 diabetes mellitus with diabetic polyneuropathy; B02.9 Zoster without complications; E11.49 Type 2 diabetes mellitus with other diabetic neurological complication; F17.219 Nicotine dependence, cigarettes, with unspecified nicotine-induced disorders; I10 Essential (primary) hypertension; I25.119 Atherosclerotic heart disease of native coronary artery with unspecified angina pectoris; R49.0 Dysphonia | CPT/HCPCS: 80053; 80061; 83036; 84443; 85025 ==

== ENCOUNTER → 2021-07-06 13:08 | Outpatient (BNVA) | payer MEDICARE, SELFPAY | PROVIDERS: PCP Family Medicine; Visit Provider Otolaryngology | DX: Z20.822 Contact with and (suspected) exposure to COVID-19 (principal) | CPT/HCPCS: 87635 ==

== ENCOUNTER 2021-07-12 07:35 | Day surgery (SDC) | payer MEDICARE, SELFPAY ==
[2021-07-11 10:04] VITALS: BMI 33.0
--- NOTE | 2021-07-11 10:24 | SUR.PREOP ---
Called Dr. William office and left message for nurse regarding patient still taking plavix.
[2021-07-12] VITALS (16 sets, daily range): BP systolic 82–143; BP diastolic 52–83; PULSE 72–85; RESP 14–24; TEMP 36.1–36.6; O2SAT 90–96
[2021-07-12 08:22] LABS: Glucose Point of Care 191 mg/dL (70-110)
[2021-07-12] MEDS: sodium chloride 0.9% 1,000 ML 30 ML IV (08:26)
--- NOTE | 2021-07-12 08:27 | W.PM.OPSUD ---
Surgery/Procedure H&P Update DATE OF PROCEDURE: July 12, 2021 DATE H&P PERFORMED: 07/04/21 H&P UPDATE INFORMATION: I have reviewed H&P completed within last 30 days, I have examined patient prior to procedure and No changes to prior documentation PREOP DIAGNOSIS: Chronic hoarseness/bilateral true vocal cord masses PLANNED PROCEDURE: Operation Date: 07/12/21 08:25 Proposed Procedures p Direct Laryngoscopy w/ biopsy [id number] J38.3(Not Applicable) - Piter William MD
[2021-07-12] MEDS: midazolam 1 mg/mL INJ 2 mL 2 MG IVP (08:30)
--- NOTE | 2021-07-12 08:33 | ANES.PREANE2 ---
Pre-Anesthetic Assessment Pre-Anesthetic Assessment: Height/Weight: Height 1.55 m Weight 79.379 kg Temp Pulse Resp BP Pulse Ox 97 F L 79 16 143/83 90 07/12/21 07:57 07/12/21 07:57 07/12/21 07:57 07/12/21 07:57 07/12/21 07:57 Preop Diagnosis: Chronic hoarseness/bilateral true vocal cord masses Proposed Procedure: Operation Date: 07/12/21 08:25 Proposed Procedures p Direct Laryngoscopy w/ biopsy [id number] J38.3(Not Applicable) - Piter William MD Was Beta Shivani taken within 24 hours: Yes Was Clonidine taken within 24 hours: N/A Last intake: Intake Last Liquid Date 07/11/21 Last Liquid Time 23:00 Last Solid Date 07/11/21 Last Solid Time 20:00 Social: Social History: Tobacco and No alcohol Exam: Pre-Anes Outpt Exam: alert, oriented x 3 and regular rate & rhythm Additional Exam Findings (including area of procedure): rhonchi Airway: Submandibular: WNL Cervical ROM: WNL MP: 2 Additional comments: Very hoarse Pulmonary: Pulmonary: COPD CV/HEM: CV/HEM: CAD (StentsX3), HTN and RI Metabolic: Metabolic: DM and Hyperlipidemia Neuropsych: Neuropsych: Neuropathy Anesthetic Plan: ASA status: 3 Anesthesia: General Risk of > 500 ml blood loss (7ml/kg in children): No Meds/Allergies Current Medications: Current Medications Generic Name Dose Route Start Last Admin Trade Name Freq PRN Reason Stop Dose Admin Sodium Chloride 1,000 mls @ 30 ml s/hr 07/12/21 07:45 07/12/21 08:26 Sodium Chloride 0.9% IV 07/13/21 07:44 30 mls/hr .Q24H MARY Administration Midazolam HCl 2 mg 07/12/21 07:41 07/12/21 08:30 Midazolam 1 Mg/M l Inj 2 Ml IVP 2 mg Q5M PRN Administration Preop Anxiety PFSH Anesthesia PFSH: Medical History Atherosclerosis of coronary artery Depression Diabetes mellitus type 2 with neurological manifestations Diabetic neuropathy Essential hypertension Hyperhidrosis Hyperlipidemia Surgical menopause Surgical History H/O: hysterectomy History of appendectomy History of bladder surgery Hx of cholecystectomy Presence of stent in LAD coronary artery Family History Mother CAD (coronary artery disease) Stroke Dementia Grandfather Cancer mouth Sister Cancer skin Anesthesia complication Lung disease Brother CAD (coronary artery disease) She has 11 siblings. 2 of her brothers had myocardial infarction in their late 40s. Chronic kidney disease (CKD) Sister COPD (chronic obstructive pulmonary disease) Lung disease Family/Other Diabetes Denies family history of Clotting disorder Suicide Bleeding disorder Social History Quit status (tobacco): considering quitting Second hand smoke exposure: Yes Smoking risk assessment/counseling performed?: Yes Alcohol intake: current Alcohol intake frequency: holidays/special occasions only Lives independently: Yes Household members: significant other Marital status: Life Partner Current occupational status: disabled Pets and animals: Yes History of recent travel: No Current gender identity: Female Data Anesthesia Other Labs: Laboratory Results - last 48 hr 07/12/21 08:16 POC Glucose 191 H Cardiac Studies: No Data to Display
[2021-07-12] MEDS: clindamycin 600 MG/50 ML PREMIX 100 MG IV (08:38)
[2021-07-12] MEDS: EPINEPHrine 1 mg/mL INJ XX ×2 (09:08→09:17)
--- NOTE | 2021-07-12 09:25 | PM.OP ---
Operative Report Date of procedure: July 12, 2021 Pre-op Diagnosis: Chronic hoarseness/bilateral true vocal cord masses Post-op diagnosis: same Post-op Findings: Significant multilobulated polypoid growths from both vocal cords removed in piecemeal fashion. Procedure Done: Direct microscopic suspension laryngoscopy with excision of bilateral true vocal cord masses. Specimens removed/disposition: Bilateral true vocal cord masses excised and sent for permanent section pathology. Surgeon: Piter William Anesthesia: General Estimated blood loss (mL): 10 Complications: No complications noted Findings: Bilateral multilobulated white mucosal covered masses from anterior commissure to arytenoids bilaterally. Condition: stable Disposition: PACU Brief History: 61-year-old female patient with progressive hoarseness found to have significant bilateral vocal cord edematous polypoid growths. These were completely preventing vocalization. Being brought to the operating room at this time to undergo excision of these lesions with direct suspension microscopic laryngoscopy. The procedure its risks and complications were explained in detail. Informed consent was granted. Risks included bleeding infection numbness scarring swelling recurrence need for additional treatment persistent hoarseness or voice change and more serious risk such as heart attack or stroke or not surviving the surgery. With these things understood informed consent was granted. Consent was witnessed. Procedure: Description of procedure: The patient was placed on the operating table in the supine position. Adequate general endotracheal tube anesthesia was obtained. The table was rotated 90 degrees. The head was dropped 15 degrees to the horizontal. The eyes were taped shut and head drape was applied in usual fashion. A timeout was accomplished identifying the patient date of plan procedure allergies fire risk and medications given. With all in agreement the procedure continued. An anterior commissure laryngoscope was inserted using a mouth or tooth guard over the upper gingiva. With the laryngoscope in proper position visualizing the vocal cords and the endotracheal tube the scope was suspended from a Rawls stand. Then using a microscope with a 400 lens the larynx was visualized and after inspection cup forceps were used to remove the polypoid tissue from the right true vocal cord first. Multiple pieces were removed. Then a similar procedure was performed to remove the masses from the left true vocal cord. After removal of all abnormal appearing tissue the areas were treated with cottonoids soaked in 1-1000 epinephrine. With good bleeding control the area was suctioned and an LTA with 2% lidocaine was applied to the larynx and glottis. The patient was given IV Ancef before the procedure and given IV Decadron to help with postoperative edema. The patient tolerated the procedure well had an estimated blood loss of 10 mL and was taken to recovery in stable condition.
[2021-07-12] MEDS: sodium chloride 0.9% 500 ML 999 ML IV (10:10)
--- NOTE | 2021-07-12 10:11 | PC.NURSE ---
Dr Kay ordered to give 500 ml bolus for low BP in PACU. Another bag of saline hung. Patient still sedated with airway in place. MAsk @ 10 L. 94 %.
[2021-07-12] MEDS: albumin 12.5 GM/250 ML VIAL IV (10:18)
--- NOTE | 2021-07-12 14:15 | ANE.PACU2 ---
Inpatient post-anesthesia follow up: Airway intact: Yes Vital signs: Temperature 97.9 F Pulse Rate 82 Respiratory Rate 16 Blood Pressure 124/65 Pulse Oximetry 95 Oxygen Delivery Me thod Nasal Cannula Oxygen Flow Rate 2.0 Fraction of Inspir ed Oxygen Hydration adequate: Yes Nausea and vomiting: No Pain level: 2 Mental status: Baseline
== END 2021-07-12 11:25 | disposition home or self-care (01) ==
PROVIDERS: PCP Family Medicine; Visit Provider Otolaryngology
PROC: 0CJS8ZZ Inspection of Larynx, Via Natural or Artificial Opening Endoscopic (ICD-10-PCS; CPT 31541; principal; 2021-07-12 08:25)
DX: R49.0 Dysphonia (principal); J38.3 Other diseases of vocal cords; J44.9 Chronic obstructive pulmonary disease, unspecified; I25.10 Atherosclerotic heart disease of native coronary artery without angina pectoris; Z95.5 Presence of coronary angioplasty implant and graft; I10 Essential (primary) hypertension; I25.2 Old myocardial infarction; E78.5 Hyperlipidemia, unspecified; E11.40 Type 2 diabetes mellitus with diabetic neuropathy, unspecified; Z82.49 Family history of ischemic heart disease and other diseases of the circulatory system; Z83.3 Family history of diabetes mellitus; F17.210 Nicotine dependence, cigarettes, uncomplicated
CPT/HCPCS: 31541; 36416; 82962; 88305; 96365; 96374; J0171; J1100; J2250; J2405; J2704; J3010; J3490; J7030; J7040; P9041

== ENCOUNTER → 2021-10-12 13:58 | Outpatient (BNVA) | payer MEDICARE, SELFPAY | PROVIDERS: PCP Family Medicine; Visit Provider Family Medicine | DX: J44.9 Chronic obstructive pulmonary disease, unspecified (principal); E11.42 Type 2 diabetes mellitus with diabetic polyneuropathy; B02.9 Zoster without complications; E11.49 Type 2 diabetes mellitus with other diabetic neurological complication; F17.219 Nicotine dependence, cigarettes, with unspecified nicotine-induced disorders; G62.9 Polyneuropathy, unspecified; I10 Essential (primary) hypertension; I25.119 Atherosclerotic heart disease of native coronary artery with unspecified angina pectoris; R49.0 Dysphonia; Z76.89 Persons encountering health services in other specified circumstances; M79.2 Neuralgia and neuritis, unspecified; F17.218 Nicotine dependence, cigarettes, with other nicotine-induced disorders; E55.9 Vitamin D deficiency, unspecified | CPT/HCPCS: 82306; 82607; 82746 ==

== ENCOUNTER → 2021-10-27 10:16 | Outpatient (BNVA) | payer MEDICARE, SELFPAY | PROVIDERS: PCP Family Medicine; Visit Provider Internal Medicine Pulmonary Disease | DX: J44.9 Chronic obstructive pulmonary disease, unspecified (principal); J96.12 Chronic respiratory failure with hypercapnia; R49.0 Dysphonia; Z71.6 Tobacco abuse counseling; F17.210 Nicotine dependence, cigarettes, uncomplicated; E78.5 Hyperlipidemia, unspecified; I10 Essential (primary) hypertension; E11.8 Type 2 diabetes mellitus with unspecified complications | CPT/HCPCS: 99214 ==

== ENCOUNTER → 2022-01-12 09:45 | Outpatient (BNVA) | payer MEDICARE, SELFPAY | PROVIDERS: PCP Family Medicine; Visit Provider Internal Medicine Pulmonary Disease | DX: J44.9 Chronic obstructive pulmonary disease, unspecified (principal); J96.12 Chronic respiratory failure with hypercapnia; Z71.6 Tobacco abuse counseling; F17.210 Nicotine dependence, cigarettes, uncomplicated; I10 Essential (primary) hypertension; E78.5 Hyperlipidemia, unspecified; E11.69 Type 2 diabetes mellitus with other specified complication | CPT/HCPCS: 99214 ==

== ENCOUNTER → 2022-05-30 12:22 | Outpatient (BNVA) | payer MEDICARE, SELFPAY | PROVIDERS: PCP Family Medicine; Visit Provider Internal Medicine Cardiovascular Disease | DX: M79.2 Neuralgia and neuritis, unspecified (principal); E11.42 Type 2 diabetes mellitus with diabetic polyneuropathy; F17.218 Nicotine dependence, cigarettes, with other nicotine-induced disorders; J44.9 Chronic obstructive pulmonary disease, unspecified; I25.119 Atherosclerotic heart disease of native coronary artery with unspecified angina pectoris; E78.2 Mixed hyperlipidemia; I10 Essential (primary) hypertension; Z95.5 Presence of coronary angioplasty implant and graft | CPT/HCPCS: 99213; 99214 ==

== ENCOUNTER 2022-08-14 12:19 | Outpatient (CLI) | payer MEDICARE, SELFPAY ==
--- NOTE | 2022-08-14 12:15 | CT_ITS ---
WS: [id number] LDCT LUNG CANCER SCREENING HISTORY: lung screening TECHNIQUE: Axial imaging performed from the apices to 1 cm below the costophrenic angles. Coronal and sagittal reformats are submitted with axial MIP series. All CT scans at [facility] use at least one of these dose optimization techniques: automated exposure control; mA and/or kV adjustment per patient size (includes targeted exams where dose is matched to clinical indication); or iterativ e reconstruction. DLP: 79.87 mGy.cm DIvol: Mean CTDIvol: 1.60 (mGy) COMPARISON: 10/02/2020 Diagnostic quality: Satisfactory Lung Nodules: No nodule or endobronchial lesions. Lungs: Peripheral reticulations are noted greatest throughout the RIGHT upper lobe. There is a small amount pleural thickening in the LEFT upper lobe and LEFT lower lobes. These reticulations are probab ly related to smoking history. Heart: Normal size heart. Very heavy coronary artery calcification. Calcification involves all 3 deborah r coronary arteries. Other findings: Extensive atherosclerosis of the thoracic aorta. Focal aneurysmal dilatation of the d istal aorta at 3.5 cm. Similar to the prior study. No adenopathy. CT/CT lung screening [id number] IMPRESSION: LUNG-RADS: 2S-Benign Appearance or Behavior with Significant Findings FOLLOW UP: 12 Month: Continue annual screening with LDCT OTHER FINDINGS (S MODIFIER): Extensive coronary artery calcifications and ather osclerotic disease with small aneurysm descending aorta. Cardiology evaluation may be helpful if this has not been performed already.
== END 2022-08-14 12:20 | disposition home or self-care (01) ==
PROVIDERS: PCP Family Medicine; Visit Provider Internal Medicine Pulmonary Disease
DX: Z12.2 Encounter for screening for malignant neoplasm of respiratory organs (principal); F17.210 Nicotine dependence, cigarettes, uncomplicated
CPT/HCPCS: 71271; 94060; 94618; 94726; 94729

== ENCOUNTER 2022-08-14 12:19 | Outpatient (CLI) | payer MEDICARE, SELFPAY ==
--- NOTE | 2022-08-14 14:15 | USCV_ITS ---
Kristel Hernandez Age: 62 Gender: F : 1960 Exam Date: 08/14/2022 13:45 Ordering Phys: Gee Apodaca MD ([email or web address]) Technologist: MARTIN [place]am [place] [facility] [place]ication: CAD BP: 162 / 88 HR: 81 Rhythm: Sinus Technical Quality: Adequate MEASUREMENTS (Male / Female) Normal Values 2D ECHO LVOT Diameter 2.0 cm LV Ejection Fraction MOD 2C 73.3 % LV Ejection Fraction 2C AL 74.4 % LA Diameter 2.9 cm LA Width 2.3 cm LA Height 4.0 cm RA Width 2.0 cm RA Height 4.3 cm Aorta at Sinotubular Diameter 2.0 cm IVC Diameter 1.3 cm M-MODE Aortic Annulus Diameter 2.2 cm LA Ao Ratio MM 1.3 MV E Point Septal Separation 0.6 cm DOPPLER AV Peak Velocity 158.0 cm/s LVOT Peak Velocity 126.0 cm/s AV Area Cont Eq vti 2.6 cm squared AV Area Cont Eq pk 2.5 cm squared MV Peak Velocity 116.0 cm/s MV Area PHT 2.6 cm squared Mitral E to A Ratio 0.8 MV E' Velocity 51.5 cm/s Mitral E to MV E' Ratio 9.4 Mitral E to LV E' Lateral Ratio 9.2 Mitral E to LV E' Septal Ratio 9.6 TR Peak Velocity 250.1 cm/s TR Peak Gradient 25.0 mmHg TR Mean Velocity 226.9 cm/s TR Mean Gradient 20.9 mmHg TR Velocity Time Integral 70.9 cm TV Peak E Velocity 54.0 cm/s Right Atrial Pressure 3.0 mmHg Pulmonary Artery Systolic Pressu 28.0 mmHg PV Peak Velocity 116.0 cm/s RV Acceleration Time 0.2 s RV Ejection Time 0.3 s RV AcT/ET 0.5 FINDINGS Left Ventricle Normal left ventricular size, systolic function and wall thickness, with no regional wall motion abnormalities. Left ventricular ejection fraction is estimated at 70 %. Normal diastolic function. Right Ventricle Normal right ventricular size and systolic function. Right ventricular systolic pressure 28 mmHg. Right Atrium Normal right atrial size. Left Atrium Normal left atrial size. Mitral Valve Structurally normal mitral valve. No mitral valve stenosis. No mitral valve regurgitation. Aortic Valve Structurally normal trileaflet aortic valve. No aortic valve stenosis. No aortic valve regurgitation. Tricuspid Valve Structurally normal tricuspid valve. No tricuspid valve stenosis. Trace to mild tricuspid valve regurgitation. Pulmonic Valve Pulmonic valve not well visualized. No pulmonary valve stenosis. No significant pulmonary valve regurgitation. Pericardium No pericardial effusion. Echo free space anterior to the right ventricle likely represents a fat pad. Aorta Normal size aortic root and proximal ascending aorta. IVC Normal IVC dimension with <50% respiratory change of the inferior vena cava. CONCLUSIONS 1. Normal left ventricular size, systolic function and wall thickness, with no regional wall motion abnormalities. Left ventricular ejection fraction is estimated at 70 %. Normal diastolic function. 2. Trace to mild tricuspid valve regurgitation. 3. When compared to study dated 10/03/2020, left ventricular systolic function has improved and no wall motion abnormality was noted. Consuelo Odom MD (Electronically Signed) Final Date: 14 August 2022 17:11 S
== END 2022-08-14 12:20 | disposition home or self-care (01) ==
PROVIDERS: PCP Family Medicine; Visit Provider Internal Medicine Cardiovascular Disease
DX: I21.4 Non-ST elevation (NSTEMI) myocardial infarction (principal); I07.1 Rheumatic tricuspid insufficiency
CPT/HCPCS: 93306

== ENCOUNTER 2022-08-15 16:44 | Outpatient (CLI) | payer MEDICARE, SELFPAY ==
--- NOTE | 2022-08-15 16:58 | XR_ITS ---
WS: [id number] XR cervical spine 3V* [id number] REASON FOR EXAM: Fall with injury to neck FINDINGS: Mild to moderate straightening of the normal lordosis of the cervical spine. No significant vertebral body abnormality with normal odontoid. Moderate narrowing of the C4-C5 disc space with moderate anterior and posterior osteophytes. Moderate uncinate osteophytosis at C6-C7. No significant listhesis. Facet joints without significant abnormality. Extensive calcified plaque in both carotid arteries. XR/XR cervical spine 3V* [id number] IMPRESSION: Degenerative spondylosis as above. Extensive calcified carotid plaque bilaterally.
--- NOTE | 2022-08-15 16:58 | XR_ITS ---
WS: [id number] XR thoracic spine 2V [id number] REASON FOR EXAM: Fall with injury to neck FINDINGS: Mild scoliosis, less than 10 degrees, convex left. No significant focal vertebral body abnormality. Mild narrowing of the disc spaces with moderate osteophyte formation in the mid and lower thoracic sp ine. XR/XR thoracic spine 2V [id number] IMPRESSION: Degenerative spondylosis of the thoracic spine.
== END 2022-08-15 16:45 | disposition home or self-care (01) ==
PROVIDERS: PCP Family Medicine; Visit Provider Family Medicine
DX: M54.2 Cervicalgia (principal); M54.6 Pain in thoracic spine
CPT/HCPCS: 72040; 72070; 80053; 80061; 83036; 84439; 84443; 85025; 85651; 86140

== ENCOUNTER → 2022-08-24 12:50 | Outpatient (BNVA) | payer MEDICARE, SELFPAY | PROVIDERS: PCP Family Medicine; Visit Provider Internal Medicine Pulmonary Disease | DX: T78.40XA Allergy, unspecified, initial encounter (principal); F17.219 Nicotine dependence, cigarettes, with unspecified nicotine-induced disorders; J96.12 Chronic respiratory failure with hypercapnia; R06.02 Shortness of breath | CPT/HCPCS: 36415; 82785; 85025; 86003; 99214 ==

== ENCOUNTER → 2022-09-19 14:59 | Outpatient (BNVA) | payer MEDICARE, SELFPAY | PROVIDERS: PCP Family Medicine; Visit Provider Internal Medicine | DX: E11.49 Type 2 diabetes mellitus with other diabetic neurological complication (principal); E11.42 Type 2 diabetes mellitus with diabetic polyneuropathy; R39.15 Urgency of urination; M85.89 Other specified disorders of bone density and structure, multiple sites; R61 Generalized hyperhidrosis; E55.9 Vitamin D deficiency, unspecified; R63.5 Abnormal weight gain; Z68.32 Body mass index [BMI] 32.0-32.9, adult | CPT/HCPCS: 99214 ==

== ENCOUNTER 2022-09-26 06:07 | Emergency (ER) | payer MEDICARE, SELFPAY ==
[2022-09-26 06:08] VITALS: BMI 33.2
[2022-09-26 06:11] VITALS: BP 137/81; PULSE 102; RESP 16; TEMP 36.4; O2SAT 93
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
[2022-09-26] MEDS: pregabalin 100 mg Capsule 200 MG PO (06:45)
[2022-09-26] MEDS: ketorolac 30 mg/mL INJ 15 MG IM (06:46)
== END 2022-09-26 08:35 | disposition home or self-care (01) ==
PROVIDERS: Emergency Provider Emergency Medicine; PCP Family Medicine
DX: E11.42 Type 2 diabetes mellitus with diabetic polyneuropathy (principal); I25.10 Atherosclerotic heart disease of native coronary artery without angina pectoris; I10 Essential (primary) hypertension; E78.5 Hyperlipidemia, unspecified; F17.210 Nicotine dependence, cigarettes, uncomplicated; Z79.02 Long term (current) use of antithrombotics/antiplatelets
CPT/HCPCS: 96372; 99284; J1885

== ENCOUNTER 2022-09-27 13:49 | Emergency (ER) | payer MEDICARE, SELFPAY ==
[2022-09-27 13:51] VITALS: RESP 16; O2SAT 98
--- NOTE | 2022-09-27 14:05 | XRR_ITS ---
PROCEDURE INFORMATION: Exam: XR Chest Exam date and time: 09/27/2022 2:11 PM Age: 62 years old Clinical indication: Pain; Angina pectoris; Additional info: Chest pain TECHNIQUE: Imaging protocol: Radiologic exam of the chest. Views: 1 view. COMPARISON: CT lung screening [id number] 08/14/2022 12:26 PM FINDINGS: Lungs: Unremarkable. No consolidation. Pleural spaces: Unremarkable. No pleural effusion. No pneumothorax. Heart/Mediastinum: Unremarkable. No cardiomegaly. Bones/joints: Unremarkable. XR/XR chest 1V portable [id number] IMPRESSION: No acute findings.
[2022-09-27 14:36] LABS: Basophils % 0.1 %; Eosinophils # 0.3 10^3/uL (0.0-0.8); Eosinophils % 2.2 %; Hematocrit 52.5 % (37.0-47.0); Hemoglobin 17.2 g/dL (11.5-15.3); Lymphocytes # 0.6 10^3/uL (0.8-4.8); Lymphocytes % 4.3 %; Mean Corpuscular HGB Conc 32.8 g/dL (30.0-36.0); Mean Corpuscular Hemoglobin 29.3 pg (28.0-34.0); Mean Corpuscular Volume 89.4 fl (81-99); Mean Platelet Volume 11.5 fL (7.4-10.4); Monocytes # 0.6 10^3/uL (0.2-0.9); Monocytes % 4.5 %; Neutrophils % 88.5 %; Nucleated Red Blood Cells % 0 %; Platelet Count 211 10^3/cmm (130-400); Red Blood Count 5.87 10^6/uL (4.1-5.3); Red Cell Distribution Width 13.5 % (12.1-15.1); White Blood Count 13.3 10^3/uL (4.0-10.0)
[2022-09-27 14:47] VITALS: BP 101/70; PULSE 79; RESP 16; O2SAT 89
[2022-09-27 15:00] VITALS: PULSE 78; RESP 18; O2SAT 89
[2022-09-27 15:00] LABS: Troponin(5th) Baseline 15 ng/L (0-10)
[2022-09-27 15:02] LABS: Alanine Aminotransferase 22 U/L (0-33); Albumin Level 4.2 g/dL (3.5-5.2); Alkaline Phosphatase 118 U/L (35-105); Anion Gap 19.3 (5-19); Aspartate Amino Transferase 18 U/L (0-32); Blood Urea Nitrogen 79 mg/dL (8-23); Calcium 9.7 mg/dL (8.5-10.5); Carbon Dioxide 20 mmol/L (22-29); Chloride 93 mmol/L (98-107); Globulin 3.1 g/dL (1.3-4.6); Glomerular Filtration Rate 32.5 mL/min (90-130); Glucose 143 mg/dL (65-115); Osmolality Calculated 292 mOsm/kg (285-295); Potassium 4.3 mmol/L (3.5-5.1); Sodium 128 mmol/L (136-145); Total Bilirubin 0.3 mg/dL (0.15-1.2); Total Protein 7.3 g/dL (6.6-8.7)
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
--- NOTE | 2022-09-27 16:05 | ECG_ITS ---
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 Measurements Intervals [place] Rate: 78 P: 50 TX: 166 QRS: -37 QRSD: 86 T: 58 QT: 356 QTc: 407 Interpretive Statements SINUS RHYTHM LEFT AXIS DEVIATION [QRS AXIS < -30] NONSPECIFIC T-WAVE ABNORMALITY Compared to ECG 10/02/2020 18:00:12 T-wave abnormality now present Sinus tachycardia no longer present Myocardial infarct finding no longer present Electronically Signed On 09-27-2022 18:09:32 CONFIGURATION CONSULTANT by Franklin Qureshi M.D. [id number]
[2022-09-27 16:35] VITALS: BP 93/59; PULSE 76; RESP 18; O2SAT 93
[2022-09-27] MEDS: sodium chloride 0.9% 1,000 ML 999 ML IV ×2 (16:49→18:56)
[2022-09-27 17:09] LABS: Lactate (Lactic Acid level) 1.3 mmol/L (0.5-2.2)
[2022-09-27 17:29] LABS: Troponin 5 2HR 14.12 ng/L (0-10)
[2022-09-27 17:32] LABS: Troponin 5 2HR Delta -0.88 ABS# (0-10)
[2022-09-27 17:40] LABS: Alcohol Level < 10 mg/dL (0-10)
[2022-09-27 18:25] VITALS: BP 114/61; BP 115/70; BP 95/55; PULSE 71; PULSE 74; PULSE 80
[2022-09-27 18:27] LABS: Acetaminophen < 5.0 ug/mL (10-30); Salicylate < 0.3 mg/dL (3-10)
[2022-09-27 18:31] LABS: Cocaine Screen Urine Negative (Negative); PCP Screen Urine Negative (Negative); THC Screen Urine Negative (Negative)
[2022-09-27 18:32] LABS: Amphetamines Screen Urine Negative (Negative); Barbiturates Screen Urine Negative (Negative); Benzodiazepines Screen Urine Negative (Negative); Opiate Screen Urine Negative (Negative)
[2022-09-27 18:40] LABS: Add Urine Culture? No; Add Urine Microscopic? YES; Amorphous Sediment Urine TRACE /hpf; Bacteria Urine TRACE /hpf; Bilirubin Urine Neg (Negative); Blood Urine Trace (Negative); Glucose Urine UA 2+ (Normal); Ketones Urine Negative (Negative); Leukocyte Esterase Urine Negative (Negative); Nitrate Urine Negative (Negative); Protein Urine Neg (Negative); RBC Urine 0-4 /hpf (0-2); Specific Gravity, Urine 1.015 (1.005-1.030); Squamous Epithelial Cell Urine 0-4 /hpf (0-5); Urine Appearance Hazy (CLEAR); Urine Color Light yellow (Yellow); Urobilinogen Urine Neg (Negative); WBC Urine 0-4 /hpf (0-5); pH Urine 5 (5-7)
[2022-09-27 18:44] LABS: Adenovirus Not Detected (NOT DETECT); Chlamydia Pneumoniae Not Detected (NOT DETECT); Coronavirus 229E,HKU1,NL63,OC4 Not Detected (NOT DETECT); Human Metapneumovirus Not Detected (NOT DETECT); Human Rhinovirus/Enterovirus Not Detected (NOT DETECT); Influenza A Not Detected (NOT DETECT); Influenza A H1 Not Detected (NOT DETECT); Influenza A H1-2009 Not Detected (NOT DETECT); Influenza A H3 Not Detected (NOT DETECT); Influenza B Not Detected (NOT DETECT); Mycoplasma Pneumoniae Not Detected (NOT DETECT); Parainfluenza Virus Type 1 Not Detected (NOT DETECT); Parainfluenza Virus Type 2 Not Detected (NOT DETECT); Parainfluenza Virus Type 3 Not Detected (NOT DETECT); Parainfluenza Virus Type 4 Not Detected (NOT DETECT); Respiratory Syncytial Virus A Not Detected (NOT DETECT); Respiratory Syncytial Virus B Not Detected (NOT DETECT); SARS-COV-2 Not Detected (NOT DETECT)
[2022-09-27 20:19] VITALS: BP 110/72; PULSE 81; O2SAT 90
== END 2022-09-27 20:10 | disposition home or self-care (01) ==
PROVIDERS: Physician Assistant; Emergency Provider Emergency Medicine; PCP Family Medicine Adult Medicine
DX: E87.1 Hypo-osmolality and hyponatremia (principal); I95.9 Hypotension, unspecified; E86.0 Dehydration; Z79.02 Long term (current) use of antithrombotics/antiplatelets; Z20.822 Contact with and (suspected) exposure to COVID-19; F17.210 Nicotine dependence, cigarettes, uncomplicated; I25.10 Atherosclerotic heart disease of native coronary artery without angina pectoris; E11.9 Type 2 diabetes mellitus without complications; I10 Essential (primary) hypertension; E78.5 Hyperlipidemia, unspecified
CPT/HCPCS: 36415; 71045; 80053; 80306; 80307; 81001; 83605; 84484; 85025; 87040; 87635; 93005; 96360; 99285; J7030

== ENCOUNTER → 2022-12-10 15:52 | Outpatient (BNVA) | payer MEDICARE, SELFPAY | PROVIDERS: PCP Family Medicine; Visit Provider Internal Medicine Cardiovascular Disease | DX: I25.119 Atherosclerotic heart disease of native coronary artery with unspecified angina pectoris (principal); E11.49 Type 2 diabetes mellitus with other diabetic neurological complication; I10 Essential (primary) hypertension; J44.9 Chronic obstructive pulmonary disease, unspecified; J96.12 Chronic respiratory failure with hypercapnia; E78.2 Mixed hyperlipidemia; E11.42 Type 2 diabetes mellitus with diabetic polyneuropathy; F17.210 Nicotine dependence, cigarettes, uncomplicated; Z79.84 Long term (current) use of oral hypoglycemic drugs | CPT/HCPCS: 99214 ==

== ENCOUNTER 2022-12-20 07:11 | Outpatient (CLI) | payer MEDICARE, SELFPAY ==
--- NOTE | 2022-12-20 07:21 | MR_ITS ---
WS: [id number] MRI THORACIC SPINE noncontrast HISTORY: PAINFUL DIABETIC NEUROPATHY/DDD, LUMBOSACRAL COMPARISON: Thoracic spine radiographs 08/15/2022 TECHNIQUE: Multiplanar sequences are performed in sagittal and axial planes. Mild LEFT long curvature thoracic spine. No acute marrow edema or acute fractures. Disc spaces are na rrowed throughout most significant from T6-7 through T10-11. Small Schmorl's nodes defects at T11 and T12. Signal within the thoracic cord is normal. Normal tapering of the conus at L1. T1-2: No stenosis. LEFT foraminal nerve root sleeve diverticulum. T2-3: Normal. T3-4: Normal. T4-5: Normal. T5-6: Mild facet arthritis. T6-7: Normal. T7-8: Small central disc protrusion and mild facet arthritis. No stenosis. T8-9: Mild bilateral foraminal stenosis. T9-10: Small RIGHT paracentral disc protrusion and foraminal stenosis. T10-11: Moderate LEFT paracentral disc protrusion and facet arthritis. T11-12: Annular disc bulge with a central broad-based disc protrusion. Mild foraminal stenosis. Atherosclerotic changes with ectasia throughout the visualized thoracic aorta. MR/MR thoracic spin wo con* [id number] IMPRESSION: 1. Long mild curvature LEFT thoracic scoliosis. 2. No high-grade central or foraminal stenosis. Mild spondylitic changes most significant in the central thoracic spine. 3. Small central disc protrusion at T7-8. 4. Small RIGHT paracentral disc protrusion with foraminal stenosis at T9-10. 5. Moderate LEFT paracentral disc protrusion and facet arthritis at T10-11. 6. Mild broad-based disc protrusion at T11-12.
--- NOTE | 2022-12-20 07:23 | MR_ITS ---
WS: [id number] MRI LUMBAR SPINE NONCONTRAST HISTORY: LUMBOSACRAL RADICULOPATHY/DDD LUMBOSACRAL COMPARISON: None available. TECHNIQUE: Sagittal and axial multisequence imaging is submitted. Normal lumbar alignment with no compression fractures or marrow edema. Disc spaces and vertebral body heights are well-preserved. Conus terminates normally at L1. T12-L1: Negative. L1-L2: Normal. L2-L3: Mild annular disc bulging with flattening of the ventral thecal sac. Mild ligamentum flavum an d facet arthritis. L3-L4: Mild annular disc bulging with mild ligamentum flavum and facet arthritis. Very mild encroachm ent upon the subarticular recesses and foramina. No high-grade stenosis. L4-L5: Annular disc bulging with mild ligamentum flavum and facet arthritis. There is a small central disc extrusion which extends caudad disc level. Encroachment into the subarticular recesses and cont acting the traversing L5 nerve roots. Moderate subarticular recess stenosis. L5-S1: Annular disc bulging with disc encroaching upon the S1 nerve roots bilaterally in the subartic ular recesses. Mild facet arthritis. Mild foraminal narrowing. Normal paravertebral soft tissues. MR/MR lumbar spine wo con* [id number] IMPRESSION: 1. Shallow central disc extrusion at L4-5 extending below the disc level into the subarticular recesses. Moderate subarticular recess stenosis with disc cont acting the traversing L5 nerve roots. 2. Mild disc encroachment upon the S1 nerve roots at L5-S1. Mild foraminal juhi rowing at L5-S1. 3. Mild disc encroachment upon the subarticular recesses and foramina at L3-4.
== END 2022-12-20 07:12 | disposition home or self-care (01) ==
LOC: RAD 07:15
PROVIDERS: PCP Family Medicine; Visit Provider Anesthesiology Pain Medicine
DX: M51.17 Intervertebral disc disorders with radiculopathy, lumbosacral region (principal); M48.07 Spinal stenosis, lumbosacral region; E11.40 Type 2 diabetes mellitus with diabetic neuropathy, unspecified
CPT/HCPCS: 72146; 72148

== ENCOUNTER 2022-12-30 14:17 | Emergency (ER) | payer MEDICARE, SELFPAY ==
[2022-12-30 14:18] VITALS: BP 189/101; PULSE 100; RESP 20; TEMP 37.1; O2SAT 93
--- NOTE | 2022-12-30 14:27 | ED_ITS ---
HPI - Extremity Problem General: Chief complaint: Extremity Problem,Nontraumatic Stated complaint: all over pain Time Seen by Provider: 12/30/22 14:20 History of Present Illness: Patient presents here via EMS with overall complaints of overall diabetic neuropathy type pain. Patient says she is unable to get out of bed for the last 3 to 4 days due to her not getting her medicines refilled. These include Cymbalta 60 mg and Lyrica 200 mg. Onset (ago): unknown (3 to 4 days ago) Pain Consistency: constant Location: other (All over) Quality: burning and aching Radiation: none Relieving factors: medication Exacerbating factors: other (Running out of medicine) Associated symptoms: Reports no associated symptoms Review of Systems General: Reports: 10 or more systems reviewed and unremarkable except in HPI and below PFSH ED PFSH: Medical History JOVAN positive 11/07/2022 JOVAN titer/pattern 320 Aortic annular calcification Atherosclerosis of coronary artery NSTEMI 2020 & stent placement Calcification of both carotid arteries Carpal tunnel syndrome, bilateral EMG 11/07/[address] Khan, [place], bilateral medial nerve at wrist moderate severity Chronic pain of both feet Depression Diabetes mellitus type 2 with neurological manifestations 11/07/2022 A1c 6.9 [place] Essential hypertension Hyperlipidemia Osteoarthritis involving multiple joints on both sides of body Bilateral feet, right knee, cervical, thoracic and lumbar spine Polycythemia Hgb 17.2 and Hct 52.5 09/27/2022 Surgical menopause Vitamin D deficiency Vocal cord polyps Surgical History H/O: hysterectomy History of appendectomy History of bladder surgery Hx of cholecystectomy Presence of stent in LAD coronary artery Family History Mother CAD (coronary artery disease) Stroke Dementia Grandfather Cancer mouth Sister Cancer skin Anesthesia complication Lung disease Brother CAD (coronary artery disease) She has 11 siblings. 2 of her brothers had myocardial infarction in their late 40s. Chronic kidney disease (CKD) Sister COPD (chronic obstructive pulmonary disease) Lung disease Family/Other Diabetes Denies family history of Clotting disorder Suicide Bleeding disorder Social History Smoking and tobacco status: current every day smoker cigarettes Packs smoked per day: 1 Years cigarettes smoked: 46 Quit status (tobacco): considering quitting Second hand smoke exposure: Yes Smoking risk assessment/counseling performed?: Yes Alcohol intake: current Alcohol intake frequency: holidays/special occasions only Substance/Drug Use: never Lives independently: Yes Household members: significant other Marital status: Life Partner Current occupational status: disabled Pets and animals: Yes Do you think of yourself as: Straight/Heterosexual Current gender identity: Female Physical Exam Const: COMMON NORMALS: no acute distress, average body habitus, patient oriented x3, no limitations, healthy appearing, alert and well nourished HENMT: COMMON NORMALS: normocephalic, atraumatic, hearing grossly normal bilaterally, external ears normal, Normal external nose present and moist oral mucous membranes HEAD & SCALP: normocephalic and atraumatic NOSE: Normal external nose present EXTERNAL EAR: Yes external ears normal Eye: COMMON NORMALS: Equal, round and reactive pupils present, EOMs intact bilaterally, conjunctivae normal and no scleral icterus CONJUNCTIVA: Yes conjunctivae normal PUPIL: Yes Equal, round and reactive pupils present Neck/C-Spine: COMMON NORMALS: full ROM, no lymphadenopathy, supple, no meningeal signs, no JVD and Thyroid normal THYROID: Thyroid normal Lymph: LYMPHATIC: no lymphadenopathy noted Chest: COMMONS NORMALS: normal inspection of the chest and normal palpation of entire chest wall Resp: COMMON NORMALS: normal respiratory effort, No retractions, No use of accessory muscles and clear to auscultation bilaterally AUSCULTATION: clear to auscultation bilaterally Cardio: COMMON NORMALS: no JVD, regular rate, regular rhythm, S1 normal heart sound present, S2 normal heart sound present, No gallops present (Cardio), No clicks present (Cardio), No murmurs present (Cardio) and No rub (Cardio) RATE: regular rate RHYTHM: regular rhythm HEART SOUNDS: S1 normal heart sound present and S2 normal heart sound present GI: COMMON NORMALS: Normal to inspection, nondistended, normoactive bowel sounds present, Soft to palpation, non-tender, No hepatosplenomegaly present and no masses PALPATION: Yes Soft to palpation and Yes No hepatosplenomegaly present : COMMON NORMALS: Yes no CVA tenderness BLADDER/KIDNEY EXAM: Yes no CVA tenderness Back/Pelvis: COMMON NORMALS: no CVA tenderness Neuro: COMMON NORMALS: patient oriented x3 SENSORIUM/ORIENTATION: Yes alert MENINGEAL SIGNS: Yes no meningeal signs Course Vital Signs: Vital signs: Vital Signs Temperature 98.7 F 12/30/22 14:18 Pulse Rate 97 12/30/22 14:49 Respiratory Rate 16 12/30/22 14:49 Blood Pressure 122/106 12/30/22 14:49 Pulse Oximetry 92 12/30/22 14:49 Oxygen Delivery Me thod Room Air 12/30/22 14:49 MDM - Extremity (Nontraumatic) Medical Decision Making Patient presents to the ER with complaints of running out of medicine x3 to 4 days and increasing pain of her diabetic neuropathy further 4 days. Chart review reveals that she has done this before. Patient will be given Cymbalta and Lyrica as per her prescription, she will be given Toradol 30 mg IV. Patient reexamined feels much better. Patient says she has a prescription at the pharmacy she just can get them filled over the weekend but she gets them filled tomorrow. Patient be discharged home. Patient is to follow-up with her family practice doc within next week or sooner if needed Differential Diagnosis Unlikely herpes zoster, gout, cellulitis, superficial thrombophlebitis, deep venous thrombosis of upper extremity, lower extremity edema or deep vein thrombosis of lower extremity Medical Records I reviewed the patient's medical records. Lab Data I reviewed the patient's lab results. Discharge Plan Discharge Patient Disposition: Home Clinical Impression: Diabetes mellitus type 2 with neurological manifestations Condition: Stable Prescriptions: No Action multivitamin Capsule 1 cap PO DAILY cholecalciferol (vitamin D3) 25 mcg (1,000 unit) capsule 25 mcg PO DAILY cyanocobalamin (vitamin B-12) [Vitamin B-12] 5,000 mcg tablet, sublingual 5,000 mcg SUBLINGUAL DAILY omega-3 acid ethyl esters 1 gram capsule 2 cap PO DAILY Qty: 360 0RF Rx Instructions: Take 2 capsules by mouth daily amlodipine 5 mg tablet 5 mg PO DAILY Qty: 14 0RF atorvastatin 40 mg tablet 40 mg PO DAILY Qty: 14 0RF clopidogrel 75 mg tablet 75 mg PO DAILY Qty: 14 0RF Jardiance 25 mg tablet 25 mg PO QAM Qty: 14 0RF metoprolol tartrate 25 mg tablet 25 mg PO BID Qty: 28 0RF pantoprazole 40 mg tablet,delayed release (DR/EC) 40 mg PO DAILY 14 Days Qty: 14 0RF Trelegy Ellipta 100-62.5-25 mcg blister with device 1 inh inhalation DAILY Qty: 60 0RF calcipotriene 0.005 % cream See Rx Instructions .ROUTE .COMPLEX Qty: 60 10RF Dose Instruction: APPLY 1-2 APPLICATIONS TOPICALLY TO AFFECTED AREA 2-4 TIMES PER DAY. DO NOT APPLY TO FACE Rx Instructions: APPLY 1-2 APPLICATIONS TOPICALLY TO AFFECTED AREA 2-4 TIMES PER DAY. DO NOT APPLY TO FACE albuterol sulfate 90 mcg/actuation HFA aerosol inhaler 2 inh INHALATION Q4H PRN (Reason: shortness of breath or wheezing) Qty: 6.7 0RF (DME) glucose meter See Rx Instructions .Route .MEDSUPPLY Qty: 1 0RF Rx Instructions: As directed (DME) Accu-Chek Guide test strips Strip See Rx Instructions .Route Qty: 100 3RF Rx Instructions: As directed duloxetine 60 mg capsule,delayed release(DR/EC) See Rx Instructions .ROUTE .COMPLEX Qty: 30 5RF Dose Instruction: TAKE ONE CAPSULE BY MOUTH TWICE DAILY Rx Instructions: TAKE ONE CAPSULE BY MOUTH TWICE DAILY (DME) Comfort EZ Lancets 23 gauge misc See Rx Instructions .Route Qty: 200 3RF Rx Instructions: As directed pregabalin [Lyrica] 200 mg capsule 200 mg PO TID 30 Days Qty: 90 5RF Ozempic 0.25 mg or 0.5 mg (2 mg/3 mL) pen injector 0.25 mg SUBCUT Q7D 30 Days Qty: 2 0RF Rx Instructions: 0.25mg instead of 0.50mg prednisone 20 mg tablet 20 mg PO DAILY PRN (Reason: flare up) Discharge Orders: Discharge ED (Routine); Ordered 12/30/22 Ordered By: Kin Benavides Referrals: Lyndon Willingham DO [Primary Care Provider] - Patient Instructions: Diabetic Neuropathy (DC) Activity Restrictions/Additional Instructions: Please go to the pharmacy tomorrow to get all your prescriptions. Diabetic neuropathy filled. Please follow-up with your family doctor within next 1 week as needed. 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
[2022-12-30] MEDS: duloxetine 60 mg Capsule PO (14:35)
[2022-12-30] MEDS: ketorolac 30 mg/mL INJ IVP (14:43)
[2022-12-30 14:49] VITALS: BP 122/106; PULSE 97; RESP 16; O2SAT 92
[2022-12-30] MEDS: LORazepam 2 mg/mL INJ 1 mL 1 MG IVP (14:59)
[2022-12-30] MEDS: pregabalin 50 mg Capsule 200 MG PO (14:59)
== END 2022-12-30 15:59 | disposition home or self-care (01) ==
PROVIDERS: Emergency Provider Emergency Medicine; PCP Family Medicine
DX: E11.42 Type 2 diabetes mellitus with diabetic polyneuropathy (principal); T43.216A Underdosing of selective serotonin and norepinephrine reuptake inhibitors, initial encounter; T42.6X6A Underdosing of other antiepileptic and sedative-hypnotic drugs, initial encounter
CPT/HCPCS: 96374; 96375; 99284; J1885; J2060

== ENCOUNTER → 2023-01-23 14:17 | Outpatient (BNVA) | payer MEDICARE, SELFPAY | PROVIDERS: PCP Family Medicine; Visit Provider Internal Medicine | DX: E11.49 Type 2 diabetes mellitus with other diabetic neurological complication (principal); R61 Generalized hyperhidrosis; E55.9 Vitamin D deficiency, unspecified; R63.5 Abnormal weight gain; M85.89 Other specified disorders of bone density and structure, multiple sites; M85.80 Other specified disorders of bone density and structure, unspecified site; I10 Essential (primary) hypertension; Z68.32 Body mass index [BMI] 32.0-32.9, adult; Z79.84 Long term (current) use of oral hypoglycemic drugs | CPT/HCPCS: 99214 ==

== ENCOUNTER → 2023-06-05 15:11 | Outpatient (BNVA) | payer MEDICARE, SELFPAY | PROVIDERS: PCP Family Medicine Adult Medicine; Visit Provider Internal Medicine Cardiovascular Disease | DX: R07.9 Chest pain, unspecified (principal); R00.2 Palpitations; R06.02 Shortness of breath; R25.2 Cramp and spasm; I25.119 Atherosclerotic heart disease of native coronary artery with unspecified angina pectoris; E11.49 Type 2 diabetes mellitus with other diabetic neurological complication; I10 Essential (primary) hypertension; J44.9 Chronic obstructive pulmonary disease, unspecified; G62.9 Polyneuropathy, unspecified; F17.210 Nicotine dependence, cigarettes, uncomplicated; R94.31 Abnormal electrocardiogram [ECG] [EKG] | CPT/HCPCS: 80048; 83735; 93005; 99214 ==

== ENCOUNTER → 2023-09-09 11:20 | Outpatient (BNVA) | payer MEDICARE, SELFPAY | PROVIDERS: PCP Family Medicine Adult Medicine; Visit Provider Internal Medicine Cardiovascular Disease | DX: I10 Essential (primary) hypertension (principal); E78.2 Mixed hyperlipidemia; Z72.0 Tobacco use; I25.119 Atherosclerotic heart disease of native coronary artery with unspecified angina pectoris; E11.49 Type 2 diabetes mellitus with other diabetic neurological complication; D75.1 Secondary polycythemia; R76.8 Other specified abnormal immunological findings in serum; J44.9 Chronic obstructive pulmonary disease, unspecified | CPT/HCPCS: 99214 ==

== ENCOUNTER → 2024-10-30 13:50 | Outpatient (BNVA) | payer MEDICARE, MEDICAID, SELFPAY | PROVIDERS: PCP Family Medicine Adult Medicine; Visit Provider Family Medicine | DX: E11.49 Type 2 diabetes mellitus with other diabetic neurological complication (principal); E78.2 Mixed hyperlipidemia; I10 Essential (primary) hypertension; I25.119 Atherosclerotic heart disease of native coronary artery with unspecified angina pectoris | CPT/HCPCS: 80053; 80061; 82043; 82607; 83036; 84439; 84443; 85025 ==

== ENCOUNTER 2024-12-01 11:55 | Outpatient (CLI) | payer MEDICARE, SELFPAY ==
--- NOTE | 2024-12-01 12:00 | CT_ITS ---
WS: [id number] LDCT LUNG CANCER SCREENING TECHNIQUE: Noncontrast CT of the chest with coronal and sagittal reformatted images. CLINICAL INFORMATION: smoker; 50pk yr; screening COMPARISON: 2022 DLP: 92.20 mGy.cm DIvol: Mean CTDIvol: 2.10 (mGy) All CT scans at [facility] use at least one of these dose optimization techniques: automated exposure control; mA and/or kV adjustment per patient size (includes targeted exams where dose is matched to clinical indication); or iterative reconstruction. FINDINGS: No new suspicious pulmonary parenchymal abnormalities. Vascular calcification. Dense coronary calcification. Fusiform aneurysmal dilatation of the descending thoracic aorta measuring 3.5 cm unchanged. This measures 4.5 cm craniocaudal unchanged. Cholecystectomy clips. Normal GE junction. Adrenal glands are normal. Normal caliber ascending thoracic aorta. No mediastinal or hilar lymphadenopathy. No axillary lymphadenopathy. Dorsal spinal stimulator. Mild thoracic curve but hypertrophic changes thoracic spine. CT/CT lung screening [id number] IMPRESSION: LUNG-RADS: 2-Benign Appearance or Behavior FOLLOW UP: 12 Month: Continue annual screening with LDCT
== END 2024-12-01 11:56 | disposition home or self-care (01) ==
PROVIDERS: PCP Family Medicine; Visit Provider Family Medicine
DX: Z12.2 Encounter for screening for malignant neoplasm of respiratory organs (principal); F17.218 Nicotine dependence, cigarettes, with other nicotine-induced disorders; I25.10 Atherosclerotic heart disease of native coronary artery without angina pectoris; I77.810 Thoracic aortic ectasia; Z90.49 Acquired absence of other specified parts of digestive tract; Z96.89 Presence of other specified functional implants; M43.8X4 Other specified deforming dorsopathies, thoracic region; M89.38 Hypertrophy of bone, other site
CPT/HCPCS: 71271

== ENCOUNTER → 2025-03-22 14:29 | Outpatient (BNVA) | payer MEDICARE, SELFPAY | PROVIDERS: PCP Family Medicine; Visit Provider Family Medicine | DX: E11.49 Type 2 diabetes mellitus with other diabetic neurological complication (principal); Z11.59 Encounter for screening for other viral diseases | CPT/HCPCS: 83036; 86803 ==